=== PATIENT | male | born 1935 | race Caucasian/White ===

== ENCOUNTER 2022-06-01 00:11 | Day surgery (SDC) | payer MEDICARE, SELFPAY ==
[2022-05-23 13:48] VITALS: BMI 26.4
--- NOTE | 2022-05-23 14:14 | PC.NURSE ---
Report to the Outpatient Waiting Room, entrance under the green pavilion located off [facility], at time __8:00AM on date _06/01/22 . Planned Procedure Time: __9:00AM . Time changes happen often and if your time is changed the preop area will call you the afternoon before. - You and your visitor will be asked to self-screen and do not enter if you have any COVID symptoms. - Only one visitor is requested with a max of two and NO children visitors are allowed at this time. - The patient visitor may be requested to leave or wait in car when not with patient due to distancing restrictions. - A mask is optional within the hospital. Patients may have LIGHT BREAKFAST. - Infants may have breast milk until 4 hours before surgery, infant formula 6 hours prior to surgery. - Children will be allowed to drink immediately following surgery. If applicable, please bring a bottle or sippy cup to assist with drinking. Juice, water, soda, and popsicles are readily available. For infants on formula, please bring formula the day of surgery. Pacifiers are allowed. Take the following medications with a SIP of water the morning of surgery: __AMLODIPINE, ALBUTEROL INHALER NEEDED Medications to discontinue per physician ____NONE Date to take last dose Please no make-up, nail iraqi, hairspray, perfume, deodorant, or body powder the day of surgery. No jewelry (including any body piercings) or valuables the day of surgery, leave them at home. Please take a shower or bath the night before, or the morning of, surgery with an antibacterial soap. Wear comfortable, loose fitting clothing. Children are encouraged to wear pajamas. - Jewelry must be removed prior to entering the operating room. Rings and piercings that are not removed may be cut off. - The hospital will not accept responsibility for valuables. - Please leave all valuables, including medications, at home the day of surgery. If you are going home after surgery, MAY HAVE SILK SCREEN PRINTER HELPER OR DRIVE SELF. - NO public transportation without another adult if you receive anesthesia. - We recommend that an adult stay with you for 24 hours following discharge. - We also recommend that you do not drive, make important decision, drink alcoholic beverages, or take any drugs that were not prescribed by your health care provider for at least 24 hours after your discharge time. Follow any additional instructions given to you from your surgeon. If you or anyone in your household have experienced Covid symptoms in the past week, please notify your surgeon or the nurse liaison at the phone number below for possible testing. Telephone instructions given to ___PATIENT and asked if any additional questions and then verbalized understanding. Patient advised to call surgeon office or pre surgery nurse liaison [phone] if any additional questions.
[2022-06-01] VITALS (12 sets, daily range): BP systolic 140–194; BP diastolic 62–87; PULSE 70–94; RESP 16; TEMP 37.1; O2SAT 91–99; BMI 24.0
--- NOTE | 2022-06-01 07:27 | WPDHPUPDATE1 ---
History and Physical Update Update Date/Time: 06/01/22 07:27 History and Physical has been reviewed, including an updated exam of the patient. There are NO changes in the patient's condition. Risks, benefits, and alternatives have been discussed and questions answered. Patient agrees to proceed with procedure.
[2022-06-01] MEDS: LIDO 1%/EPINEPHRINE/PF 1:200,000 30 ML VIAL XX (08:16)
--- NOTE | 2022-06-01 08:33 | SUR.OPER ---
Frozen Section specimen given to OZIEL Portillo at 0830, received by Libertad in pathology lab at 0895
[2022-06-01] MEDS: BACITRACIN OINTMENT 15 GM TUBE 1 APPLIC TOPICAL (09:06)
--- NOTE | 2022-06-01 11:17 | P.OP_ITS ---
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 We also marked a placed on the left volar forearm for removal of the graft if needed. He was taken to the operating room and placed supine on the operating table. A time-out was held and confirmed. The extremity was prepped and draped in usual fashion. Markings were made for the incisions and all 3 sites were anesthetized with 1% lidocaine epinephrine. To allow time for hemostatic effect in lieu of a tourniquet we excised 1st the lesion from the radial thumb at the thenar mass. The full-thickness skin ellipse was taken and the specimen sent for permanent section. The wound was closed with intradermal 4-0 Vicryl suture and a running 5 0 nylon, closing the skin paralleling the local skin flexion lines. At that point I went ahead to incise the post full-thickness graft. That was elevated and defatted. The wound was closed with intradermal 4-0 Monocryl suture and a running 5 0 nylon. The previously biopsied squamous cell carcinoma in Situ at the base of the index finger was incised and removed with scissors from the underlying subcutaneous ti ssue. The neurovascular bundle was not clearly identified. The specimen was marked at its distal point on the index finger with a suture for 12 o'clock. The pathologist revealed diagnosis remained the same and that the margins were free. The defatted graft was inset with interrupted 6 0 nylon a couple of quilting sutures were placed across the middle of that. Small somewhat compressive bandage was applied to which was on ulnar base of the index finger proximal phalanx. The index and middle finger were then taped together without enough pressure to occlude the arteries. The same wrap was continued on to thenar wound. The donor site was dressed with gauze and Tegaderm. The patient was discharged from the operating stable condition. He is being discharged home with a suggestion for the use of Tylenol as needed for pain as well as elevation and icing if necessary. He is also prescribed cephalexin 500 mg t.i.d. 15. Estimated Blood Loss 2 Drains No Packing No Pathology Yes Complications No immediate complications Condition Stable Disposition Same day
== END 2022-06-01 10:00 | disposition home or self-care (01) ==
PROVIDERS: PCP Emergency Medicine; Visit Provider Plastic Surgery
PROC: (CPT 11622; principal; 2022-06-01 07:30)
DX: C44.629 Squamous cell carcinoma of skin of left upper limb, including shoulder (principal); L57.0 Actinic keratosis; I10 Essential (primary) hypertension; J45.909 Unspecified asthma, uncomplicated; Z87.891 Personal history of nicotine dependence
CPT/HCPCS: 11622; 15240; 11422; 12042; 88305; 88331; A9270

== ENCOUNTER 2023-04-11 10:45 | Emergency (ER) | payer MEDICARE, SELFPAY ==
[2023-04-11] VITALS (16 sets, daily range): BP systolic 117–143; BP diastolic 54–92; PULSE 69–93; RESP 13–21; TEMP 36.2–36.8; O2SAT 97–100
--- NOTE | ~2023-04-11 | CT_ITS ---
EXAMINATION: CT brain wo con DATE: 04/11/2023 18:10 INDICATION: Intracranial hemorrhage. TECHNIQUE: Computed tomography (CT) of the head was performed without intravenous contrast. The mA wa s adjusted according to patient size. Iterative reconstruction technique was employed. The dose-lengt h product was 983.67 mGy-cm. COMPARISON: Head CT at 11:47 AM FINDINGS: There is a mixed hypodense and hyperdense right frontoparietal subdural hematoma with maxim um thickness of 6 mm. There is a hypodense left frontoparietal subdural hematoma with maximum thickne ss of 5 mm. There is a small acute hyperdense subdural hematoma at the right cerebellar tentorium and inferior to right temporal lobe. There are scattered areas of low attenuation in the cerebral white matter, which is within normal limits for the patient's age. There is no acute ischemic infarct. The ventricles are normal in size. There are likely changes of ocular lens replacement surgeries. 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 There is mild mucosal thickening in the paranasal sinuses. The ma stoid air cells are normal. IMPRESSION: 1. 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 Stable small chronic left-sided subdu ral hematoma. Reviewed, dictated and finalized at location E. IMPRESSION: 1. 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 Stable small ch ronic left-sided subdural hematoma.
--- NOTE | ~2023-04-11 | CT_ITS ---
Noncontrast CT scan of the cervical spine Technique: Multiple contiguous axial [address] images of the cervical spine were obtained and rec onstructed in 2D sagittal and coronal planes on the acquisition scanner. Dose reduction technique was used on this scan by utilizing automated exposure control, adjustment of the mA and/or kV according to patient size. The dose-length product (DLP) was 255.25 mGy-cm. Clinical History: Pain Findings: No fracture identified. There is 3 mm retrolisthesis of C4 over C5. There is right neural f oraminal narrowing at C3-C4 related to prominent right facet arthropathy. There is right neural colby inal narrowing at C4-C5, with right facet arthropathy. There is bilateral neural foraminal narrowing, left worse than right, at C5-C6, with bilateral facet arthropathy, left worse than right. No prevert ebral soft tissue swelling. Impression: No fracture. 3 mm retrolisthesis of C4 over C5. Degenerative changes, as detailed above. Reviewed, dictated and finalized at [facility]. Impression: No fracture. 3 mm retrolisthesis of C4 over C5. Degenerative changes, as detailed above.
--- NOTE | ~2023-04-11 | XR_ITS ---
Clinical Indication: Weakness AP and lateral views of the chest: Comparison: 01/11/2010 Findings: The lungs are clear, without evidence of focal consolidation or pleural effusion. Cardiome diastinal silhouette is within normal limits. Bones and soft tissues are unremarkable. Impression: Normal chest. Reviewed, dictated and finalized at [facility]. Impression: Normal chest.
--- NOTE | ~2023-04-11 | CT_ITS ---
Non-contrast Head CT History: Altered mental status Technique: Axial non-contrast imaging of the brain was performed. Dose reduction technique was used on this scan by utilizing automated exposure control and iterative reconstruction technique. The dose -length product (DLP) was 605.33 mGy-cm. Findings: There is a small acute on chronic right cerebral convexity subdural hematoma. Area of acute hemorrhage measures up to 3 mm in thickness. There is also a very small chronic subdural hematoma/hy groma along the left frontal convexity.. The ventricles and subarachnoid spaces are normal in size. The calvarium appears normal. The visualized paranasal sinuses and mastoid air cells are clear. Impression: Small acute on chronic right frontal convexity subdural hematoma, as detailed above. 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 Case discussed with Dr. Florez at the time of this reading. Reviewed, dictated and finalized at [facility]. Impression: Small acute on chronic right frontal convexity subdural hematoma, as detailed a juanita. 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 Case discussed with Dr. Florez at the time of this reading.
--- NOTE | 2023-04-11 10:55 | ECG_ITS ---
Measurements Intervals [place] Rate: 77 P: [place]: 0 QRS: 92 QRSD: 110 T: 99 QT: 384 QTc: 437 Interpretive Statements ATRIAL FIBRILLATION BORDERLINE RIGHT AXIS DEVIATION [QRS AXIS > 90] ANTEROSEPTAL MYOCARDIAL INFARCTION , PROBABLY OLD [40+ ms Q WAVE IN V1-V4] NO PREVIOUS ECG AVAILABLE FOR COMPARISON Electronically Signed On 04-11-2023 15:05:16 CDT by Adonay Fernandez M.D.
--- NOTE | 2023-04-11 11:10 | PC.NURSE ---
spoke with DR. Florez regarding pt fall and s/s and CT head and neck ordered per V.O
[2023-04-11 11:40] LABS: Basophils Absolute Auto 0.1 K/mm3 (0.0-0.1); Basophils Percent Auto 0.6 % (0.2-1.2); Eosinophils Absolute Auto 0.2 K/mm3 (0-0.3); Eosinophils Percent Auto 2.2 % (0-4.4); Hematocrit 34.6 % (42.0-52.0); Hemoglobin 11.2 g/dL (14.0-18.0); Immature Granulocyte Absolute 0.03 K/mm3 (0.00-0.031); Immature Granulocyte Percent A 0.3 % (0-0.5); Lymphocytes Absolute Auto 1.02 K/mm3 (0.9-3.2); Lymphocytes Percent Auto 11.9 % (18.3-44.2); Mean Corpuscular HGB Conc 32.4 g/dl (32-36); Mean Corpuscular Hemoglobin 33.6 pg (26-34); Mean Corpuscular Volume 103.9 fl (80-100); Mean Platelet Volume 8.5 fl (7.4-10.4); Monocytes Absolute Auto 0.5 K/mm3 (0.1-0.6); Monocytes Percent Auto 6.1 % (2.6-8.5); Neutrophils Absolute Auto 6.8 K/mm3 (1.3-6.7); Neutrophils Percent Auto 78.9 % (45.5-73.1); Platelet Count Result 185 k/mm3 (150-375); Red Blood Count 3.33 M/mm3 (4.6-6.20); Red Cell Distribution Width 13.4 % (11.5-14.5); White Blood Count 8.6 K/mm3 (4.5-10.0)
[2023-04-11 11:51] LABS: Alanine Aminotransferase 22 U/L (6-50); Albumin Level 3.7 g/dL (3.5-5.1); Alkaline Phosphatase 58 U/L (38-126); Anion Gap 7 mmol/L (8-16); Aspartate Amino Transferase 25 U/L (17-59); Bilirubin,Total 1.1 mg/dL (0.2-1.3); Blood Urea Nitrogen 44 mg/dL (9-20); Calcium 8.9 mg/dL (8.4-10.2); Carbon Dioxide 24 mmol/L (22-30); Chloride 106 mmol/L (98-107); Estimated CRCL calculation 31 ml/min; Estimated Glomerular Filt Rate 34; Glucose 105 mg/dL (65-110); Potassium 3.8 mmol/L (3.4-5.0); Sodium 137 mmol/L (137-145)
--- NOTE | 2023-04-11 12:12 | ED.FALL ---
HPI - Fall General Chief Complaint: Fall Stated Complaint: fall 1 week ago, AMS Time Seen by Provider: 04/11/23 12:11 Source: patient and family Limitations: no limitations History of Present Illness HPI Narrative: 87 years old white male came from home with his family by ambulance complaining of worsening balance, unsteady gait over the last few days after falling 1 week ago. His is telling me that patient is having intermittent confusion and hallucination. She denied that the patient have any nausea or vomiting or fever or chills or or chest pain or shortness of breath. Patient currently on aspirin. Uses a walker, does not smoke or uses drugs, drinks daily Related Data Home Medications Medication Instructions Recorded Confirmed aspirin 81 mg tablet,delayed 81 mg PO HS 04/14/22 02/13/23 release (Adult Low Dose Aspirin) doxycycline hyclate 100 mg capsule mg PO BID 02/13/23 02/13/23 niacinamide 500 mg tablet 500 mg PO TID 02/13/23 02/13/23 Allergies Allergy/AdvReac Type Severity Reaction Status Date / Time No Known Allergies Allergy Verified 04/11/23 12:06 Review of Systems Review of Systems: All systems reviewed & are unremarkable except as noted in HPI and below PMFSH Past Medical History Medical History (Updated 04/11/23 @ 15:50 by Clarke Díaz MD) Polyp, nasal Family History Family History Mother Patient's mother is , Onset Age: 91 Father Family history of lung cancer, Onset Age: 52 Social History Social History (Updated 02/13/23 @ 11:31 by ROCÍO Sy) Smoking packs per day: 1.5 Smoking cigarettes per day: 30.0 Years smoked: 10 Smoking pack-years: 15.00 Smoking status: Former smoker Tobacco type: cigarettes Smoking end date: 12/24/1964 Alcohol intake: current Drinks per week: 14 Substance use: never Substance use type: does not use Lack of Transportation: No Lack of Food: Never True Current Housing: I Have Housing Concerned About Future Housing: No Difficulty Paying Gas/Electric Bills: No Difficulty Paying for Meds: No Currently Unemployed: No Education: High School Diploma/GED Difficulty w/ Childcare or Family Care: No Living arrangements: with family Additional living arrangements comments: Spiritual care concerns: No Exam Narrative: General appearance: Well-developed, well-nourished Skin: Normal color Head: Normocephalic, nontraumatic Eyes: Clear conjunctiva ENT: Oropharynx normal, ears normal, nose normal Neck: Supple, nontender Chest and respiratory: Airway patent, no respiratory distress, no accessory muscle use Heart: Regular rate/rhythm Abdomen: Soft, nontender, no organomegaly, quiet bowel sounds Vascular: Normal peripheral pulses, normal capillary refill. Musculoskeletal: Normal range of motion, nontender back, unsteady gait Neurologic: Alert and oriented ?3, MANAGER MEDIA RELATIONS is normal as tested, no gross motor deficit Course Consultations Consultation #1: DR WEST, neurosurgeon at [facility] who recommended to repeat CT scan of the head in 6 hours and if there is no new changes patient to go home to follow-up with his clinic in 1 week at [address] [facility], phone number is [phone] Date: 04/11/23 Time: 12:39 Vital Signs Vital signs: Vital Signs Temperature 36.2 C L 04/11/23 10:48 Pulse Rate 89 04/11/23 10:48 Respiratory Rate 16 04/11/23 10:48 Blood Pressure 122/71 04/11/23 10:48 Pulse Oximetry 99 04/11/23 10:48 Oxygen Delivery Room Air 04/11/23 10:48 Temperature 36.7 C 04/11/23 16:31 Pulse Rate
[2023-04-11 13:34] LABS: Prothrombin Time 13.6 Seconds (11.1-14.7)
[2023-04-11 13:35] LABS: Partial Thromboplastin Time 26.3 SECONDS (22.3-36.8)
[2023-04-11 13:39] LABS: Troponin I < 0.012 ng/mL (0.000-0.034)
--- NOTE | 2023-04-11 13:50 | ECG_ITS ---
Measurements Intervals [place] Rate: 75 P: MD: 0 QRS: 24 QRSD: 99 T: 39 QT: 286 QTc: 321 Interpretive Statements ATRIAL FIBRILLATION WITH ABERRANT CONDUCTION OR VENTRICULAR PREMATURE COMPLEXES ANTEROSEPTAL MYOCARDIAL INFARCTION , PROBABLY OLD [40+ ms Q WAVE IN V1-V4] COMPARED TO ECG 04/11/2023 12:29:00 NO SIGNFICANT CHANGES Electronically Signed On 04-11-2023 15:05:42 CDT by Adonay Fernandez M.D.
[2023-04-11 15:20] LABS: Appearance Urine Clear (Clear); Bacteria Urine None Seen /hpf; Bilirubin Urine Negative (Negative); Blood Urine Negative (Negative); Color Urine Yellow (Yellow); Glucose Urine UA Negative (Negative); Ketones Urine Negative (Negative); Leukocyte Esterase Ur Negative LEU/UL (Negative); Nitrate Urine Negative (Negative); Non Pathogenic Casts 0-2; Protein Urine 1+ mg/dL (Negative); RBC Urine 0-2 /hpf (0-2); Specific Grav Ur 1.019 (1.001-1.035); Squamous Epithelial Cell Urine None seen /hpf (Few); WBC Urine 0-5 /hpf; pH Urine 5.5 (5.0-9.0)
[2023-04-11 15:33] LABS: Add Urine Microscopic? YES
[2023-04-11] MEDS: SODIUM CHLORIDE 0.9% IV 1,000 ML 999 ML IV CONT (16:09)
== END 2023-04-11 20:26 | disposition home or self-care (01) ==
PROVIDERS: Emergency Medicine; Emergency Provider Emergency Medicine; PCP Emergency Medicine
DX: S06.5XAA Traumatic subdural hemorrhage with loss of consciousness status unknown, initial encounter (principal); I48.91 Unspecified atrial fibrillation; Z87.891 Personal history of nicotine dependence; Z79.82 Long term (current) use of aspirin; R94.31 Abnormal electrocardiogram [ECG] [EKG]; W19.XXXA Unspecified fall, initial encounter
CPT/HCPCS: 36415; 70450; 71046; 72125; 80053; 81001; 84484; 85025; 85610; 85730; 93005; 96360; 96361; 99284; J7030

== ENCOUNTER 2023-05-08 13:42 | Outpatient (CLI) | payer MEDICARE, SELFPAY ==
--- NOTE | ~2023-05-08 | CT_ITS ---
Non-contrast Head CT History: Subdural hemorrhage COMPARISON: 04/11/2023 Technique: Axial non-contrast imaging of the brain was performed. Dose reduction technique was used on this scan by utilizing automated exposure control and iterative reconstruction technique. The dose -length product (DLP) was 605.33 mGy-cm. Findings: There is no evidence of intracranial hemorrhage, mass lesion, or acute infarct. Brain par enchyma appears normal. The ventricles and subarachnoid spaces are normal in size. The calvarium ap pears normal. The visualized paranasal sinuses and mastoid air cells are clear. Impression: No significant abnormality seen. Previously noted small subdural hematomas are resolved. Reviewed, dictated and finalized at [facility]. ILES LAB TECHNICIAN Impression: No significant abnormality seen. Previously noted small subdural hematomas are resolved.
== END 2023-05-08 13:43 | disposition home or self-care (01) ==
PROVIDERS: PCP Emergency Medicine; Visit Provider Physician Assistant
DX: S06.5XAA Traumatic subdural hemorrhage with loss of consciousness status unknown, initial encounter (principal)
CPT/HCPCS: 70450

== ENCOUNTER 2023-06-07 14:44 | Outpatient (CLI) | payer MEDICARE, SELFPAY ==
[2023-06-07 15:42] LABS: Albumin Level 3.8 g/dL (3.5-5.1); Anion Gap 6 mmol/L (8-16); Blood Urea Nitrogen 34 mg/dL (9-20); Calcium 9.1 mg/dL (8.4-10.2); Carbon Dioxide 27 mmol/L (22-30); Chloride 106 mmol/L (98-107); Estimated Glomerular Filt Rate 41; Glucose 108 mg/dL (65-110); Phosphorus 3.7 mg/dL (2.5-4.5); Potassium 4.6 mmol/L (3.4-5.0); Sodium 139 mmol/L (137-145)
== END 2023-06-07 14:45 | disposition home or self-care (01) ==
LOC: ANHGOSHLAB 14:45
PROVIDERS: PCP Emergency Medicine; Visit Provider Emergency Medicine
DX: N18.9 Chronic kidney disease, unspecified (principal)
CPT/HCPCS: 36415; 80069

== ENCOUNTER 2023-08-24 07:59 | Outpatient (CLI) | payer MEDICARE, SELFPAY ==
--- NOTE | ~2023-08-24 | CT_ITS ---
EXAMINATION: CT abdomen pelvis w con DATE: 08/24/2023 08:41 INDICATION: Prostate cancer. TECHNIQUE: Computed tomography (CT) of the abdomen and pelvis was performed with 100 mL Omnipaque 350 intravenous contrast. Automated exposure control and iterative reconstruction technique were employe d. The dose-length product was 343.12 mGy-cm. COMPARISON: CT abdomen 05/20/2008 FINDINGS: The visualized portions of the lung bases demonstrate mild atelectasis. A calcified left mau ng nodule is consistent with old granulomatous disease. No pleural effusion. Cardiomegaly is noted. N o pericardial effusion. The liver is normal. The gallbladder is normal in size. Calcifications in the spleen are consistent with old granulomatous disease. There is an 18 mm cyst in the tail of the panc reas, new from 05/20/08, likely benign. The adrenal glands are normal. There is cortical thinning of the kidneys. There are cysts in the kidneys measuring up to 5.6 cm on the right. There is calcified a therosclerosis of the aorta and many of the other arteries. There is diverticulosis of the colon with out evidence of diverticulitis. There are no dilated loops of bowel. The appendix is not visualized. There are no pathologically enlarged lymph nodes. There is no free intraperitoneal fluid. 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 The prostate is severely enlarged. There is diffuse bladder wall thickening, likely secondary to chr onic obstruction. There is severe lumbar spondylosis. Lumbar dextroscoliosis is noted. There is mild thoracic spondylosis. IMPRESSION: 1. Severely enlarged prostate. No evidence of metastatic disease. Reviewed, dictated and finalized at location A. ATRIC RADIOLOGIST
--- NOTE | ~2023-08-24 | NM_ITS ---
EXAMINATION: NM bone scan whole body DATE: 08/24/2023 12:36 INDICATION: Prostate cancer TECHNIQUE: 25.7 mCi Tc-99m HDP was administered intravenously. Delayed whole-body scintigrams were o btained. COMPARISON: CT abdomen pelvis dated 08/24/2023 FINDINGS: Likely degenerative joint centered uptake at the medial compartments of both knees, at the bilateral acromioclavicular joints and at the radial aspect of the left carpus. Mild lumbar dextrocurvature wit h additional mild likely degenerative disc centered uptake at the left side of the mid lumbar spine p osterior spondylotic disc height loss with left-sided degenerative endplate changes at L2-L3. Additio nal likely degenerative uptake associated with severe bilateral facet osteoarthritis in the lower lum bar spine. No other suspicious foci of abnormal bone uptake to suggest metastatic disease. IMPRESSION: 1. Typical pattern of scattered degenerative joint and disc centered uptake. No lesion suspicious for metastatic disease. Reviewed, dictated and finalized at location L. WARE QUALITY ANALYST
[2023-08-24 08:34] LABS: Estimated Glomerular Filt Rate 44
== END 2023-08-24 08:00 | disposition home or self-care (01) ==
PROVIDERS: PCP Emergency Medicine; Visit Provider Urology
DX: N40.0 Benign prostatic hyperplasia without lower urinary tract symptoms (principal); C61 Malignant neoplasm of prostate
CPT/HCPCS: 74177; 78306; A9503; Q9967

== ENCOUNTER 2023-09-27 13:30 | Outpatient (RCR) | payer MEDICARE, SELFPAY ==
--- NOTE | 2023-08-31 17:06 | OPREHPOC ---
Outpatient Therapy Plan of Care This is a Multidisciplinary Plan of Care that may contain components documented by all disciplines (PT, OT, and ST.) PT Problem 1 PT Problem #1 Knowledge Deficit PT Goal 1 Goal Pt to be IND with issued HEP Target Visit 8 PT Problem 2 PT Problem #2 Impaired Strength PT Goal 1 Goal Pt to improve 5xSTS time from 27s to 20s without UE support. Target Visit 8 PT Problem 3 PT Problem #3 Impaired Balance PT Goal 1 Goal Pt to improve Tinetti score from 18/28 to 24/25. Target Visit 8 PT Goal 2 Goal Pt to demonstrate single leg balance of 10s on ea side. Target Visit 8 PT Problem 4 PT Problem #4 Impaired Safety Awareness PT Goal 1 Goal Pt to report no falls in the last month. Target Visit 8
--- NOTE | 2023-08-31 17:06 | PTOPEVAL1 ---
Assessment and note entered by Homero Garrison, PT, DPT Evaluation Information Assessment Status Evaluation Diagnosis unsteadiness on feet Subjective Information Pt states he is really unstable on his feet. He has a major fall in March with head contact leading to a small brain bleed. He has not had any other falls since March. He ambulates with a rollator, at home and when in the community. He has been using the rollator for over a year now. Pt reports a bad back that will sometime limit his walking distance. Reported Pain Level Pain Score 0: Self Report Assessment PT Clinical Summary Steve presents to therapy today for his initial evaluation with a diagnosis of unsteadiness on his feet and recurrent falls. Today he reports his last fall in Mar. He demonstrates a good walking speed for his age and gender, a slightly increased 5xSTS time; placing him at an increased fall risk, and a Tinetti score of 18/28; placing him at a high risk of falls. Overall he demonstrates good LE strength with static and dynamic balance being his greatest limitations. Skilled therapy services are indicated to address the deficits noted above, to improve safety awareness, and to minimize fall risk. Plan of Care Interventions Gait Training,Manual Therapy,Neuro Re-education, Patient/Caregiver Educati,Therapeutic Activities, Therapeutic Exercise PT Services Indicated Yes Treatment Frequency and 2x/wk for 8 visits Duration These treatments will address the objective and functional deficits as defined above. The patient will be advanced safely and appropriately in order for the patient to progress towards his/her prior level of function. Additional exercises will be introduced and as well as a comprehensive home exercise program upon discharge, if needed, ?to ensure carryover of functional gains achieved in the clinic. This treatment plan has been reviewed and agreement upon by the patient.
--- NOTE | 2023-09-27 15:43 | PTOPDC ---
Assessment and note entered by Homero Garrison, PT, DPT Evaluation Information Assessment Status Discharge Diagnosis unsteadiness on feet Subjective Information Pt states he does not notice any improvements in his balance since starting therapy, with a little bit of improvement in his strength. He declines any falls in the last month. He states he has been doing more walking since starting therapy but has an increase in R hip pain afterwards. Reported Pain Level Pain Score 2: Self Report Assessment PT Clinical Summary Steve presents to therapy today for his progress report following 8 visits of skilled therapy to treat his diagnosis of unsteadiness on his feet and recurrent falls. Today he reports no recent falls. His strength and gait speed has improved since starting therapy without a big improvement in his static or dynamic balance. Pts HEP progressed to be more balance focused, he plans to continue this upon discharge. Pt will be discharged at this time per his request. Plan of Care PT Services Indicated No
== END 2023-09-28 09:31 | disposition home or self-care (01) ==
LOC: ANHGOSHPT 13:30
PROVIDERS: PCP Emergency Medicine; Visit Provider Emergency Medicine
DX: R26.81 Unsteadiness on feet (principal); S06.5XAD Traumatic subdural hemorrhage with loss of consciousness status unknown, subsequent encounter; F07.81 Postconcussional syndrome
CPT/HCPCS: 97110; 97161; 97530

== ENCOUNTER 2024-02-19 10:38 | Outpatient (CLI) | payer MEDICARE, SELFPAY ==
[2024-02-19 14:10] LABS: Basophils Absolute Auto 0.1 K/mm3 (0.0-0.1); Eosinophils Absolute Auto 0.2 K/mm3 (0-0.3); Hematocrit 37.8 % (42.0-52.0); Hemoglobin 12.1 g/dL (14.0-18.0); Immature Granulocyte Absolute 0.02 K/mm3 (0.00-0.031); Immature Granulocyte Percent A 0.3 % (0-0.5); Lymphocytes Percent Auto 16.1 % (18.3-44.2); Mean Corpuscular Volume 106.2 fl (80-100); Mean Platelet Volume 9.7 fl (7.4-10.4); Monocytes Absolute Auto 0.4 K/mm3 (0.1-0.6); Monocytes Percent Auto 6.3 % (2.6-8.5); Neutrophils Absolute Auto 4.6 K/mm3 (1.3-6.7); Neutrophils Percent Auto 73.3 % (45.5-73.1); Platelet Count Result 189 k/mm3 (150-375); Red Blood Count 3.56 M/mm3 (4.6-6.20); Red Cell Distribution Width 11.5 % (11.5-14.5); White Blood Count 6.2 K/mm3 (4.5-10.0)
[2024-02-19 14:51] LABS: Alanine Aminotransferase 17 U/L (6-50); Albumin Level 3.7 g/dL (3.5-5.1); Alkaline Phosphatase 64 U/L (38-126); Anion Gap 6 mmol/L (4-12); Aspartate Amino Transferase 37 U/L (17-59); Bilirubin,Total 0.9 mg/dL (0.2-1.3); Blood Urea Nitrogen 28 mg/dL (9-20); Carbon Dioxide 31 mmol/L (22-30); Chloride 100 mmol/L (98-107); Estimated Glomerular Filt Rate 57; Glucose 119 mg/dL (65-110); Potassium 4.4 mmol/L (3.4-5.0); Sodium 137 mmol/L (137-145)
[2024-02-19 15:44] LABS: Macrocytosis 1+ (NORMAL); Ovalocytes 1+; Platelet Estimate Adequate (Adequate); Schistocytes None Seen
== END 2024-02-19 10:39 | disposition home or self-care (01) ==
LOC: ANHGOSHLAB 10:39
PROVIDERS: PCP Emergency Medicine; Visit Provider Emergency Medicine
DX: N18.9 Chronic kidney disease, unspecified (principal)
CPT/HCPCS: 36415; 80053; 85025

== ENCOUNTER 2024-02-19 10:45 | Outpatient (CLI) | payer MEDICARE, SELFPAY ==
--- NOTE | ~2024-02-19 | XR_ITS ---
AP and lateral views of the lateral hips Clinical history: Pain Findings: No acute fracture or dislocation is seen. Osseous alignment is anatomic. Bilateral hip and SI joint spaces are preserved. Soft tissues are unremarkable. Impression: No significant abnormality is seen. Reviewed, dictated and finalized at [facility]. Impression: No significant abnormality is seen.
== END 2024-02-19 10:46 ==
PROVIDERS: PCP Emergency Medicine; Visit Provider Emergency Medicine
DX: M16.0 Bilateral primary osteoarthritis of hip (principal)
CPT/HCPCS: 73521

== ENCOUNTER 2024-04-17 11:48 | Emergency (ER) | payer MEDICARE, SELFPAY ==
[2024-04-17 12:27] VITALS: BP 160/74; PULSE 75; RESP 16; TEMP 36.8; O2SAT 97
--- NOTE | 2024-04-17 12:45 | ED.BACK ---
HPI - Back Pain/Injury General Chief Complaint: Extremity Injury, Lower Stated Complaint: RT Leg Pain Time Seen by Provider: 04/17/24 12:42 Source: patient and RN notes reviewed Mode of arrival: ambulatory Limitations: no limitations History of Present Illness HPI Narrative: 88-year-old male presents with concern for pain that starts in his right hip and goes down to his right lateral lower leg. He denies any swelling, warmth. He reports walking, weight-bearing does not make the pain worse. He reports he has history of chronic back pain. He denies any new injury or trauma. Reports he had been having right hip pain he had x-rays for that was normal. Reports he is also having some numbness in the right foot in the right wing. He uses a walker at baseline. Denies weakness in any extremity. Denies abdominal pain, loss of bowel or bladder function, perianal anesthesia, fever. MD elicited complaint: back pain Related Data Home Medications Medication Instructions Recorded Confirmed tamsulosin 0.4 mg capsule mg PO 02/14/24 02/14/24 Allergies Allergy/AdvReac Type Severity Reaction Status Date / Time No Known Allergies Allergy Verified 02/14/24 10:27 Review of Systems Review of Systems: CONSTITUTIONAL: Denies malaise, chills, sweats, or fever. CARDIOVASCULAR: Denies chest pain, palpitations, or edema. RESPIRATORY: Denies cough or dyspnea. GASTROINTESTINAL: Denies abdominal pain, nausea, vomiting, diarrhea, loss of bowel function GENITOURINARY: Denies dysuria, hematuria, frequency, loss of bladder function. SKIN: Denies rash or itching. MUSCULOSKELETAL: Reports right low back pain, pain in the right hip and right lateral lower leg NEUROLOGIC: Denies numbness, weakness, or headache. All systems reviewed & are unremarkable except as noted in HPI and below PMFSH Past Medical History Medical History (Updated 04/17/24 @ 12:46 by Peace Joseph NP) Polyp, nasal Family History Family History Mother Patient's mother is , Onset Age: 91 Father Family history of lung cancer, Onset Age: 52 Social History Social History Smoking packs per day: 1.5 Smoking cigarettes per day: 30.0 Years smoked: 10 Smoking pack-years: 15.00 Smoking status: Former smoker Tobacco type: cigarettes Smoking end date: 12/24/1964 Alcohol intake: current Drinks per week: 14 Substance use: never Substance use type: does not use Lack of Transportation: No Lack of Food: Never True Current Housing: I Have Housing Concerned About Future Housing: No Difficulty Paying Gas/Electric Bills: No Difficulty Paying for Meds: No Currently Unemployed: No Education: Bachelor's Degree Difficulty w/ Childcare or Family Care: No Living arrangements: with family Additional living arrangements comments: Spiritual care concerns: No Comments At time of signature, agree with nursing past medical, surgical, social and family history. There is no relevant family history pertinent to the presenting complaint Exam Narrative: GENERAL: Well-appearing, well-nourished, and in no acute distress. HEAD: Normocephalic, atraumatic. EYES: PERRLA and EOMI. NECK: Supple. No lymphadenopathy. CHEST: Clear to auscultation. No respiratory distress. HEART: Regular rate and rhythm. Distal pulses palpable and equal, cap refill <3 seconds ABDOMEN: Soft, nontender, nondistended, normal active bowel sounds, no palpable or pulsatile masses. No CVA tenderness MUSCULOSKELETAL: Normal/baseline range of motion and strength in all extremities. Grossly Normal sensation in dermatomal distributions with sensitivity to touch. No midline back tenderness to palpation. Right paraspinal tenderness. Transfers from sitting to standing. SKIN: Warm, dry, no rash. No ecchymosis, erythema, open wounds to b
== END 2024-04-17 12:50 | disposition home or self-care (01) ==
PROVIDERS: Emergency Provider Nurse Practitioner; PCP Emergency Medicine
DX: M54.31 Sciatica, right side (principal); Z87.891 Personal history of nicotine dependence
CPT/HCPCS: 99213; G0463

== ENCOUNTER 2024-10-02 20:04 | Inpatient (IN) | payer MEDICARE, SELFPAY ==
--- NOTE | ~2024-10-02 | XR_ITS ---
EXAM/PROCEDURE: XR chest 1V portable - 10/05/2024 07:30 CDT HISTORY: 89 years old Male with eleavted wbc, r/o pneumonia TECHNIQUE: Two view(s) of the chest. COMPARISON: None available. FINDINGS: LUNGS/ PLEURA: Airspace opacity in the right inferior lung base. Edrx-li-cpmwfeqr pulmonary vascular congestion. HEART/ MEDIASTINUM: Mild cardiomegaly. Atherosclerotic calcifications are seen. BONES: Degenerative changes. OTHER: Visualized upper abdomen is unremarkable. IMPRESSION: Airspace opacity in the right lung base may represent pneumonia in appropriate clinical settings. Cli nical correlation is recommended. Short interval follow-up chest radiograph is recommended after appr opriate clinical therapy. Reviewed, dictated and finalized at location A. IMPRESSION: Airspace opacity in the right lung base may represent pneumonia in appropriate clinical settings. Clinical correlation is recommended. Short interval follow-u p chest radiograph is recommended after appropriate clinical therapy.
--- NOTE | ~2024-10-02 | CT_ITS ---
EXAM: CT brain wo con - 10/05/2024 11:36 CDT History: 89 years old Male with re eval of ams COMPARISON: 10/03/2024 PROCEDURE: CT of the head without contrast. Axial, sagittal and coronal reformatted planes were iliana luated. Automatic exposure control was used for this study. FINDINGS: 2.2 x 4.6 x 6.7 cm cm (craniocaudal x transverse x anteroposterior dimensions) acute intraparenchymal hemorrhage centered in the left frontoparietal region causing significant mass effect, diffuse sulca l effacement and compression on subjacent structures including left basal ganglia, left sylvian fissu re, third ventricle and left lateral ventricle. These findings appear slightly progressed since 2024. Rtxb-er-vpvjk midline shift of 3 mm. No downward herniation.Intraventricular extension of the acute i ntraparenchymal hemorrhage into the left lateral ventricle. No hydrocephalus. Mild cerebral atrophy and scattered areas of hypoattenuation in the cerebral white matter, likely chr onic small vessel ischemic changes at this age. Visualized paranasal sinuses and mastoid air cells ar e clear. Calvarium is intact. IMPRESSION: 6.7 cm acute intraparenchymal hemorrhage in the left frontoparietal region with intraventricular exte nsion, and causing significant mass effect and crlz-ig-axdaj midline shift of 3 mm, as detailed above . The findings appears slightly progressed since 10/03/2024. Reviewed, dictated and finalized at location A. IMPRESSION: 6.7 cm acute intraparenchymal hemorrhage in the left frontoparietal region with intraventricular extension, and causing significant mass effect and left-to-ri ght midline shift of 3 mm, as detailed above. The findings appears slightly pro gressed since 10/03/2024.
--- NOTE | ~2024-10-02 | CT_ITS ---
CTA brain carotid Ordering provider: Hayden Gonzales MD History: . altered mental status . Comparison: CT head done on the same day. Technique: CT angiogram head and neck was performed following timed intravenous injection of contrast . Thin slice axial images and reformatted coronal images were obtained. Three dimensional reformatted images of the brain were also obtained using a [employer] workstation. Radiation reduction technique ut ilized.The dose-length product was 1240.65 mGy-cm. FINDINGS: HEAD: The left transverse venous sinus is small in size which may be thrombosed or congenitally small. --ANTERIOR AND MIDDLE CEREBRAL ARTERIES AND BRANCHES: Normal caliber and contour. Absent right A1 seg ment. --INTERNAL CAROTID ARTERIES: Mild atheromatous disease but no significant stenosis. No occlusion. --BASILAR ARTERY AND BRANCHES: Normal caliber and contour. No atheromatous disease. --POSTERIOR CEREBRAL ARTERIES: Normal caliber and contour --POSTERIOR COMMUNICATING ARTERIES: The right continues as the posterior cerebral artery. The left is Not visualized which is probably related to congenital absence or small size. --ANEURYSM: None visualized. --BRAIN: Please refer to report of CT head performed the same day. --BONES AND SUPERFICIAL SOFT TISSUES: Please refer to report of CT head performed the same day. --PARANASAL SINUSES AND MASTOIDS: Please refer to report of CT head done the same day. NECK: --RIGHT CERVICAL CAROTID SYSTEM: Mild atheromatous disease of the carotid bulb and proximal internal carotid artery without significant stenosis. Percent stenosis per NASCET criteria is 60-70 % No medley tid dissection. Otherwise, no significant atheromatous disease or stenosis of the cervical carotid sy stem. Tortuous with right retropharyngeal position. --LEFT CERVICAL CAROTID SYSTEM: Mild atheromatous disease of the carotid bulb and proximal internal c arotid artery without significant stenosis. Percent stenosis per NASCET criteria is 30-40% No carotid dissection. Otherwise, no significant atheromatous disease or stenosis of the cervical carotid system. --VERTEBRAL ARTERIES: 50% Narrowing of the proximal left vertebral artery. Otherwise, Normal caliber and contour. --VISUALIZED AORTIC ARCH AND BRANCHING VESSELS: Mild atheromatous disease but no significant stenosis . Right pleural effusion with adjacent atelectasis seen. Similar --SOFT TISSUES: Normal. --CERVICAL SPINE: Age appropriate degenerative changes. IMPRESSION: 1. Normal CTA head. 2. CTA neck. Percent stenosis per NASCET criteria is 60-70% on the right side and 30-40% on the lef t side. 3. Absent right A1 segment. 4. The right posterior communicating artery continues as the posterior cerebral artery. 5. Tortuosity of the right carotid artery with retropharyngeal position. 6. Right pleural effusion with adjacent atelectasis. Reviewed, dictated and finalized at location A. IMPRESSION: 1. Normal CTA head. 2. CTA neck. Percent stenosis per NASCET criteria is 60-70% on the right side and 30-40% on the left side. 3. Absent right A1 segment. 4. The right posterior communicating artery continues as the posterior cerebra l artery. 5. Tortuosity of the right carotid artery with retropharyngeal position. 6. Right pleural effusion with adjacent atelectasis.
--- NOTE | ~2024-10-02 | MR_ITS ---
MRI of the brain Clinical History: Altered mental status Technique: Axial and sagittal T1-weighted images were acquired. These were followed by axial T2-weigh mercy, diffusion weighted, gradient, and FLAIR images. Findings: Exam degraded by motion artifact. There is large area of restricted diffusion involving the left temporal lobe, insular cortex and fron toparietal junction region, compatible with acute infarct. There extensive, somewhat amorphous and cu rvilinear areas of low signal within the infarct and gradient images, suggestive of petechial hemorrh age/hemorrhagic transformation. There is probable mild mass effect with relative mild compression of left lateral ventricle, but no significant midline shift. There is background mild to moderate chronic microvascular ischemic change in the periventricular whi te matter bilaterally. Orbits are unremarkable. Paranasal sinuses and mastoid air cells are clear. Sagittal midline structures are grossly intact. 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 There is mild mass effect with mild relative left l ateral ventricular compression, but no significant midline shift at this time. Case discussed with nurse nico Ortega at the time of this reading. Reviewed, dictated and finalized at location M. 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 There i s mild mass effect with mild relative left lateral ventricular compression, but no significant midline shift at this time. Case discussed with nurse nico Ortega at the time of this reading.
--- NOTE | ~2024-10-02 | CT_ITS ---
CT brain wo con Ordering provider: Hayden Gonzales MD History: 89 years Male with . altered mental status . Comparison: None. Technique: CT of the head without contrast. Radiation reduction technique utilized. The dose-length p roduct was 681 mGy-cm. FINDINGS: BRAIN PARENCHYMA AND CSF SPACES: Mild leukoaraiosis and diffuse cortical atrophy. Mild atheromatous d isease. No midline shift, mass effect or hemorrhage. The brain parenchyma and CSF spaces are otherwi se normal. VISUALIZED PARANASAL SINUSES: Left maxillary sinus disease. Otherwise, Well aerated. MASTOIDS: Well aerated. BONES: The bones appear intact. SOFT TISSUES: Visualized nasopharynx is normal. Superficial soft tissues are normal. IMPRESSION: No acute intracranial findings. Reviewed, dictated and finalized at location A.
--- NOTE | ~2024-10-02 | XR_ITS ---
XR chest 1V portable Ordering provider: Hayden Gonzales MD History: 89 years Male with . altered mental status . Comparison: April 11, 2023 FINDINGS: MEDIASTINUM: The cardiac silhouette is moderately enlarged. Congestive rosalnia. LUNGS: No effusions or pneumothorax. Minimal opacification the left lung base. Bilateral minimal inte rstitial thickening. OTHER: No free air under the diaphragm. IMPRESSION: Left basilar atelectasis versus pneumonia. Cardiomegaly with possible cardiac decompensation and pulmonary Reviewed, dictated and finalized at location A.
--- NOTE | ~2024-10-02 | MR_ITS ---
MRA HEAD History: Altered mental status Technique: 3D time of flight MRA of the head is performed. Findings: Exam is significantly degraded by motion artifact. The right and left distal vertebral zbigniew aayush and the basilar and posterior cerebral arteries apparent patent. Right and left distal internal carotid arteries and anterior and middle cerebral arteries appear patent. No definite large vessel oc clusion seen. Evaluation for aneurysm is limited due to motion artifact. Impression: No definite large vessel occlusion, though exam is significantly degraded by motion artifact. Reviewed, dictated and finalized at location M. Impression: No definite large vessel occlusion, though exam is significantly degraded by mo tion artifact.
--- NOTE | 2024-10-02 20:12 | ECG_ITS ---
Test Date: 2024-10-02 23:33:49 Measurements Intervals [place] Rate: 58 P: 0 DC: 0 QRS: 149 QRSD: 89 T: 52 QT: 406 QTc: 402 Interpretive Statements ATRIAL FIBRILLATION WITH SLOW VENTRICULAR RESPONSE RIGHT AXIS DEVIATION ANTEROSEPTAL INFARCT, AGE INDETERMINATE BASELINE ARTIFACT- I, III, AVL, AVF, V1, V6 ABNORMAL ECG No previous ECG available for comparison Electronically Signed On 10-03-2024 05:32:38 CDT by Lenin Douglass D.O.
[2024-10-02 20:13] LABS: Glucose Point of Care 164 mg/dl (65-105)
--- NOTE | 2024-10-02 20:20 | ED_ITS ---
HPI - General Adult General Chief complaint: Altered Mental Status Stated complaint: PINPOINT PUPILS, HTN, ASPIRATION, AMS Time Seen by Provider: 10/02/24 20:08 History of Present Illness HPI narrative: Patient 89-year-old gentleman presents emergency department with chief complaint altered mental status. Per EMS patient was eating a cookie and started choking the patient became minimally responsive and not following commands EMS reported that his pupils were small and reported that his blood pressure was elevated in the field Related Data Home Medications ?Medication ?Instructions ?Recorded ?Confirmed ?Last Taken ?Type tamsulosin 0.4 mg capsule mg PO 02/14/24 06/24/24 Unknown History Allergies Allergy/AdvReac Type Severity Reaction Status Date / Time No Known Allergies Allergy Verified 06/24/24 13:00 Review of Systems 2 Review of Systems: A 10 system review of systems was completed on the patient and is negative except for what is stated in the HPI. Nursing and ancillary documentation was reviewed. [facility] Past Medical History Medical History Peripheral arterial disease Polyp, nasal Family History Family History Mother Patient's mother is , Onset Age: 91 Father Family history of lung cancer, Onset Age: 52 Social History Social History Smoking packs per day: 1.5 Smoking cigarettes per day: 30.0 Years smoked: 10 Smoking pack-years: 15.00 Smoking status: Former smoker Tobacco type: cigarettes Smoking end date: 12/24/1964 Alcohol intake: current Drinks per week: 14 Substance use: never Substance use type: does not use Lack of Transportation: No Lack of Food: Never True Current Housing: I Have Housing Concerned About Future Housing: No Difficulty Paying Gas/Electric Bills: No Difficulty Paying for Meds: No Currently Unemployed: No Education: Bachelor's Degree Difficulty w/ Childcare or Family Care: No Living arrangements: with family Additional living arrangements comments: Spiritual care concerns: No Course Vital Signs Vital signs: Vital Signs Temperature 36.9 C 10/02/24 20:47 Pulse Rate 95 10/02/24 20:47 Respiratory Rate 20 10/02/24 20:47 Blood Pressure 209/105 H 10/02/24 20:47 Pulse Oximetry 94 10/02/24 20:47 Oxygen Delivery Room Air 10/02/24 20:47 Temperature 36.6 C 10/02/24 23:04 Pulse Rate 73 10/02/24 23:04 Respiratory Rate 25 H 10/02/24 23:04 Blood Pressure 183/52 H 10/02/24 23:04 Pulse Oximetry 93 10/02/24 23:04 Oxygen Delivery Room Air 10/02/24 20:57 Medical Decision Making [facility] Narrative Medical decision making narrative: Differential diagnosis includes seizure, hypertensive emergency, electrolyte abnormality, CVA, intracranial hemorrhage, CT head showed no evidence of hemorrhage CT angiography showed no evidence of large vessel occlusion ABG showed no evidence of acute hypoxia or metabolic acidosis electrolytes showed a BUN of 28 creatinine 1.45 lactate was 2.1 BNP was 5240 troponin 0.013 urinalysis showed no evidence of UTI toxicology screens were negative COVID flu and RSV were negative Concern for seizure with prolonged postictal phase verses CVA patient would not be a tPA candidate due to intracranial hemorrhage history Case was discussed with neurology who agreed that the patient is not a tPA candidate Plan will be to admit the patient to the hospitalist service with plans for MRI and EEG Vital Signs Vital Signs: Vital Signs Temperature 36.9 C 10/02/24 20:47 Pulse Rate 95 10/02/24 20:47 Respiratory Rate 20 10/02/24 20:47 Blood Pressure 209/105 H 10/02/24 20:47 Pulse Oximetry 94 10/02/24 20:47 Oxygen Delivery Room Air 10/02/24 20:47 Temperature 36.6 C 10/02/24 23:04 Pulse Rate 73 10/02/24 23:04 Respiratory Rate 25 H 10/02/24 23:04 Blood Pressure 183/52 H 10/02/24 23:04 Pulse Oximetry 93 10/02/24 23:04 Oxygen Delivery Room Air 10/02/24 20:57 Lab Data 10/02/24 20:15 10/02/24 21:05 Labs: Lab Results 10/02/24 10/02/24 10/02/24 Range/Units 20:11 20:15 20:22 WBC 6.6 (4.5-10.0) K/mm3 RBC 3.52 L (4.6-6.20) M/mm3 Hgb 11.7 L (14.0-18.0) g/dL Hct 36.1 L (42.0-52.0) % MCV 102.6 H (80-100) fl MCH 33.2 (26-34) pg MCHC 32.4 (32-36) g/dl RDW 12.5 (11.5-14.5) % Plt Count 191 (150-375) k/mm3 MPV 10.0 (7.4-10.4) fl Immature Gran % (Auto) 0.3 (0-0.5) % Neut % (Auto) 76.9 H (45.5-73.1) % Lymph % (Auto) 12.3 L (18.3-44.2) % Stevens % (Auto) 6.7 (2.6-8.5) % Eos % (Auto) 2.9 (0-4.4) % Baso % (Auto) 0.9 (0.2-1.2) % Lymph # (Auto) 0.81 L (0.9-3.2) K/mm3 Stevens # (Auto) 0.4 (0.1-0.6) K/mm3 Eos # (Auto) 0.2 (0-0.3) K/mm3 Baso # (Auto) 0.1 (0.0-0.1) K/mm3 Abs Immat Gran (auto) 0.02 (0.00-0.031) K/mm3 Absolute Neuts (auto) 5.1 (1.3-6.7) K/mm3 Absolute Nucleated RBC 0.000 (0.0-0.012) K/mm3 Nucleated RBC % 0.0 (0.0-0.2) % % Immature Plt Fraction 3.1 (0.9-11.2) % PT 13.6 (11.1-14.7) Seconds INR 1.0 APTT 23.0 (22.3-36.8) Seconds Sodium (137-145) mmol/L Potassium (3.4-5.0) mmol/L Chloride (98-107) mmol/L Carbon Dioxide (22-30) mmol/L Anion Gap (4-12) mmol/L BUN (9-20) mg/dL Creatinine (0.7-1.3) mg/dL Estim Creat Clear Calc Estimated GFR (59 - ) Glucose (65-110) mg/dL POC Capillary Glucose 164 H (65-105) mg/dl Lactic Acid 2.1 H (0.7-2.0) mmol/L Calcium (8.4-10.2) mg/dL Magnesium (1.6-2.3) mg/dL Total Bilirubin (0.2-1.3) mg/dL AST (17-59) U/L ALT (6-50) U/L Alkaline Phosphatase (38-126) U/L Ammonia (9-30) umol/L Troponin I (0.000-0.034) ng/mL NT-Pro-B Natriuret Pep (19.9-100) pg/mL Total Protein (6.3-8.2) g/dL Albumin (3.5-5.1) g/dL Urine Color Yellow (Yellow) Urine Appearance Clear (Clear) Urine pH 6.5 (5.0-9.0) Ur Specific [place] 1.015 (1.001-1.035) Urine Protein 3+ H (Negative) mg/dL Urine Glucose (UA) Negative (Negative) mg/dL Urine Ketones Negative (Negative) mg/dL Ur Blood (Man) 2+ H (Negative) Urine Nitrate Negative (Negative) Urine Bilirubin Negative (Negative) Urine Urobilinogen 1.0 (<2.0) mg/dL Add Ur Microanalysis Reviewed Leukocyte Esterase Rfl Negative (Negative) GURDEEP/UL Urine RBC 21-50 H (0-2) /hpf Urine WBC 6-10 H (0-3) /hpf Ur Squamous Epith Cells None seen (Few) /hpf Urine Bacteria None seen /hpf Urine Casts 0-2 Urine Opiates Screen Negative (Negative) Urine Methadone Screen Negative (Negative) Ur Barbiturates Screen Negative (Negative) Ur Phencyclidine Scrn Negative (Negative) Ur Amphetamine Screen Negative (Negative) U Benzodiazepines Scrn Negative (Negative) Urine Cocaine Screen Negative (Negative) U Cannabinoids Screen Negative (Negative) Ethyl Alcohol 18 (<10) mg/dL Influenza A (RT-PCR) (Negative) Influenza B (RT-PCR) (Negative) RSV (RT-PCR) (Negative) SARS-CoV-2 RNA (RT-PCR) (Negative) 10/02/24 10/02/24 10/02/24 Range/Units 20:52 21:05 22:08 WBC (4.5-10.0) K/mm3 RBC (4.6-6.20) M/mm3 Hgb (14.0-18.0) g/dL Hct (42.0-52.0) % MCV (80-100) fl MCH (26-34) pg MCHC (32-36) g/dl RDW (11.5-14.5) % Plt Count (150-375) k/mm3 MPV (7.4-10.4) fl Immature Gran % (Auto) (0-0.5) % Neut % (Auto) (45.5-73.1) % Lymph % (Auto) (18.3-44.2) % Stevens % (Auto) (2.6-8.5) % Eos % (Auto) (0-4.4) % Baso % (Auto) (0.2-1.2) % Lymph # (Auto) (0.9-3.2) K/mm3 Stevens # (Auto) (0.1-0.6) K/mm3 Eos # (Auto) (0-0.3) K/mm3 Baso # (Auto) (0.0-0.1) K/mm3 Abs Immat Gran (auto) (0.00-0.031) K/mm3 Absolute Neuts (auto) (1.3-6.7) K/mm3 Absolute Nucleated RBC (0.0-0.012) K/mm3 Nucleated RBC % (0.0-0.2) % % Immature Plt Fraction (0.9-11.2) % PT (11.1-14.7) Seconds INR APTT (22.3-36.8) Seconds Sodium 135 L (137-145) mmol/L Potassium 4.8 (3.4-5.0) mmol/L Chloride 101 (98-107) mmol/L Carbon Dioxide 26 (22-30) mmol/L Anion Gap 8 (4-12) mmol/L BUN 28 H (9-20) mg/dL Creatinine 1.45 H (0.7-1.3) mg/dL Estim Creat Clear Calc Not Reportable Estimated GFR 46 L (59 - ) Glucose 138 H (65-110) mg/dL POC Capillary Glucose (65-105) mg/dl Lactic Acid (0.7-2.0) mmol/L Calcium 8.4 (8.4-10.2) mg/dL Magnesium 1.7 (1.6-2.3) mg/dL Total Bilirubin 0.7 (0.2-1.3) mg/dL AST 34 (17-59) U/L ALT 23 (6-50) U/L Alkaline Phosphatase 73 (38-126) U/L Ammonia 11 (9-30) umol/L Troponin I 0.013 (0.000-0.034) ng/mL NT-Pro-B Natriuret Pep 5240 H (19.9-100) pg/mL Total Protein 7.0 (6.3-8.2) g/dL Albumin 3.7 (3.5-5.1) g/dL Urine Color (Yellow) Urine Appearance (Clear) Urine pH (5.0-9.0) Ur Specific [place] (1.001-1.035) Urine Protein (Negative) mg/dL Urine Glucose (UA) (Negative) mg/dL Urine Ketones (Negative) mg/dL Ur Blood (Man) (Negative) Urine Nitrate (Negative) Urine Bilirubin (Negative) Urine Urobilinogen (<2.0) mg/dL Add Ur Microanalysis Leukocyte Esterase Rfl (Negative) GURDEEP/UL Urine RBC (0-2) /hpf Urine WBC (0-3) /hpf Ur Squamous Epith Cells (Few) /hpf Urine Bacteria /hpf Urine Casts Urine Opiates Screen (Negative) Urine Methadone Screen (Negative) Ur Barbiturates Screen (Negative) Ur Phencyclidine Scrn (Negative) Ur Amphetamine Screen (Negative) U Benzodiazepines Scrn (Negative) Urine Cocaine Screen (Negative) U Cannabinoids Screen (Negative) Ethyl Alcohol (<10) mg/dL Influenza A (RT-PCR) Negative (Negative) Influenza B (RT-PCR) Negative (Negative) RSV (RT-PCR) Negative (Negative) SARS-CoV-2 RNA (RT-PCR) Negative (Negative) ABG Data ABG results: 10/02/24 20:45 Puncture Site Right brachial ABG pH 7.382 ABG pCO2 38.8 ABG pO2 64.5 L ABG PO2/FiO2 Ratio 3.07 ABG HCO3 22.5 ABG O2 Saturation 92.4 L ABG O2 Content 15.9 L ABG Base Excess -2.2 A-a Gradient 38.8 Oxyhemoglobin 92.0 Total Hemoglobin 12.3 O2 Delivery Device Room air O2 Liters/Min Not Reportable FiO2 21 Critical Care Time Critical Care Time Critical Care Time: Yes Total Critical Care Time: 35 Discharge Plan Discharge Clinical Impression: Altered mental status Patient Disposition: Still a Patient Condition: Stable Patient Language: Latvian Prescriptions: No Action tamsulosin 0.4 mg capsule PO aspirin 81 mg capsule 81 mg PO DAILY Qty: 30 0RF acetaminophen 500 mg capsule 1,000 mg PO Q6H PRN (Reason: pain) Qty: 30 0RF triamcinolone acetonide 0.1 % cream 1 applic topical BID PRN (Reason: Rash) Qty: 453.6 0RF Rx Instructions: apply to affected area as needed twice daily albuterol sulfate 90 mcg/actuation HFA aerosol inhaler See Rx Instructions .ROUTE .COMPLEX Qty: 8.5 2RF Dose Instruction: INHALE 1 PUFF BY MOUTH EVERY 4 HOURS NEEDED Rx Instructions: INHALE 1 PUFF BY MOUTH EVERY 4 HOURS NEEDED simvastatin 40 mg tablet 40 mg PO HS Qty: 90 1RF irbesartan-hydrochlorothiazide 300-12.5 mg tablet See Rx Instructions .ROUTE .COMPLEX Qty: 90 1RF Dose Instruction: TAKE 1 TABLET BY MOUTH DAILY AT BEDTIME Rx Instructions: TAKE 1 TABLET BY MOUTH DAILY AT BEDTIME Follow-up/Referrals: Deepak Navarro DO [Primary Care Provider] - Time of Disposition: 23:03
--- OUTSIDE RECORDS SUMMARY | 2024-10-02 20:21 | XMS_ITS | Clinical Summary ---
Author Organization [facility] Address Formerly [facility], [facility] [place] [address] Care Team Providers Care Rn Homecare Name Role Phone Carlotta Araujo NP Primary Care Provider [phone] Medications Irbesartan-hydr oCHLOROthiazide 300-12.5 MG Tab Take 1 tablet by mouth nightly at bedtime. 05/27/2023 Active simvastatin (ZOCOR) 40 MG tablet Take 1 tablet (40 mg total) by mouth nightly at bedtime. at bedtime. 05/02/2023 Active albuterol sulfate HFA 108 (90 Base) MCG/ACT inhaler Inhale 1 puff into the lungs every 4 (four) hours as needed. 07/23/2023 Active amLODIPine (NORVASC) 5 MG tablet Take 1 tablet (5 mg total) by mouth daily. 06/07/2023 Active Active Problems No known active problems Social History Tobacco Use Types Packs/Day Years Used Date Smoking Tobacco: Never Smokeless Tobacco: Never Tobacco Cessation:Counseling Given: No Sex and Gender Information Value Date Recorded Sex Assigned at Not on file Legal Sex Male 1:06 PM MALARIOLOGIST Gender Identity Not on file Sexual Orientation Not on file Last Filed Vital Signs Vital Sign Reading Time Taken Comments Blood Pressure 123/89 07/26/2023 10:18 AM MALARIOLOGIST Pulse 85 07/26/2023 10:18 AM MALARIOLOGIST Temperature - - Respiratory Rate - - Oxygen Saturation 100% 07/26/2023 10:18 AM MALARIOLOGIST Inhaled Oxygen Concentration - - Weight - - Height 177.8 cm (5' 10 ) 07/26/2023 10:18 AM MALARIOLOGIST Body Mass Index - - Plan of Treatment Health Maintenance Due Date Last Done Comments Zoster Vaccines (1 of 2) 1985 Annual Medicare Wellness Visit 2000 Pneumococcal Vaccine: 65+ Years (1 of 1 - PCV) 2000 RSV Immunization or 60+ Years (1 - 1-dose 75+ series) 2010 DTaP, Tdap and Td Vaccines (1 - Tdap) 06/10/2021 06/09/2021 COVID-19 Vaccine ( season) 2024 2023, 2022, 11/30/2021, Additional history exists PHQ-2 (Physician [place]) 06/26/2024 Meningococcal B Vaccine Aged Out No l onger eligible based on patient's age to complete this topic Meningococcal Vaccine Aged Out No austen jani eligible based on patient's age to complete this topic RSV Immunizations Under 20 Months Aged Out No longer eligible based on patient's age to complete this topic Insurance [facility] Care Teams Rn Homecare Relationship Specialty Start Date End Date Carlotta Arajuo NP [address] [place] [address] PCP - General Nurse Practitioner Family 06/21/23
--- OUTSIDE RECORDS SUMMARY | 2024-10-02 20:21 | XMS_ITS | Clinical Summary ---
Author Organization [facility] [address] Address [address] [place] [address] Care Team Providers Care Second Crusher Name Role Phone Spencer Fields MD Primary Care Provider [phone] Allergies No known active allergies Medications tamsulosin (FLOMAX) 0.4 mg extended release capsule Take 1 capsule (0.4 mg total) by mouth nightly 02/22/2024 Active simvastatin (ZOCOR) 40 mg tablet Take 1 tablet (40 mg total) by mouth daily 05/02/2023 Active irbesartan-hydr oCHLOROthiazide (AVALIDE) 300-12.5 mg per tablet Take 1 tablet by mouth nightly Active predniSONE (DELTASONE) 20 mg tablet Take by mouth Active aspirin 81 mg enteric coated tablet Take 1 tablet (81 mg total) by mouth daily Active acetaminophen 500 mg capsule Take by mouth Active albuterol-budes onide 90-80 mcg/actuation HFA aerosol inhaler Inhale Active Active Problems Problem Noted Date Diagnosed Date 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 Will obtain a baseline arterial duplex follow-up 1 week. PVD (peripheral vascular disease) 05/16/2024 Assessment & Plan (05/16/2024 1:51 PM FORESTRY FOREMAN): Impression: Patient has stable non disabling claudication to bilateral lower extremities. He denies any ischemic rest pain or ulcerations to his lower extremity. Patient has biphasic waveforms to bilateral lower extremities with ABIs of 0.82 to the right lower extremity and noncompressible vessels to left lower extremity. Plan: Continue ongoing risk factor modifications. -patient to follow-up in 6 months for re-evaluation with repeat lower extremity arterial Doppler. Primary hypertension 05/16/2024 Assessment & Plan (05/19/2024 2:39 PM FORESTRY FOREMAN): Hypertension chronic controlled. Continue current medical management. Assessment & Plan (05/16/2024 1:50 PM FORESTRY FOREMAN): Impression: Chronic and stable. Plan: Continue irbesartan-hydrochlorothiazide Mixed hyperlipidemia 05/16/2024 Assessment & Plan (05/19/2024 2:39 PM FORESTRY FOREMAN): Hyperlipidemia chronic controlled. Continue Zocor. Assessment & Plan (05/16/2024 1:50 PM FORESTRY FOREMAN): Impression: Chronic stable. Plan: Continue simvastatin. Social History Tobacco Use Types Packs/Day Years Used Date Smoking Tobacco: Former Cigarettes Tobacco Cessation:Counseling Given: Not Answered Sex and Gender Information Value Date Recorded Sex Assigned at Not on file Legal Sex Male 9:19 AM CDT Gender Identity Not on file Sexual Orientation Not on file Obstetrics History Last Filed Vital Signs Vital Sign Reading Time Taken Comments Blood Pressure 137/59 05/15/2024 9:27 AM FORESTRY FOREMAN Pulse 71 05/15/2024 9:27 AM FORESTRY FOREMAN Temperature - - Respiratory Rate - - Oxygen Saturation - - Inhaled Oxygen Concentration - - Weight 71.7 kg (158 lb) 05/15/2024 9:27 AM FORESTRY FOREMAN Height 177.8 cm (5' 10 ) 05/15/2024 9:27 AM FORESTRY FOREMAN Body Mass Index 22.67 05/15/2024 9:27 AM FORESTRY FOREMAN Plan of Treatment Health Maintenance Due Date Last Done Comments Depression Screening 1935 Fall Risk Assessment 1935 DTaP/Tdap/Td Vaccine (1 - Tdap) 1946 Hepatitis B Screening 1953 Pneumococcal vaccine 65+ (1 of 1 - PCV) 1985 Zoster Vaccine (1 of 2) 1985 Well Visit 65+ 2000 Influenza Vaccine (#1) 2024 Insurance [facility] Address: [address] [address] [place] [id number] [facility] Address: [address] [address] [place] [phone] Care Teams Second Crusher Relationship Specialty Start Date End Date Spencer Fields MD [address] [place] [address] PCP - General Family Medicine 11/26/18
--- OUTSIDE RECORDS SUMMARY | 2024-10-02 20:21 | XMS_ITS | Referral Summary ---
Author Organization [facility] [address] Address [address] [place] [address] Care Team Providers Care Butcher Or Smallgoods Maker Name Role Phone Spencer Fields MD Primary Care Provider [phone] Allergies No known active allergies Medications tamsulosin [...] Problem Noted Date Diagnosed Date Atherosclerosis of nome ar lonny of both lower extremities with intermittent claudication 05/19/2024 Assessment & Plan (05/19/2024 2:39 PM PANMAN): Has history of underlying arterial occlusive disease but does not appear to be the underlying etiology of his bilateral ankle pain. Will obtain a baseline arterial duplex follow-up 1 week. PVD (peripheral vascular disease) 05/16/2024 Assessment & Plan (05/16/2024 1:51 PM PANMAN): Impression: Patient has stable non disabling claudication [...] 05/16/2024 Assessment & Plan (05/19/2024 2:39 PM PANMAN): Hypertension chronic controlled. Continue current medical management. Assessment & Plan (05/16/2024 1:50 PM PANMAN): Impression: Chronic and stable. Plan: Continue irbesartan-hydrochlorothiazide Mixed hyperlipidemia 05/16/2024 Assessment & Plan (05/19/2024 2:39 PM PANMAN): Hyperlipidemia chronic controlled. Continue Zocor. Assessment & Plan (05/16/2024 1:50 PM PANMAN): Impression: Chronic stable. Plan: Continue simvastatin. Social [...] Comments Blood Pressure 137/59 05/15/2024 9:27 AM PANMAN Pulse 71 05/15/2024 9:27 AM PANMAN Temperature - - Respiratory Rate - - Oxygen Saturation - - Inhaled Oxygen Concentration - - Weight 71.7 kg (158 lb) 05/15/2024 9:27 AM PANMAN Height 177.8 cm (5' 10 ) 05/15/2024 9:27 AM PANMAN Body Mass Index 22.67 05/15/2024 9:27 AM PANMAN Plan of Treatment Not on file Insurance [facility] MDCR HMO REF [facility] Address: [address] [address] [place] [id number] [facility] MEDICARE [facility] [facility] Address: [address] [address] [place] [address] [employer] MEDICARE ADVANTAGE [facility] Address: [place] [id number] [place] [phone] Care Teams Butcher Or Smallgoods Maker Relationship Specialty Start Date End Date Spencer Fields MD [address] [place], [place] [address] PCP - General Family Medicine 11/26/18
[2024-10-02 20:26] LABS: Basophils Absolute Auto 0.1 K/mm3 (0.0-0.1); Basophils Percent Auto 0.9 % (0.2-1.2); Eosinophils Absolute Auto 0.2 K/mm3 (0-0.3); Eosinophils Percent Auto 2.9 % (0-4.4); Hematocrit 36.1 % (42.0-52.0); Hemoglobin 11.7 g/dL (14.0-18.0); Immature Granulocyte Absolute 0.02 K/mm3 (0.00-0.031); Immature Granulocyte Percent A 0.3 % (0-0.5); Immature Platelet Fraction Pct 3.1 % (0.9-11.2); Lymphocytes Absolute Auto 0.81 K/mm3 (0.9-3.2); Lymphocytes Percent Auto 12.3 % (18.3-44.2); Mean Corpuscular HGB Conc 32.4 g/dl (32-36); Mean Corpuscular Hemoglobin 33.2 pg (26-34); Mean Corpuscular Volume 102.6 fl (80-100); Monocytes Absolute Auto 0.4 K/mm3 (0.1-0.6); Monocytes Percent Auto 6.7 % (2.6-8.5); Neutrophils Absolute Auto 5.1 K/mm3 (1.3-6.7); Neutrophils Percent Auto 76.9 % (45.5-73.1); Platelet Count Result 191 k/mm3 (150-375); Red Blood Count 3.52 M/mm3 (4.6-6.20); Red Cell Distribution Width 12.5 % (11.5-14.5); White Blood Count 6.6 K/mm3 (4.5-10.0)
[2024-10-02 20:32] LABS: Ethanol 18 mg/dL (<10)
[2024-10-02 20:33] LABS: Lactic Acid Reflex 2.1 mmol/L (0.7-2.0)
[2024-10-02 20:36] LABS: Prothrombin Time 13.6 Seconds (11.1-14.7)
[2024-10-02 20:47] VITALS: BP 209/105; PULSE 95; RESP 20; TEMP 36.9; O2SAT 94
[2024-10-02 20:48] LABS: Alveolar/Arterial O2 Gradient 38.8 mmHg; Base Excess ABG -2.2 mEq/l (+/-2.0); Fractional Inspired Oxygen 21 %; HCO3 ABG 22.5 mEq/l (22.0-26.0); Oxygen Content ABG 15.9 %vol (16.0-22.0); Oxygen Saturation ABG 92.4 % (95.0-100.0); PCO2 ABG 38.8 mmHg (35.0-45.0); PO2 ABG 64.5 mmHg (80.0-100.0); PO2 FiO2 Ratio Arterial Blood 3.07 %; Total Hemoglobin 12.3 g/dL (12.0-18.0); pH ABG 7.382 (7.350-7.450)
[2024-10-02 20:49] VITALS: PULSE 92
[2024-10-02 20:49] LABS: Device ROOM AIR; Site Drawn RIGHT BRACHIAL
--- NOTE | 2024-10-02 20:50 | PCRCNOTE ---
ABG delayed due to patient was in CT.
[2024-10-02 20:54] LABS: Add Urine Microscopic? YES; Appearance Urine Clear (Clear); Bacteria Urine None Seen /hpf; Bilirubin Urine Negative (Negative); Blood Urine 2+ (Negative); Color Urine Yellow (Yellow); Glucose Urine UA Negative (Negative); Ketones Urine Negative (Negative); Leukocyte Esterase Ur Negative LEU/UL (Negative); Need Manual Microscopic Reviewed; Nitrate Urine Negative (Negative); Non Pathogenic Casts 0-2; Protein Urine 3+ mg/dL (Negative); RBC Urine 21-50 /hpf (0-2); Specific Grav Ur 1.015 (1.001-1.035); Squamous Epithelial Cell Urine None Seen /hpf (Few); pH Urine 6.5 (5.0-9.0)
[2024-10-02 20:57] VITALS: O2SAT 94
[2024-10-02 20:59] LABS: Amphetamine Screen Urine Negative (Negative); Barbiturate Screen Urine Negative (Negative); Benzodiazepines Screen Urine Negative (Negative); Cannabinoid Screen Urine Negative (Negative); Cocaine Screen Urine Negative (Negative); Methadone Screen Urine Negative (Negative); Opiate Screen Urine Negative (Negative); Phencyclidine Screen Urine Negative (Negative)
[2024-10-02 21:32] LABS: Alanine Aminotransferase 23 U/L (6-50); Albumin Level 3.7 g/dL (3.5-5.1); Alkaline Phosphatase 73 U/L (38-126); Anion Gap 8 mmol/L (4-12); Aspartate Amino Transferase 34 U/L (17-59); Bilirubin,Total 0.7 mg/dL (0.2-1.3); Blood Urea Nitrogen 28 mg/dL (9-20); Calcium 8.4 mg/dL (8.4-10.2); Carbon Dioxide 26 mmol/L (22-30); Chloride 101 mmol/L (98-107); Estimated Glomerular Filt Rate 46; Glucose 138 mg/dL (65-110); Magnesium 1.7 mg/dL (1.6-2.3); Potassium 4.8 mmol/L (3.4-5.0); Sodium 135 mmol/L (137-145)
[2024-10-02 21:38] LABS: Influenza A QL RT-PCR Negative (Negative); Influenza B QL RT-PCR Negative (Negative); RSV RNA, RT-PCR Negative (Negative); SARS-CoV-2 RNA PCR Negative (Negative)
[2024-10-02 21:42] LABS: NT Pro B Type Natriuretic Pept 5240 pg/mL (19.9-100); Troponin I 0.013 ng/mL (0.000-0.034)
[2024-10-02] MEDS: LORazepam INJ (*CRX) 2 MG/ML VIAL 0.5 MG IV PUSH ×2 (22:13→23:01)
[2024-10-02 22:20] LABS: Reflex Lactic Acid Yes or No Add Lactic
[2024-10-02 22:22] LABS: Ammonia 11 umol/L (9-30)
[2024-10-02] MEDS: LABETALOL HCL INJ 100 MG/20 ML VIAL 20 MG IV PUSH (23:01)
[2024-10-02 23:04] VITALS: BP 183/52; PULSE 73; RESP 25; TEMP 36.6; O2SAT 93
[2024-10-02 23:08] VITALS: O2SAT 95
--- NOTE | 2024-10-02 23:24 | ECG_ITS ---
Test Date: 2024-10-02 21:01:08 Measurements Intervals [place] Rate: 93 P: 0 [place]: 0 QRS: 154 QRSD: 92 T: -15 QT: 348 QTc: 434 Interpretive Statements PROBABLY ATRIAL FIBRILLATION (SIGNIFICANT BASELINE ARTIFACT) RIGHT AXIS DEVIATION INCOMPLETE RIGHT BUNDLE BRANCH BLOCK CONSIDER ANTERIOR INFARCT, AGE INDETERMINATE BORDERLINE ST-T WAVE ABNORMALITY- INFERIOR LEADS BASELINE ARTIFACT- I, II, III, AVR, AVL,A VF, V1-V6 ABNORMAL ECG No previous ECG available for comparison Electronically Signed On 10-03-2024 09:46:59 CDT by Lenin Douglass D.O.
[2024-10-02] MEDS: SODIUM CHLORIDE 0.9% IV 1,000 ML 125 ML IV CONT (23:30)
[2024-10-02 23:36] VITALS: PULSE 60
[2024-10-03] VITALS (26 sets, daily range): BP systolic 131–181; BP diastolic 49–101; PULSE 51–95; RESP 18–30; TEMP 36.4–39.2; O2SAT 86–100; BMI 25.4
--- NOTE | 2024-10-03 | ECHO_ITS ---
Patient Info Name: Ronnie Celeste Age: 89 years : 1935 Gender: Male Ht: 68 in Wt: 167 lbs BSA: 1.92 m2 HR: 85 bpm BP: 145 / 87 mmHg Technical Quality: Good Exam Date: 10/03/2024 3:24 PM Exam Location: Echo Lab Patient Status: Inpatient Admit Date: 10/03/2024 Staff Ordering Physician: Keturah Ortega APRN Records And Information Manager: Danae Wills RDCS Attending Provider: Tripp Dutton MD Referring Physician: Jordan GAINES; Exam Type: CA echo doppler color flow Study Info Indications - Cardiomegaly - Elevated BNP Complete two-dimensional, color flow and Doppler transthoracic echocardiogram is performed. Summary 1. Complete two-dimensional, color flow and Doppler transthoracic echocardiogram is performed. 2. Left ventricular chamber dimension is normal. 3. Left ventricular systolic function is normal, estimated at 60-65%. 4. There is mild concentric increased left ventricular wall thickness. 5. The left ventricular diastolic function is grade III diastolic dysfunction. 6. E/e' 17 is elevated. 7. Right ventricular chamber dimension is mildly enlarged. 8. Right ventricular systolic function is moderately reduced and with abnormal TAPSE 1.3 cm. 9. Left atrial chamber dimension is severely enlarged. 10. Right atrial chamber dimension is severely enlarged. 11. 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 12. There is moderate aortic valve stenosis with a peak velocity of 201 cm/s, mean gradient of 11 mmHg, and aortic valve area of 1.4 cm2. 13. There is mild mitral valve regurgitation. 14. There is mild to moderate tricuspid valve regurgitation. 15. Severe pulmonary hypertension, estimated pulmonary arterial systolic pressure is 90 mmHg. 16. There is trace pulmonic regurgitation. 17. Dilated inferior vena cava with >50% collapse upon inspiration consistent with elevated right atrial pressure, 10 mmHg. Left Ventricle E/e' 17 is elevated. Left ventricular chamber dimension is normal. Left ventricular systolic function is normal, estimated at 60-65%. There is mild concentric increased left ventricular wall thickness. The left ventricular diastolic function is grade III diastolic dysfunction. Right Ventricle Right ventricular systolic function is moderately reduced and with abnormal TAPSE 1.3 cm. Right ventricular chamber dimension is mildly enlarged. Left Atria Left atrial chamber dimension is severely enlarged. Right Atria Right atrial chamber dimension is severely enlarged. Aortic Valve The aortic valve is trileaflet. 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 There is moderate aortic valve stenosis with a peak velocity of 201 cm/s, mean gradient of 11 mmHg, and aortic valve area of 1.4 cm2. There is no aortic valve regurgitation. Pulmonic Valve There is trace pulmonic regurgitation. Mitral Valve There is no mitral valve stenosis. There is mild mitral valve regurgitation. Tricuspid Valve There is mild to moderate tricuspid valve regurgitation. Severe pulmonary hypertension, estimated pulmonary arterial systolic pressure is 90 mmHg. Pericardium/Pleural There is no pericardial effusion. Inferior Vena Cava Dilated inferior vena cava with >50% collapse upon inspiration consistent with elevated right atrial pressure, 10 mmHg. Aorta The aortic root size at the sinus of Valsalva is normal. Left Ventricular Outflow Tract Name Value Normal LVOT 2D LVOT Diameter 2.1 cm LVOT Doppler LVOT Peak Gradient 2 mmHg LVOT Mean Gradient 2 mmHg LVOT VTI 18 cm LVOT VTI/AV VTI Ratio 0.4 LVOT Stroke Volume 64 ml LVOT CO 12.7 l/min LVOT CI 6.6 l/min/m2 Pulmonic Valve Name Value Normal PV Doppler PV Peak Gradient 4 mmHg Mitral Valve Name Value Normal MV Doppler MV Decel Mccreary 1,145 cm/s2 MV PHT 38 ms MV Area (PHT) 5.8 cm2 4.0-5.0 MV Diastolic Function MV E Peak Velocity 150 cm/s MV A Peak Velocity 58 cm/s MV E/A 2.6 MV Decel Time 131 ms MV Annular TDI MV E/e' (Septal) 19.9 <=8.0 MV E/e' (Lateral) 15.7 <=8.0 MV E/e' (Average) 17.8 Tricuspid Valve Name Value Normal TV Regurgitation Doppler TR Peak Velocity 448 cm/s TR Peak Gradient 80 mmHg Estimated PAP/RSVP RA Pressure 10 mmHg <=5 PA Systolic Pressure 90 mmHg <36 RV Systolic Pressure 90 mmHg <36 Aorta Name Value Normal Ascending Aorta Ao Root Diameter (MM) 3.6 cm Ao Root Diam Index (MM) 1.9 cm/m2 Aortic Valve Name Value Normal AV Doppler AV Peak Velocity 201 cm/s AV Peak Gradient 16 mmHg AV Mean Gradient 11 mmHg AV VTI 45 cm AV Area (Cont Eq VTI) 1.4 cm2 >=3.0 AV Area (Cont Eq Sheng) 1.4 cm2 AV Regurgitation 2D LVOT Area 3.5 cm2 Ventricles Name Value Normal LV Dimensions 2D/MM IVS Diastolic Thickness (2D) 1.3 cm 0.6-1.0 LVID Diastole (2D) 4.4 cm 4.2-5.8 LVIW Diastolic Thickness (2D) 1.2 cm 0.6-1.0 LVID Systole (2D) 3.0 cm 2.5-4.0 LVOT Diameter 2.1 cm LV Mass (2D Cubed) 202.60 g 88.00-224.00 LV Mass Index (2D Cubed) 106 g/m2 49-115 Relative Wall Thickness (2D) 0.54 LV Fractional Shortening/Ejection Fraction 2D/MM LV Fractional Shortening (2D) 32 % 25-43 LV EF (2D Teicholz) 60 % 52-72 LV Diastolic Volume (4C MOD) 77 ml LV EF (4C MOD) 62 % LV Diastolic Volume (2C MOD) 90 ml LV EF (2C MOD) 61 % LV Diastolic Volume (BP MOD) 85 ml 62-150 LV Diastolic Volume Index (BP MOD) 44 ml/m2 34-74 LV Systolic Volume (BP MOD) 32 ml 21-61 LV Systolic Volume Index (BP MOD) 17 ml/m2 11-31 LV EF (BP MOD) 62 % 52-72 LV Diastolic Length (4C) 7.8 cm LV Systolic Length (4C) 6.4 cm LV Stroke Volume (4C MOD) 48 ml RV Dimensions 2D/MM RVID Diastole (2D) 4.6 cm 2.5-3.5 Atria Name Value Normal LA Dimensions LA Dimension (MM) 5.0 cm 3.0-4.1 LA Volume (4C A-L) 114 ml LA Volume (BP A-L) 106 ml RA Dimensions RA Area (4C) 33.5 cm2 <=18.0 Report Signatures
[2024-10-03 00:08] LABS: Lactic Acid 1.2 mmol/L (0.7-2.0)
[2024-10-03] MEDS: LORazepam INJ (*CRX) 2 MG/ML VIAL 0.5 MG IV PUSH ×2 (00:56→11:41)
--- NOTE | 2024-10-03 01:24 | PC.NURSE ---
This patient, Ronnie Celeste, was admitted to IMU Room 204-01. Patient/family oriented to hospital policies and general routines including ID bracelet, bed and alarms, visiting hours, pain management, procedures, bathroom and other care routines, personal items, smoking policy, room service/diet, and visiting hours. Information on how to activate the Rapid Response Team has been discussed. Patient/Family are encouraged to report perceived risks to care and to ask questions if they do not understand what they are told or what they should do.
--- NOTE | 2024-10-03 01:50 | PC.NURSE ---
Call placed to , Rhianna, in regards to patient's admission and history. Voicemail left for to return call to facility.
--- NOTE | 2024-10-03 02:32 | P.HP_ITS ---
H&P: HPI History of Present Illness Date/Time: 10/03/24 02:32 Chief Complaint: 1. Loss of consciousness 2. Altered mental status Narrative: Ronnie Celeste is an 89-year-old male with a medical history significant for SDH, dyslipidemia, BPH, hypertension, COPD At home he does have a restricted range of activity, with his with the bedside stating that he does take a daily naps; hours prior to admission with the ED he was said to have gone into a deep sleep after supper. During supper he did consume 2 shots of whiskey. He laid on the couch, without evidence of cookie crumbs around his lips; attempted waking up to watch a previously selected hockey much improved abortive as he was unarousable. There were no records of fevers, chills, rigors, tonic-clonic jerking movements, seizure-like activity, flank pain or change in his bowel habits. EMS was summoned and he was brought into ED for expedited evaluation; he did not wake up and route to the ED on arrival in the ED was said to be combative confu sed, difficult to redirect, with grunting sounds and no particular meaningful words spoken. He was administered Ativan to quell his agitation and by the time I arrived at bedside he was deeply somnolent with audible snoring. Since suffering a subdural hemorrhage in 2021, he subsequently developed insomnia for which he was placed on a nightly melatonin regimen to which he has adhered to religiously. He does not smoke/chew tobacco; consumes alcohol moderately; does not consume recreational drugs. Per at bedside Work-up findings: UDS: Unremarkable UA: 6-10 WBC, no bacteria, no nitrates, no leukocyte esterase CXR: Left basilar atelectasis versus pneumonia. Cardiomegaly with possible cardiac decompensation and pulmonary CTA head and neck: 1. Normal CTA head. 2. CTA neck. Percent stenosis per NASCET criteria is 60-70% on the right side and 30-40% on the left side. 3. Absent right A1 segment. 4. The right posterior communicating artery continues as the posterior cerebral artery. 5. Tortuosity of the right carotid artery with retropharyngeal position. 6. Right pleural effusion with adjacent atelectasis. Head CT: Unremarkable Ronnie Celeste will be admitted, evaluated, and managed for altered mental status Review of Systems Review of Systems: All systems reviewed & are unremarkable except as noted in HPI and below PMFSH Past Medical History Medical History (Updated 10/03/24 @ 02:52 by Tripp Dutton MD) Subdural hematoma Peripheral arterial disease Polyp, nasal Family History Family History Mother Patient's mother is , Onset Age: 91 Father Family history of lung cancer, Onset Age: 52 Social History Social History Smoking packs per day: 1.5 Smoking cigarettes per day: 30.0 Years smoked: 10 Smoking pack-years: 15.00 Smoking status: Former smoker Tobacco type: cigarettes Smoking end date: 12/24/1964 Alcohol intake: current Drinks per week: 14 Substance use: never Substance use type: does not use Lack of Transportation: No Lack of Food: Never True Current Housing: I Have Housing Concerned About Future Housing: No Difficulty Paying Gas/Electric Bills: No Difficulty Paying for Meds: No Currently Unemployed: No Education: Bachelor's Degree Difficulty w/ Childcare or Family Care: No Living arrangements: with family Additional living arrangements comments: Spiritual care concerns: No Meds Home Medications and Allergies Home Medications ?Medication ?Instructions ?Recorded ?Confirmed ?Type triamcinolone acetonide 0.1 % 1 applic topical BID PRN Rash 07/29/22 10/03/24 Rx topical cream #453.6 grams albuterol sulfate 90 mcg/actuation See Rx Instructions .Route 12/29/23 10/03/24 Rx aerosol inhaler .COMPLEX #8.5 grams tamsulosin 0.4 mg capsule 0.4 mg PO HS 02/14/24 10/03/24 History acetaminophen 500 mg capsule 1,000 mg (2 x 500 mg) PO Q6H PRN 04/29/24 10/03/24 Rx pain #30 caps aspirin 81 mg capsule 81 mg PO DAILY #30 caps 04/29/24 10/03/24 Rx simvastatin 40 mg tablet 40 mg PO HS #90 tabs 08/07/24 10/03/24 Rx irbesartan 300 See Rx Instructions .Route 02/24/25 04/10/25 Rx mg-hydrochlorothiazide 12.5 mg .COMPLEX #90 tabs tablet Allergies Allergy/AdvReac Type Severity Reaction Status Date / Time No Known Allergies Allergy Verified 10/03/24 01:49 Vital Signs Vital Signs - 24 hr 10/02/24 20:47 10/02/24 20:49 10/02/24 20:57 Temperature 98.4 F Pulse Rate 95 92 Respiratory Rate 20 Blood Pressure 209/105 H Pulse Oximetry 94 94 Oxygen Delivery Room Air Room Air Oxygen Flow Rate 10/02/24 23:04 10/02/24 23:08 10/02/24 23:36 Temperature 98 F Pulse Rate 73 60 Respiratory Rate 25 H Blood Pressure 183/52 H Pulse Oximetry 93 95 Oxygen Delivery Nasal Cannula Oxygen Flow Rate 2 10/03/24 01:01 10/03/24 01:01 10/03/24 01:24 Temperature 98.4 F 99.8 F H Pulse Rate 92 76 Respiratory Rate 20 18 Blood Pressure 170/101 H 160/77 H Pulse Oximetry 97 95 92 Oxygen Delivery Room Air Oxygen Flow Rate 10/03/24 01:24 Temperature Pulse Rate Respiratory Rate Blood Pressure Pulse Oximetry 97 Oxygen Delivery Room Air Oxygen Flow Rate Exam Const: General: no acute distress HENMT: Ears: TM's normal bilaterally Face/Nose/Sinus: Normal nares present Eyes: General: appearance normal, both eyes and all related structures Pupils: Equal, round and reactive pupils present ([place]) Neck: Neck: supple Thyroid: thyroid normal Carotids: bruit Resp: Effort & Inspection: normal respiratory effort Cardio: Rate: regular rate Rhythm: regular rhythm GI: GI Palp: Yes Soft to palpation Urinary Catheter: Urinary Catheter: patent and draining Skin: General skin exam: normal color Neuro: Other: Unable to perform due to deep somnolence; s/p Ativan Extrem: General: normal to inspection Psych: Other: Unable to perform due to deep somnolence; s/p Ativan H&P: Results Labs Labs: Short CBC 10/02/24 Range/Units 20:15 WBC 6.6 (4.5-10.0) K/mm3 Hgb 11.7 L (14.0-18.0) g/dL Hct 36.1 L (42.0-52.0) % Plt Count 191 (150-375) k/mm3 [facility] 10/02/24 21:05 Sodium 135 L Potassium 4.8 Chloride 101 Carbon Dioxide 26 BUN 28 H Creatinine 1.45 H Glucose 138 H Calcium 8.4 Cardiac Enzymes 10/02/24 10/02/24 Range/Units 21:05 23:33 Troponin I 0.013 0.020 D (0.000-0.034) ng/mL Liver Function 10/02/24 Range/Units 21:05 Total Bilirubin 0.7 (0.2-1.3) mg/dL AST 34 (17-59) U/L ALT 23 (6-50) U/L Alkaline Phosphatase 73 (38-126) U/L Albumin 3.7 (3.5-5.1) g/dL Urine 10/02/24 Range/Units 20:22 Urine Color Yellow (Yellow) Urine Appearance Clear (Clear) Urine pH 6.5 (5.0-9.0) Ur Specific [place] 1.015 (1.001-1.035) Urine Protein 3+ H (Negative) mg/dL Urine Glucose (UA) Negative (Negative) mg/dL Assessment and Plan Assessment and plan (1) Acute encephalopathy: Code(s): G93.40 - Encephalopathy, unspecified Status: Acute (2) Essential (primary) hypertension: Code(s): I10 - Essential (primary) hypertension Status: Acute (3) Mixed hyperlipidemia: Code(s): E78.2 - Mixed hyperlipidemia Status: Acute Plan Acute and principal conditions 1. Acute encephalopathy 2. Probable deep somnolence 3. Probable Pneumonia, LLL 4. Mild UTI Rx: A. Falls; Aspiration precautions B. Ceftriaxone C. MRI brain Chronic and stable conditions 1. Hx of SDH. 2. Hypertension. 3. BPH. Prostate Ca. Miscellaneous care 1. Code status. Full 2. Nutrition. advance as tolerated 3. VTE prophylaxis. SCDs; [facility] Quality VTE Prophylaxis VTE prophylaxis: mechanical ordered and pharmacologic ordered Hospitalist MIPS Advance Care Plan I have confirmed that the patient's Advanced Care Plan is present, code status is documented, or surrogate decision maker is listed in patient medical record.: Yes Medication Reconciliation I have utilized all available resources to obtain, update and review the patients current medications (includes all prescriptions, OTC, herbals, cannabis, and nutritional supplements).: Yes The patient is not eligible for med reconciliation; the patient is in a emergent medical situation where delaying treatment would jeopardize the patients health.: Yes
[2024-10-03] MEDS: SODIUM CHLORIDE 0.9% IV 1,000 ML 100 ML IV CONT ×2 (03:00→09:45)
[2024-10-03 04:37] LABS: Basophils Absolute Auto 0.1 K/mm3 (0.0-0.1); Basophils Percent Auto 0.6 % (0.2-1.2); Eosinophils Absolute Auto 0.1 K/mm3 (0-0.3); Hematocrit 32.9 % (42.0-52.0); Hemoglobin 10.7 g/dL (14.0-18.0); Immature Granulocyte Absolute 0.04 K/mm3 (0.00-0.031); Immature Granulocyte Percent A 0.5 % (0-0.5); Lymphocytes Absolute Auto 0.63 K/mm3 (0.9-3.2); Lymphocytes Percent Auto 7.2 % (18.3-44.2); Mean Corpuscular HGB Conc 32.5 g/dl (32-36); Mean Corpuscular Hemoglobin 33.3 pg (26-34); Mean Corpuscular Volume 102.5 fl (80-100); Mean Platelet Volume 9.2 fl (7.4-10.4); Monocytes Absolute Auto 0.6 K/mm3 (0.1-0.6); Monocytes Percent Auto 6.7 % (2.6-8.5); Neutrophils Absolute Auto 7.3 K/mm3 (1.3-6.7); Platelet Count Result 172 k/mm3 (150-375); Red Blood Count 3.21 M/mm3 (4.6-6.20); Red Cell Distribution Width 12.4 % (11.5-14.5); White Blood Count 8.7 K/mm3 (4.5-10.0)
--- NOTE | 2024-10-03 05:00 | PC.NURSE ---
Patient thrashing legs and hands over bed railing. Patient snatching off gown, secured entrance monitor and oxygen tubing. Patient orientation unable to be assessed, but responds to touch and withdraws to pain. Patient has not opened his eyes since admission to unit. Call placed to Dr. Dutton and new orders given.
[2024-10-03 05:01] LABS: Alanine Aminotransferase 20 U/L (6-50); Albumin Level 3.2 g/dL (3.5-5.1); Alkaline Phosphatase 73 U/L (38-126); Anion Gap 3 mmol/L (4-12); Aspartate Amino Transferase 24 U/L (17-59); Bilirubin,Total 0.9 mg/dL (0.2-1.3); Blood Urea Nitrogen 27 mg/dL (9-20); Calcium 8.1 mg/dL (8.4-10.2); Carbon Dioxide 30 mmol/L (22-30); Chloride 104 mmol/L (98-107); Estimated CRCL calculation 32 ml/min; Estimated Glomerular Filt Rate 49; Glucose 97 mg/dL (65-110); Potassium 4.3 mmol/L (3.4-5.0); Sodium 137 mmol/L (137-145)
[2024-10-03] MEDS: OLANZapine 10 MG, WATER, STERILE FOR INJECTION 2.1 ML IM (05:34)
[2024-10-03] MEDS: DEXTROSE 50% 25 GM/50 ML SYRINGE IV PUSH (05:35)
--- NOTE | 2024-10-03 08:14 | PC.NURSE ---
Left at listed number for Rhianna. Awaiting call back to complete admission questions and to consent for MRI.
[2024-10-03] MEDS: HEPARIN SODIUM 5,000 UNITS/ML VIAL 5000 UNITS SUB-Q ×2 (09:46→20:40)
--- NOTE | 2024-10-03 10:32 | PC.NURSE ---
Received order from Dr Bazan for 1500mg keppra now and the 750mg BID starting tomorrow morning. Orders read back and verified.
[2024-10-03] MEDS: levETIRAcetam 1500MG/NACL100ML 1,500 MG/100 ML BAG 400 MG IVPB (10:46)
--- NOTE | 2024-10-03 11:04 | P.CONNEU_ITS ---
Assessment and Plan Assessment and plan (1) Altered mental status: Code(s): R41.82 - Altered mental status, unspecified Status: Acute Assessment and Plan: Loss of consciousness followed by combativeness and sleepiness does raise possibility of a seizure disorder particularly due to the fact that he has had a subdural hematoma within the past 2 years which carries a 35% risk of having a seizure within 2 years. Of course the differential diagnosis will include possibility of cardiac arrhythmia or a cerebrovascular accident. Initial CT scan and the CT angiogram head and neck did not show significant additional findings. MRI of the brain and EEG may be helpful for further investigation. Currently the patient is very sleepy however he did receive some Zyprexa after he had Ativan last night he came to the emergency room. And hence his mental status require further follow-up. (2) Subdural hematoma: Code(s): S06.5XAA - Traumatic subdural hemorrhage with loss of consciousness status unknown, initial encounter Status: Acute Assessment and Plan: As noted above he had an accidental fall in March 2023 leading to a right subdural hematoma which did not require any surgical intervention. He did have some gait instability and change mental status. He has improved thereafter (3) Chronic kidney disease, unspecified: Qualifiers: Chronic kidney disease stage: stage 3 (moderate) Chronic kidney disease stage 3 subtype: stage 3a (GFR 45-59) Qualified Code(s): N18.31 - Chronic kidney disease, stage 3a Code(s): N18.9 - Chronic kidney disease, unspecified Status: Acute (4) Gait instability: Code(s): R26.81 - Unsteadiness on feet Status: Acute Plan As discussed above MRI of the brain and EEG and follow-up of the mental status is recommended. We should also check his serum B12 and folic acid level and vitamin-D level. Consult date: 10/03/24 HPI: Ronnie Celeste is a 89 year old maleWho presented to the hospital with the and episode of loss of consciousness. Apparently was at home and went into deep sleep after supper where during supper he did continue to parts of this case. Upon awakening he was combative and thereafter sleepy. CT scan head was performed which did not show any significant abnormalities. The patient lives his . She CT angiogram of the head and neck shows 60-70% narrowing of the right internal carotid artery and 30-40% left internal carotid artery. However this finding has been noted in the past also. There is no significant large vessel occlusion in the intracranial portion of the circulation. His creatinine was 1.45. There is no prior history of stroke or seizures. The patient has had a fall and followed by hallucinations in June 2023 he was taking care of in [facility] and was seen seen by neurologist. Patient nonsmoker been independent with activities living but he does enjoy 1 or 2 alcoholic a day. Patient is currently not able to give any history since he is more less very sleepy almost semi responsive asymmetry with his mouth open. Seem to move both upper lower limbs. He did receive some Ativan and Zyprexa after he arrived in the room hospital last night. Office visit note from his for a primary care provider indicate that he has history of peripheral vascular disease and he has had instability of gait. significant history of for a fall leading to subdural hematoma in March 2023 which did not require surgery. Did not have any seizures however he was noted to be confused and have imbalance and for which she was seen by the neurologist at [facility]. Review of Systems 2 Review of Systems: ROS unobtainable: Yes unobtainable due to mental status PMFSH Past Medical History Medical History (Updated 10/03/24 @ 11:12 by Brett Bazan MD) Subdural hematoma Peripheral arterial disease Polyp, nasal Family History Family History Mother Patient's mother is , Onset Age: 91 Father Family history of lung cancer, Onset Age: 52 Social History Social History Smoking packs per day: 1 Smoking cigarettes per day: 20.0 Years smoked: 15 Smoking pack-years: 15.00 Smoking status: Former smoker Tobacco type: cigarettes Smoking end date: 12/24/1964 Alcohol intake: current Drinks per week: 14 Substance use: never Substance use type: does not use Do You Feel Safe in your Home?: No Lack of Transportation: No Lack of Food: Never True Current Housing: I Have Housing Concerned About Future Housing: No Difficulty Paying Gas/Electric Bills: No Difficulty Paying for Meds: No Currently Unemployed: No Education: Associate Degree Difficulty w/ Childcare or Family Care: No Living arrangements: with family Additional living arrangements comments: Spiritual care concerns: No Meds Home Medications and Allergies Home Medications ?Medication ?Instructions ?Recorded ?Confirmed ?Type triamcinolone acetonide 0.1 % 1 applic topical BID PRN Rash 07/29/22 10/03/24 Rx topical cream #453.6 grams albuterol sulfate 90 mcg/actuation See Rx Instructions .Route 12/29/23 10/03/24 Rx aerosol inhaler .COMPLEX #8.5 grams tamsulosin 0.4 mg capsule 0.4 mg PO HS 02/14/24 10/03/24 History acetaminophen 500 mg capsule 1,000 mg (2 x 500 mg) PO Q6H PRN 04/29/24 10/03/24 Rx pain #30 caps aspirin 81 mg capsule 81 mg PO DAILY #30 caps 04/29/24 10/03/24 Rx simvastatin 40 mg tablet 40 mg PO HS #90 tabs 08/07/24 10/03/24 Rx irbesartan 300 See Rx Instructions .Route 08/19/24 10/03/24 Rx mg-hydrochlorothiazide 12.5 mg .COMPLEX #90 tabs tablet Allergies Allergy/AdvReac Type Severity Reaction Status Date / Time No Known Allergies Allergy Verified 10/03/24 01:49 Vital Signs Vital Signs - 24 hr 10/02/24 20:47 10/02/24 20:49 10/02/24 20:57 Temperature 98.4 F Pulse Rate 95 92 Respiratory Rate 20 Blood Pressure 209/105 H Pulse Oximetry 94 94 Oxygen Delivery Room Air Room Air Oxygen Flow Rate 10/02/24 23:04 10/02/24 23:08 10/02/24 23:36 Temperature 98 F Pulse Rate 73 60 Respiratory Rate 25 H Blood Pressure 183/52 H Pulse Oximetry 93 95 Oxygen Delivery Nasal Cannula Oxygen Flow Rate 2 10/03/24 01:01 10/03/24 01:01 10/03/24 01:24 Temperature 98.4 F 99.8 F H Pulse Rate 92 76 Respiratory Rate 20 18 Blood Pressure 170/101 H 160/77 H Pulse Oximetry 97 95 92 Oxygen Delivery Room Air Oxygen Flow Rate 10/03/24 01:24 10/03/24 02:00 10/03/24 04:00 Temperature 97.5 F L Pulse Rate 60 60 Respiratory Rate 18 Blood Pressure 136/75 Pulse Oximetry 97 94 Oxygen Delivery Room Air Oxygen Flow Rate 10/03/24 04:00 10/03/24 04:00 10/03/24 05:00 Temperature Pulse Rate 55 L Respiratory Rate Blood Pressure Pulse Oximetry 92 Oxygen Delivery Room Air Nasal Cannula Oxygen Flow Rate 2 10/03/24 05:45 10/03/24 06:00 10/03/24 06:00 Temperature 98.5 F 99.0 F Pulse Rate 81 61 61 Respiratory Rate 24 H 20 Blood Pressure 159/93 H 181/62 H Pulse Oximetry 92 97 Oxygen Delivery Oxygen Flow Rate 10/03/24 06:15 10/03/24 06:15 10/03/24 06:30 Temperature 99.2 F 99.2 F 99.3 F Pulse Rate 54 L 54 L 52 L Respiratory Rate 20 20 18 Blood Pressure 157/56 H 157/56 H 153/49 H Pulse Oximetry 97 97 95 Oxygen Delivery Oxygen Flow Rate 10/03/24 06:45 10/03/24 07:25 10/03/24 07:45 Temperature 99.3 F 99.0 F 99.0 F Pulse Rate 51 L 57 L 57 L Respiratory Rate 20 22 H 22 H Blood Pressure 162/70 H 150/53 H 150/53 H Pulse Oximetry 93 92 Oxygen Delivery Oxygen Flow Rate Exam 2 Narrative: Patient does not respond to verbal commands and is seems to be very much into deep sleep 15 with mouth open. He is moving both upper and lower limbs. No involuntary movements were seen. Planters were downgoing. There is no facial asymmetry. Tongue was also midline. No nuchal rigidity. Results Labs 10/03/24 04:18 10/03/24 04:18 Labs: Short CBC 10/02/24 10/03/24 Range/Units 20:15 04:18 WBC 6.6 8.7 (4.5-10.0) K/mm3 Hgb 11.7 L 10.7 L (14.0-18.0) g/dL Hct 36.1 L 32.9 L (42.0-52.0) % Plt Count 191 172 (150-375) k/mm3 BMP 10/02/24 10/03/24 21:05 04:18 Sodium 135 L 137 Potassium 4.8 4.3 Chloride 101 104 Carbon Dioxide 26 30 BUN 28 H 27 H Creatinine 1.45 H 1.38 H Glucose 138 H 97 Calcium 8.4 8.1 L Cardiac Enzymes 10/02/24 10/02/24 Range/Units 21:05 23:33 Troponin I 0.013 0.020 D (0.000-0.034) ng/mL Liver Function 10/02/24 10/03/24 Range/Units 21:05 04:18 Total Bilirubin 0.7 0.9 (0.2-1.3) mg/dL AST 34 24 (17-59) U/L ALT 23 20 (6-50) U/L Alkaline Phosphatase 73 73 (38-126) U/L Albumin 3.7 3.2 L (3.5-5.1) g/dL Urine 10/02/24 Range/Units 20:22 Urine Color Yellow (Yellow) Urine Appearance Clear (Clear) Urine pH 6.5 (5.0-9.0) Ur Specific [place] 1.015 (1.001-1.035) Urine Protein 3+ H (Negative) mg/dL Urine Glucose (UA) Negative (Negative) mg/dL CTA brain carotid IMPRESSION: 1. Normal CTA head. 2. CTA neck. Percent stenosis per NASCET criteria is 60-70% on the right side and 30-40% on the left side. 3. Absent right A1 segment. 4. The right posterior communicating artery continues as the posterior cerebral artery. 5. Tortuosity of the right carotid artery with retropharyngeal position. 6. Right pleural effusion with adjacent atelectasis. Reviewed, dictated and finalized at location A. CT of the head without contrast. Radiation reduction technique utilized. The dose-length product was 681 mGy-cm. IMPRESSION: No acute intracranial findings. Reviewed, dictated and finalized at location A.
--- NOTE | 2024-10-03 11:36 | WPDNEUROLOGY ---
Neurology EEG Report General Information Date of Study: 10/03/24 TEST electroencephalogram DIAGNOSIS loss of consciousness history of subdural hematoma CONDITION OF RECORDING bedside according EEG NUMBER [id number] CLINICAL HISTORY loss of consciousness followed by combativeness and drowsiness. History of subdural hematoma due to an accidental fall in March 2023. EEG DESCRIPTION At the beginning of the recording the patient noted to be asleep and confused and sometimes moving around. The background activity consists of low amplitude predominantly theta activity at 5-6 hertz with an amplitude of from 10-20 microvolts. There is no significant anteroposterior gradient. Stage I or 2 sleep were not recorded. Questionable sharp wave activity was noted over the left temporal area however this appears poorly defined. IMPRESSION This is an abnormal EEG due to presence of moderate diffuse background slowing suggestive of generalized encephalopathy. Some questionable sharp activity was noted over the left temporal area however this appears poorly defined. This may raise possibility of focal interictal abnormality. Further follow-up study may be helpful
--- NOTE | 2024-10-03 16:11 | P.PNIM_ITS ---
Progress Note: A&P Assessment and Plan (1) Acute encephalopathy: Code(s): G93.40 - Encephalopathy, unspecified Status: Acute (2) Essential (primary) hypertension: Code(s): I10 - Essential (primary) hypertension Status: Acute (3) Mixed hyperlipidemia: Code(s): E78.2 - Mixed hyperlipidemia Status: Acute Plan Acute and principal conditions 1. Acute encephalopathy 2. Probable deep somnolence 3. Probable Pneumonia, LLL 4. Mild UTI Rx: A. Falls; Aspiration precautions B. Ceftriaxone C. MRI brain Neurology was consulted and recommendation to start on keppra. MRI/MRA was done. DR Bazan contacted and he reviewed mri. 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 There is also some degree of mass effect and possibility of a small hemorrhagic conversion within the infarct which can occur with such large infarct. I spoke to the hospitalist Mrs. Ortega and made her aware of the management possibilities. Since there is no large vessel occlusion noted on the CT angiogram of the head and neck thrombectomy is not an option since the hemorrhagic conversion there is no not much else we can do except for supportive care of course if the mass effect increases and patient shows any sign of herniation he may require intubation and intensive care support which is readily available at our hospital. You may discuss this with the family members and make them aware of the findings. I discussed it withh family and shelby anthonyot want any heroic measures. We will monitoring condition and it worsens, can repeat CT head to eval for bleed. They understand pt condition and possible outcome. They chose to change his code status to meds only as he would not want to be intubated or had cpr. -Woill continue IMU status, monitor neurchecks, monitor mental status -change tylenol to rectal if needed as pt is not eating or drinking -keep 0.9 NS at 100 ml/h for now - ua was collected-pending - will order blood culture Chronic and stable conditions 1. Hx of SDH. 2. Hypertension. 3. BPH. Prostate Ca. Miscellaneous care 1. Code status. Full 2. Nutrition. advance as tolerated 3. VTE prophylaxis. SCDs; [facility] Time Spent With Patient Time with patient: Greater than 35 minutes Subjective Date/time seen: 10/03/24 0815 Interval history: Ronnie Celeste is an 89-year-old male with a medical history significant for SDH, dyslipidemia, BPH, hypertension, COPD admitted for ams. Pt is undergoing eval for ams. Upon my exam, he is sleeping, eyes closed, withdraw to painful stimuli. Family at the bedside, and daughter. Discussed at details MRI results and DR Bazan recommendations. Pt is to stay in IMU for now and neuro/resp status can be monitored. If any changes in neur status, we can repeat CT scan to eval for brain bleed. However, pt family wnat code status changed to meds only as he would not wnat to rely on machine to breath and/or had cpr if something happens and his condition deteriorates. Review of Systems Review of Systems: All systems reviewed & are unremarkable except as noted in HPI and below ROS unobtainable: Yes unobtainable due to mental status Exam Const: General: no acute distress HENMT: Ears: TM's normal bilaterally Face/Nose/Sinus: Normal nares present Eyes: General: appearance normal, both eyes and all related structures Pupils: Equal, round and reactive pupils present ([place]) Neck: Neck: supple Thyroid: thyroid normal Carotids: bruit Resp: Effort & Inspection: normal respiratory effort Cardio: Rate: regular rate Rhythm: regular rhythm Urinary Catheter: Urinary Catheter: patent and draining Skin: General skin exam: normal color Neuro: Other: Unable to perform due to deep somnolence; s/p Ativan Extrem: General: normal to inspection Psych: Other: Unable to perform due to deep somnolence; s/p Ativan Objective Data Vital Signs Vital Signs: Vital Signs - 24 hr 10/02/24 20:47 10/02/24 20:49 10/02/24 20:57 Temperature 98.4 F Pulse Rate 95 92 Respiratory Rate 20 Blood Pressure 209/105 H Pulse Oximetry 94 94 Oxygen Delivery Room Air Room Air Oxygen Flow Rate 10/02/24 23:04 10/02/24 23:08 10/02/24 23:36 Temperature 98 F Pulse Rate 73 60 Respiratory Rate 25 H Blood Pressure 183/52 H Pulse Oximetry 93 95 Oxygen Delivery Nasal Cannula Oxygen Flow Rate 2 10/03/24 01:01 10/03/24 01:01 10/03/24 01:24 Temperature 98.4 F 99.8 F H Pulse Rate 92 76 Respiratory Rate 20 18 Blood Pressure 170/101 H 160/77 H Pulse Oximetry 97 95 92 Oxygen Delivery Room Air Oxygen Flow Rate 10/03/24 01:24 10/03/24 02:00 10/03/24 04:00 Temperature 97.5 F L Pulse Rate 60 60 Respiratory Rate 18 Blood Pressure 136/75 Pulse Oximetry 97 94 Oxygen Delivery Room Air Oxygen Flow Rate 10/03/24 04:00 10/03/24 04:00 10/03/24 05:00 Temperature Pulse Rate 55 L Respiratory Rate Blood Pressure Pulse Oximetry 92 Oxygen Delivery Room Air Nasal Cannula Oxygen Flow Rate 2 10/03/24 05:45 10/03/24 06:00 10/03/24 06:00 Temperature 98.5 F 99.0 F Pulse Rate 81 61 61 Respiratory Rate 24 H 20 Blood Pressure 159/93 H 181/62 H Pulse Oximetry 92 97 Oxygen Delivery Oxygen Flow Rate 10/03/24 06:15 10/03/24 06:15 10/03/24 06:30 Temperature 99.2 F 99.2 F 99.3 F Pulse Rate 54 L 54 L 52 L Respiratory Rate 20 20 18 Blood Pressure 157/56 H 157/56 H 153/49 H Pulse Oximetry 97 97 95 Oxygen Delivery Oxygen Flow Rate 10/03/24 06:45 10/03/24 07:25 10/03/24 07:45 Temperature 99.3 F 99.0 F 99.0 F Pulse Rate 51 L 57 L 57 L Respiratory Rate 20 22 H 22 H Blood Pressure 162/70 H 150/53 H 150/53 H Pulse Oximetry 93 92 Oxygen Delivery Oxygen Flow Rate 10/03/24 08:00 10/03/24 08:00 10/03/24 11:45 Temperature 100.5 F H Pulse Rate 58 L 85 Respiratory Rate 26 H Blood Pressure 145/87 H Pulse Oximetry 92 Oxygen Delivery Room Air Oxygen Flow Rate 10/03/24 12:00 10/03/24 12:00 10/03/24 16:00 Temperature 101.1 F H Pulse Rate 74 89 Respiratory Rate 30 H Blood Pressure 131/94 H Pulse Oximetry 94 86 L Oxygen Delivery Room Air Oxygen Flow Rate Intake/Output Intake/Output: Intake & Output 09/30/24 10/01/24 10/02/24 10/03/24 23:59 23:59 23:59 23:59 Intake Total 1100.0 Output Total 1000 Balance 100.0 Meds/Results Medications: Active Medications Generic Name Dose Route Start Last Admin Trade Name Freq PRN Reason Stop Dose Admin Acetaminophen 650 mg 10/03/24 02:30 Acetaminophen 325 Mg Tablet PO Q4H PRN Mild Pain (1-3) or Fever Heparin Sodium (Porcine) 5,000 units 10/03/24 09:00 10/03/24 09:46 Heparin Sodium 5,000 Units/Ml Vial SUB-Q 5,000 units Q12HR BRODY Administration Hydralazine HCl 10 mg 10/02/24 23:03 Hydralazine Hcl 20 Mg/Ml Vial IV PUSH Q8H PRN Blood Pressure - High Sodium Chloride 1,000 mls @ 100 mls/hr 10/03/24 02:30 10/03/24 03:00 Normal Saline Iv IV CONT 100 mls/hr .Q10H BRODY Administration Ceftriaxone Sodium 1 gm in 50 mls @ 100 mls/hr 10/03/24 03:00 10/03/24 04:18 Rocephin 1 Gm/Ns 50 Ml IVPB Infused QHS BRODY Infusion Levetiracetam 750 mg/ Dextrose 107.5 mls @ 430 mls/hr 10/04/24 09:00 IVPB Q12HR BRODY Perflutren Lipid Microsphere 0 ml 10/03/24 11:10 Perflutren Lipid Microspheres 1.5 Ml Vial Diluted To 10 Ml Total Volume IV PUSH 10/06/24 11:10 ONCE PRN adequate visualization Protocol Prochlorperazine Edisylate 10 mg 10/03/24 02:30 Prochlorperazine Edisylate 10 Mg/2 Ml Vial IV PUSH Q6H PRN Nausea And Vomiting Radiology Results: ITS Impressions Head CT 10/02/24 20:55 IMPRESSION: No acute intracranial findings. Chest X-Ray 10/02/24 21:42 IMPRESSION: Left basilar atelectasis versus pneumonia. Cardiomegaly with possible cardiac decompensation and pulmonary Head/Neck CTA 10/02/24 22:02 IMPRESSION: 1. Normal CTA head. 2. CTA neck. Percent stenosis per NASCET criteria is 60-70% on the right side and 30-40% on the left side. 3. Absent right A1 segment. 4. The right posterior communicating artery continues as the posterior cerebral artery. 5. Tortuosity of the right carotid artery with retropharyngeal position. 6. Right pleural effusion with adjacent atelectasis. 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 There is mild mass effect with mild relative left lateral ventricular compression, but no significant midline shift at this time. Case discussed with nurse practitioner Jordan at the time of this reading. Brain MRA 10/03/24 13:26 Impression: No definite large vessel occlusion, though exam is significantly degraded by motion artifact. Labs Labs: Laboratory Results - last 24 hr 10/02/24 10/02/24 10/02/24 20:11 20:15 20:22 WBC 6.6 RBC 3.52 L Hgb 11.7 L Hct 36.1 L MCV 102.6 H MCH 33.2 MCHC 32.4 RDW 12.5 Plt Count 191 MPV 10.0 Immature Gran % (Auto) 0.3 Neut % (Auto) 76.9 H Lymph % (Auto) 12.3 L Woods % (Auto) 6.7 Eos % (Auto) 2.9 Baso % (Auto) 0.9 Lymph # (Auto) 0.81 L Woods # (Auto) 0.4 Eos # (Auto) 0.2 Baso # (Auto) 0.1 Abs Immat Gran (auto) 0.02 Absolute Neuts (auto) 5.1 Absolute Nucleated RBC 0.000 Nucleated RBC % 0.0 % Immature Plt Fraction 3.1 PT 13.6 INR 1.0 APTT 23.0 Puncture Site ABG pH ABG pCO2 ABG pO2 ABG PO2/FiO2 Ratio ABG HCO3 ABG O2 Saturation ABG O2 Content ABG Base Excess A-a Gradient Oxyhemoglobin Total Hemoglobin O2 Delivery Device O2 Liters/Min FiO2 Sodium Potassium Chloride Carbon Dioxide Anion Gap BUN Creatinine Estim Creat Clear Calc Estimated GFR Glucose POC Capillary Glucose 164 H Lactic Acid 2.1 H Calcium Magnesium Total Bilirubin AST ALT Alkaline Phosphatase Ammonia Troponin I NT-Pro-B Natriuret Pep Total Protein Albumin Urine Color Yellow Urine Appearance Clear Urine pH 6.5 Ur Specific Gile 1.015 Urine Protein 3+ H Urine Glucose (UA) Negative Urine Ketones Negative Ur Blood (Man) 2+ H Urine Nitrate Negative Urine Bilirubin Negative Urine Urobilinogen 1.0 Add Ur Microanalysis Reviewed Leukocyte Esterase Rfl Negative Urine RBC 21-50 H Urine WBC 6-10 H Ur Squamous Epith Cells None seen Urine Bacteria None seen Urine Casts 0-2 Urine Opiates Screen Negative Urine Methadone Screen Negative Ur Barbiturates Screen Negative Ur Phencyclidine Scrn Negative Ur Amphetamine Screen Negative U Benzodiazepines Scrn Negative Urine Cocaine Screen Negative U Cannabinoids Screen Negative Ethyl Alcohol 18 Influenza A (RT-PCR) Influenza B (RT-PCR) RSV (RT-PCR) SARS-CoV-2 RNA (RT-PCR) 10/02/24 10/02/24 10/02/24 20:45 20:52 21:05 WBC RBC Hgb Hct MCV MCH MCHC RDW Plt Count MPV Immature Gran % (Auto) Neut % (Auto) Lymph % (Auto) Woods % (Auto) Eos % (Auto) Baso % (Auto) Lymph # (Auto) Woods # (Auto) Eos # (Auto) Baso # (Auto) Abs Immat Gran (auto) Absolute Neuts (auto) Absolute Nucleated RBC Nucleated RBC % % Immature Plt Fraction PT INR APTT Puncture Site Right brachial ABG pH 7.382 ABG pCO2 38.8 ABG pO2 64.5 L ABG PO2/FiO2 Ratio 3.07 ABG HCO3 22.5 ABG O2 Saturation 92.4 L ABG O2 Content 15.9 L ABG Base Excess -2.2 A-a Gradient 38.8 Oxyhemoglobin 92.0 Total Hemoglobin 12.3 O2 Delivery Device Room air O2 Liters/Min Not Reportable FiO2 21 Sodium 135 L Potassium 4.8 Chloride 101 Carbon Dioxide 26 Anion Gap 8 BUN 28 H Creatinine 1.45 H Estim Creat Clear Calc Not Reportable Estimated GFR 46 L Glucose 138 H POC Capillary Glucose Lactic Acid Calcium 8.4 Magnesium 1.7 Total Bilirubin 0.7 AST 34 ALT 23 Alkaline Phosphatase 73 Ammonia Troponin I 0.013 NT-Pro-B Natriuret Pep 5240 H Total Protein 7.0 Albumin 3.7 Urine Color Urine Appearance Urine pH Ur Specific Gile Urine Protein Urine Glucose (UA) Urine Ketones Ur Blood (Man) Urine Nitrate Urine Bilirubin Urine Urobilinogen Add Ur Microanalysis Leukocyte Esterase Rfl Urine RBC Urine WBC Ur Squamous Epith Cells Urine Bacteria Urine Casts Urine Opiates Screen Urine Methadone Screen Ur Barbiturates Screen Ur Phencyclidine Scrn Ur Amphetamine Screen U Benzodiazepines Scrn Urine Cocaine Screen U Cannabinoids Screen Ethyl Alcohol Influenza A (RT-PCR) Negative Influenza B (RT-PCR) Negative RSV (RT-PCR) Negative SARS-CoV-2 RNA (RT-PCR) Negative 10/02/24 10/02/24 10/02/24 22:08 22:59 23:33 WBC RBC Hgb Hct MCV MCH MCHC RDW Plt Count MPV Immature Gran % (Auto) Neut % (Auto) Lymph % (Auto) Woods % (Auto) Eos % (Auto) Baso % (Auto) Lymph # (Auto) Woods # (Auto) Eos # (Auto) Baso # (Auto) Abs Immat Gran (auto) Absolute Neuts (auto) Absolute Nucleated RBC Nucleated RBC % % Immature Plt Fraction PT INR APTT Puncture Site ABG pH ABG pCO2 ABG pO2 ABG PO2/FiO2 Ratio ABG HCO3 ABG O2 Saturation ABG O2 Content ABG Base Excess A-a Gradient Oxyhemoglobin Total Hemoglobin O2 Delivery Device O2 Liters/Min FiO2 Sodium Potassium Chloride Carbon Dioxide Anion Gap BUN Creatinine Estim Creat Clear Calc Estimated GFR Glucose POC Capillary Glucose Lactic Acid 1.2 Calcium Magnesium Total Bilirubin AST ALT Alkaline Phosphatase Ammonia 11 Troponin I 0.020 D NT-Pro-B Natriuret Pep Total Protein Albumin Urine Color Urine Appearance Urine pH Ur Specific Gile Urine Protein Urine Glucose (UA) Urine Ketones Ur Blood (Man) Urine Nitrate Urine Bilirubin Urine Urobilinogen Add Ur Microanalysis Leukocyte Esterase Rfl Urine RBC Urine WBC Ur Squamous Epith Cells Urine Bacteria Urine Casts Urine Opiates Screen Urine Methadone Screen Ur Barbiturates Screen Ur Phencyclidine Scrn Ur Amphetamine Screen U Benzodiazepines Scrn Urine Cocaine Screen U Cannabinoids Screen Ethyl Alcohol Influenza A (RT-PCR) Influenza B (RT-PCR) RSV (RT-PCR) SARS-CoV-2 RNA (RT-PCR) 10/03/24 04:18 WBC 8.7 RBC 3.21 L Hgb 10.7 L Hct 32.9 L MCV 102.5 H MCH 33.3 MCHC 32.5 RDW 12.4 Plt Count 172 MPV 9.2 Immature Gran % (Auto) 0.5 Neut % (Auto) 84.0 H Lymph % (Auto) 7.2 L Woods % (Auto) 6.7 Eos % (Auto) 1.0 Baso % (Auto) 0.6 Lymph # (Auto) 0.63 L Woods # (Auto) 0.6 Eos # (Auto) 0.1 Baso # (Auto) 0.1 Abs Immat Gran (auto) 0.04 H Absolute Neuts (auto) 7.3 H Absolute Nucleated RBC 0.000 Nucleated RBC % 0.0 % Immature Plt Fraction PT INR APTT Puncture Site ABG pH ABG pCO2 ABG pO2 ABG PO2/FiO2 Ratio ABG HCO3 ABG O2 Saturation ABG O2 Content ABG Base Excess A-a Gradient Oxyhemoglobin Total Hemoglobin O2 Delivery Device O2 Liters/Min FiO2 Sodium 137 Potassium 4.3 Chloride 104 Carbon Dioxide 30 Anion Gap 3 L BUN 27 H Creatinine 1.38 H Estim Creat Clear Calc 32 Estimated GFR 49 L Glucose 97 POC Capillary Glucose Lactic Acid Calcium 8.1 L Magnesium Total Bilirubin 0.9 AST 24 ALT 20 Alkaline Phosphatase 73 Ammonia Troponin I NT-Pro-B Natriuret Pep Total Protein 6.0 L Albumin 3.2 L Urine Color Urine Appearance Urine pH Ur Specific Gile Urine Protein Urine Glucose (UA) Urine Ketones Ur Blood (Man) Urine Nitrate Urine Bilirubin Urine Urobilinogen Add Ur Microanalysis Leukocyte Esterase Rfl Urine RBC Urine WBC Ur Squamous Epith Cells Urine Bacteria Urine Casts Urine Opiates Screen Urine Methadone Screen Ur Barbiturates Screen Ur Phencyclidine Scrn Ur Amphetamine Screen U Benzodiazepines Scrn Urine Cocaine Screen U Cannabinoids Screen Ethyl Alcohol Influenza A (RT-PCR) Influenza B (RT-PCR) RSV (RT-PCR) SARS-CoV-2 RNA (RT-PCR) Quality VTE Prophylaxis VTE prophylaxis: mechanical ordered and pharmacologic ordered
[2024-10-03] MEDS: ACETAMINOPHEN 650 MG SUPPOSITORY RECTAL (16:37)
--- NOTE | 2024-10-03 18:39 | PC.NURSE ---
Left VM for Kamla to call back. PT temp is 102.5. Tylenol previously given, ice packs applied.
[2024-10-04] VITALS (21 sets, daily range): BP systolic 131–165; BP diastolic 40–101; PULSE 43–83; RESP 14–29; TEMP 37.1–39.4; O2SAT 96–100; BMI 26.5
[2024-10-04 05:20] LABS: Basophils Percent Auto 0.4 % (0.2-1.2); Eosinophils Percent Auto 0.3 % (0-4.4); Hematocrit 36.3 % (42.0-52.0); Hemoglobin 11.6 g/dL (14.0-18.0); Immature Granulocyte Absolute 0.03 K/mm3 (0.00-0.031); Immature Granulocyte Percent A 0.3 % (0-0.5); Lymphocytes Absolute Auto 0.76 K/mm3 (0.9-3.2); Lymphocytes Percent Auto 7.5 % (18.3-44.2); Mean Corpuscular Hemoglobin 33.1 pg (26-34); Mean Corpuscular Volume 103.7 fl (80-100); Mean Platelet Volume 9.5 fl (7.4-10.4); Monocytes Absolute Auto 0.8 K/mm3 (0.1-0.6); Monocytes Percent Auto 7.5 % (2.6-8.5); Neutrophils Absolute Auto 8.5 K/mm3 (1.3-6.7); Platelet Count Result 182 k/mm3 (150-375); Red Cell Distribution Width 12.4 % (11.5-14.5); White Blood Count 10.2 K/mm3 (4.5-10.0)
[2024-10-04 05:35] LABS: Alanine Aminotransferase 22 U/L (6-50); Albumin Level 3.5 g/dL (3.5-5.1); Alkaline Phosphatase 77 U/L (38-126); Anion Gap 4 mmol/L (4-12); Aspartate Amino Transferase 33 U/L (17-59); Bilirubin,Total 1.4 mg/dL (0.2-1.3); Blood Urea Nitrogen 29 mg/dL (9-20); Calcium 8.4 mg/dL (8.4-10.2); Carbon Dioxide 31 mmol/L (22-30); Chloride 103 mmol/L (98-107); Estimated CRCL calculation 31 ml/min; Estimated Glomerular Filt Rate 47; Glucose 88 mg/dL (65-110); Potassium 4.6 mmol/L (3.4-5.0); Sodium 138 mmol/L (137-145)
[2024-10-04] MEDS: SODIUM CHLORIDE 0.9% IV 1,000 ML 100 ML IV CONT ×2 (05:42→14:29)
[2024-10-04] MEDS: levETIRAcetam IV 750 MG in DEXTROSE 5% 100 ML 430 MG IVPB ×2 (08:51→22:30)
[2024-10-04] MEDS: HEPARIN SODIUM 5,000 UNITS/ML VIAL 5000 UNITS SUB-Q ×2 (08:51→22:30)
--- NOTE | 2024-10-04 13:05 | PC.NURSE ---
On 10/04/24, the student, [Arlette Ruano], provided care and completed [facility] documentation on this patient. I have reviewed the student's documentation and agree with the findings.
--- NOTE | 2024-10-04 15:31 | P.PNIM_ITS ---
Progress Note: A&P Assessment and Plan (1) Acute encephalopathy: Code(s): G93.40 - Encephalopathy, unspecified Status: Acute (2) Essential (primary) hypertension: Code(s): I10 - Essential (primary) hypertension Status: Acute (3) Mixed hyperlipidemia: Code(s): E78.2 - Mixed hyperlipidemia Status: Acute Plan Acute and principal conditions 1. Acute encephalopathy 2. Probable deep somnolence 3. Probable Pneumonia, LLL 4. Mild UTI Rx: A. Falls; Aspiration precautions B. Ceftriaxone C. MRI brain Neurology was consulted and recommendation to start on keppra. MRI/MRA was done. DR Bazan contacted and he reviewed mri. 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 There is also some degree of mass effect and possibility of a small hemorrhagic conversion within the infarct which can occur with such large infarct. I spoke to the hospitalist Mrs. Ortega and made her aware of the management possibilities. Since there is no large vessel occlusion noted on the CT angiogram of the head and neck thrombectomy is not an option since the hemorrhagic conversion there is no not much else we can do except for supportive care of course if the mass effect increases and patient shows any sign of herniation he may require intubation and intensive care support which is readily available at our hospital. You may discuss this with the family members and make them aware of the findings. I discussed it with family and they donot want any heroic measures. We will monitoring condition and it worsens, can repeat CT head to eval for bleed. They understand pt condition and possible outcome. They chose to change his code status to meds only as he would not want to be intubated or had cpr. -Woll continue IMU status, monitor neurchecks, monitor mental status -change tylenol to rectal if needed as pt is not eating or drinking -keep 0.9 NS at 100 ml/h for now - ua was collected-pending - will order blood culture 10/[address] head for am 412 for re eval. continue mittens for now for safely. avoid sedative meds. Chronic and stable conditions 1. Hx of SDH. 2. Hypertension. 3. BPH. Prostate Ca. Miscellaneous care 1. Code status. Full 2. Nutrition. advance as tolerated 3. VTE prophylaxis. SCDs; BRODY Time Spent With Patient Time with patient: Greater than 35 minutes Subjective Date/time seen: 10/04/24 15:31 Interval history: Ronnie Celeste is an 89-year-old male with a medical history significant for SDH, dyslipidemia, BPH, hypertension, COPD admitted for ams. Pt is undergoing eval for ams. Upon my exam, he is sleeping, eyes closed, withdraw to painful stimuli. Family at the bedside, and daughter. Discussed at details MRI results and DR Bazan recommendations. Pt is to stay in IMU for now and neuro/resp status can be monitored. If any changes in neuro status, we can repeat CT scan to eval for brain bleed. However, pt family wnat code status changed to meds only as he would not wnat to rely on machine to breath and/or had cpr if something happens and his condition deteriorates. 10/04- pt is seen and examined. pt is calm and neurologically stable. Son at the bedside, updated. Review of Systems Review of Systems: All systems reviewed & are unremarkable except as noted in HPI and below ROS unobtainable: Yes unobtainable due to mental status Exam Const: General: no acute distress HENMT: Ears: TM's normal bilaterally Face/Nose/Sinus: Normal nares present Eyes: General: appearance normal, both eyes and all related structures Pupils: Equal, round and reactive pupils present (Pinpoint) Neck: Neck: supple Thyroid: thyroid normal Carotids: bruit Resp: Effort & Inspection: normal respiratory effort Cardio: Rate: regular rate Rhythm: regular rhythm GI: GI Palp: Yes Soft to palpation Urinary Catheter: Urinary Catheter: patent and draining Skin: General skin exam: normal color Neuro: Cranial nerves: Yes Equal, round and reactive pupils present (Pinpoint) Other: Unable to perform due to deep somnolence; s/p Ativan Extrem: General: normal to inspection Psych: Other: Unable to perform due to deep somnolence; s/p Ativan Objective Data Vital Signs Vital Signs: Vital Signs - 24 hr 10/03/24 16:00 10/03/24 16:00 10/03/24 16:00 Temperature 101.1 F H Pulse Rate 89 95 Respiratory Rate 30 H Blood Pressure 131/94 H Pulse Oximetry 86 L 97 Oxygen Delivery Nasal Cannula Oxygen Flow Rate 2 10/03/24 16:37 10/03/24 18:00 10/03/24 18:26 Temperature 101.0 F H 102.5 F H Pulse Rate 73 Respiratory Rate Blood Pressure Pulse Oximetry Oxygen Delivery Oxygen Flow Rate 10/03/24 19:02 10/03/24 20:00 10/03/24 20:25 Temperature 101.9 F H Pulse Rate 60 52 L 60 Respiratory Rate 20 20 Blood Pressure 136/49 L Pulse Oximetry 97 97 Oxygen Delivery Nasal Cannula Oxygen Flow Rate 2 10/03/24 20:25 10/03/24 22:00 10/03/24 23:35 Temperature 100.9 F H Pulse Rate 54 L 55 L Respiratory Rate 19 Blood Pressure 171/66 H Pulse Oximetry 97 100 Oxygen Delivery Nasal Cannula Oxygen Flow Rate 2 10/04/24 00:00 10/04/24 00:30 10/04/24 02:00 Temperature Pulse Rate 43 L 55 L 43 L Respiratory Rate 19 Blood Pressure Pulse Oximetry 100 Oxygen Delivery Nasal Cannula Oxygen Flow Rate 2 10/04/24 03:30 10/04/24 04:00 10/04/24 04:00 Temperature 99.8 F H Pulse Rate 46 L 57 L 49 L Respiratory Rate 14 17 Blood Pressure 165/40 H Pulse Oximetry 100 100 Oxygen Delivery Nasal Cannula Oxygen Flow Rate 2 10/04/24 06:00 10/04/24 08:00 10/04/24 08:00 Temperature 100.5 F H Pulse Rate 81 74 69 Respiratory Rate 29 H Blood Pressure 131/101 H Pulse Oximetry 96 Oxygen Delivery Oxygen Flow Rate 10/04/24 08:45 10/04/24 09:00 10/04/24 10:00 Temperature Pulse Rate 61 Respiratory Rate Blood Pressure Pulse Oximetry 99 96 Oxygen Delivery Nasal Cannula Nasal Cannula Oxygen Flow Rate 2 2 10/04/24 11:53 10/04/24 12:05 10/04/24 12:05 Temperature 98.7 F Pulse Rate 71 71 55 L Respiratory Rate 25 H Blood Pressure 158/78 H Pulse Oximetry 99 99 Oxygen Delivery Nasal Cannula Oxygen Flow Rate 2 10/04/24 14:00 Temperature Pulse Rate 50 L Respiratory Rate Blood Pressure Pulse Oximetry Oxygen Delivery Oxygen Flow Rate Intake/Output Intake/Output: Intake & Output 10/01/24 10/02/24 10/03/24 10/04/24 23:59 23:59 23:59 23:59 Intake Total 1100.0 1985.8 Output Total 1700 400 Balance -600.0 1585.8 Meds/Results Medications: Active Medications Generic Name Dose Route Start Last Admin Trade Name Freq PRN Reason Stop Dose Admin Acetaminophen 650 mg 10/03/24 02:30 Acetaminophen 325 Mg Tablet PO Q4H PRN Mild Pain (1-3) or Fever Acetaminophen 650 mg 10/03/24 16:11 10/03/24 16:37 Acetaminophen 650 Mg Suppository RECTAL 650 mg Q6H PRN Administration Mild Pain (1-3) or Fever Heparin Sodium (Porcine) 5,000 units 10/03/24 09:00 10/04/24 08:51 Heparin Sodium 5,000 Units/Ml Vial SUB-Q 5,000 units Q12HR BRODY Administration Hydralazine HCl 10 mg 10/02/24 23:03 Hydralazine Hcl 20 Mg/Ml Vial IV PUSH Q8H PRN Blood Pressure - High Sodium Chloride 1,000 mls @ 100 mls/hr 10/03/24 02:30 10/04/24 14:29 Normal Saline Iv IV CONT 100 mls/hr .Q10H BRODY Administration Ceftriaxone Sodium 1 gm in 50 mls @ 100 mls/hr 10/03/24 03:00 10/03/24 20:40 Rocephin 1 Gm/Ns 50 Ml IVPB 100 mls/hr QHS BRODY Administration Levetiracetam 750 mg/ Dextrose 107.5 mls @ 430 mls/hr 10/04/24 09:00 10/04/24 09:30 IVPB Infused Q12HR BRODY Infusion Perflutren Lipid Microsphere 0 ml 10/03/24 11:10 Perflutren Lipid Microspheres 1.5 Ml Vial Diluted To 10 Ml Total Volume IV PUSH 10/06/24 11:10 ONCE PRN adequate visualization Protocol Prochlorperazine Edisylate 10 mg 10/03/24 02:30 Prochlorperazine Edisylate 10 Mg/2 Ml Vial IV PUSH Q6H PRN Nausea And Vomiting Radiology Results: ITS Impressions Head CT 10/02/24 20:55 IMPRESSION: No acute intracranial findings. Chest X-Ray 10/02/24 21:42 IMPRESSION: Left basilar atelectasis versus pneumonia. Cardiomegaly with possible cardiac decompensation and pulmonary Head/Neck CTA 10/02/24 22:02 IMPRESSION: 1. Normal CTA head. 2. CTA neck. Percent stenosis per NASCET criteria is 60-70% on the right side and 30-40% on the left side. 3. Absent right A1 segment. 4. The right posterior communicating artery continues as the posterior cerebral artery. 5. Tortuosity of the right carotid artery with retropharyngeal position. 6. Right pleural effusion with adjacent atelectasis. 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 There is mild mass effect with mild relative left lateral ventricular compression, but no significant midline shift at this time. Case discussed with nurse practitioner Jordan at the time of this reading. Brain MRA 10/03/24 13:26 Impression: No definite large vessel occlusion, though exam is significantly degraded by motion artifact. Labs Labs: Laboratory Results - last 24 hr 10/04/24 04:49 WBC 10.2 H RBC 3.50 L Hgb 11.6 L Hct 36.3 L MCV 103.7 H MCH 33.1 MCHC 32.0 RDW 12.4 Plt Count 182 MPV 9.5 Immature Gran % (Auto) 0.3 Neut % (Auto) 84.0 H Lymph % (Auto) 7.5 L [place] % (Auto) 7.5 Eos % (Auto) 0.3 Baso % (Auto) 0.4 Lymph # (Auto) 0.76 L [place] # (Auto) 0.8 H Eos # (Auto) 0.0 Baso # (Auto) 0.0 Abs Immat Gran (auto) 0.03 Absolute Neuts (auto) 8.5 H Absolute Nucleated RBC 0.000 Nucleated RBC % 0.0 Sodium 138 Potassium 4.6 Chloride 103 Carbon Dioxide 31 H Anion Gap 4 BUN 29 H Creatinine 1.41 H Estim Creat Clear Calc 31 Estimated GFR 47 L Glucose 88 Calcium 8.4 Total Bilirubin 1.4 H AST 33 ALT 22 Alkaline Phosphatase 77 Total Protein 6.0 L Albumin 3.5 Quality VTE Prophylaxis VTE prophylaxis: mechanical ordered and pharmacologic ordered
[2024-10-04] MEDS: ACETAMINOPHEN 650 MG SUPPOSITORY RECTAL (22:56)
[2024-10-05] VITALS (22 sets, daily range): BP systolic 129–225; BP diastolic 38–118; PULSE 35–94; RESP 18–32; TEMP 36.7–37.1; O2SAT 93–100
[2024-10-05] MEDS: SODIUM CHLORIDE 0.9% IV 1,000 ML 100 ML IV CONT (02:32)
[2024-10-05 05:01] LABS: Basophils Percent Auto 0.3 % (0.2-1.2); Hematocrit 36.7 % (42.0-52.0); Hemoglobin 11.9 g/dL (14.0-18.0); Immature Granulocyte Absolute 0.08 K/mm3 (0.00-0.031); Immature Granulocyte Percent A 0.6 % (0-0.5); Lymphocytes Absolute Auto 0.62 K/mm3 (0.9-3.2); Lymphocytes Percent Auto 4.8 % (18.3-44.2); Mean Corpuscular HGB Conc 32.4 g/dl (32-36); Mean Corpuscular Hemoglobin 33.3 pg (26-34); Mean Corpuscular Volume 102.8 fl (80-100); Mean Platelet Volume 9.2 fl (7.4-10.4); Monocytes Absolute Auto 0.9 K/mm3 (0.1-0.6); Monocytes Percent Auto 7.3 % (2.6-8.5); Neutrophils Absolute Auto 11.2 K/mm3 (1.3-6.7); Platelet Count Result 161 k/mm3 (150-375); Red Blood Count 3.57 M/mm3 (4.6-6.20); Red Cell Distribution Width 12.1 % (11.5-14.5); White Blood Count 12.9 K/mm3 (4.5-10.0)
[2024-10-05 05:15] LABS: Alanine Aminotransferase 21 U/L (6-50); Albumin Level 3.3 g/dL (3.5-5.1); Alkaline Phosphatase 62 U/L (38-126); Anion Gap 8 mmol/L (4-12); Aspartate Amino Transferase 36 U/L (17-59); Bilirubin,Total 1.3 mg/dL (0.2-1.3); Blood Urea Nitrogen 36 mg/dL (9-20); Carbon Dioxide 23 mmol/L (22-30); Chloride 105 mmol/L (98-107); Estimated CRCL calculation 35 ml/min; Estimated Glomerular Filt Rate 55; Glucose 97 mg/dL (65-110); Potassium 4.1 mmol/L (3.4-5.0); Sodium 136 mmol/L (137-145)
[2024-10-05 09:36] LABS: MRSA (PCR) NOT DETECTED (NOT DETECTE)
[2024-10-05] MEDS: levETIRAcetam IV 750 MG in DEXTROSE 5% 100 ML 430 MG IVPB ×2 (09:54→20:34)
--- NOTE | 2024-10-05 10:05 | PM.IMPN ---
Progress Note: A&P Assessment and Plan (1) Acute encephalopathy: Code(s): G93.40 - Encephalopathy, unspecified Status: Acute (2) Essential (primary) hypertension: Code(s): I10 - Essential (primary) hypertension Status: Acute (3) Mixed hyperlipidemia: Code(s): E78.2 - Mixed hyperlipidemia Status: Acute Plan Acute and principal conditions 1. Acute encephalopathy 2. Probable deep somnolence 3. Probable Pneumonia, LLL 4. Mild UTI Rx: A. Falls; Aspiration precautions B. Ceftriaxone C. MRI brain Neurology was consulted and recommendation to start on keppra. MRI/MRA was done. DR Bzaan contacted and he reviewed mri. 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 There is also some degree of mass effect and possibility of a small hemorrhagic conversion within the infarct which can occur with such large infarct. I spoke to the hospitalist Mrs. Ortega and made her aware of the management possibilities. Since there is no large vessel occlusion noted on the CT angiogram of the head and neck thrombectomy is not an option since the hemorrhagic conversion there is no not much else we can do except for supportive care of course if the mass effect increases and patient shows any sign of herniation he may require intubation and intensive care support which is readily available at our hospital. You may discuss this with the family members and make them aware of the findings. I discussed it with family and they donot want any heroic measures. We will monitoring condition and it worsens, can repeat CT head to eval for bleed. They understand pt condition and possible outcome. They chose to change his code status to meds only as he would not want to be intubated or had cpr. -Woll continue IMU status, monitor neurochecks, monitor mental status -change tylenol to rectal if needed as pt is not eating or drinking -keep 0.9 NS at 100 ml/h for now - ua was collected-pending - will order blood culture 10/[address] head for am 412 for re eval. continue mittens for now for safely. avoid sedative meds. 10/05- ct head ordered. pt is calm, not restless but still not alert. wbc is trending up. Chest xray repeated, will escalate antibiotics to cefepime MPRESSION: 6.7 cm acute intraparenchymal hemorrhage in the left frontoparietal region with intraventricular extension, and causing significant mass effect and [id number] midline shift of 3 mm, as detailed above. The findings appears slightly progressed since 10/03/2024. discussed with Dr Gutierrez, Dr evans. Family is still on board with no acute interventions-so will continue to monitor. will stop iV for now per DR Evans recommendations Chronic and stable conditions 1. Hx of SDH. 2. Hypertension. 3. BPH. Prostate Ca. Miscellaneous care 1. Code status. Full 2. Nutrition. advance as tolerated 3. VTE prophylaxis. SCDs; BRODY Time Spent With Patient Time with patient: 25 - 35 minutes Subjective Date/time seen: 10/05/24 10:05 Interval history: Ronnie Celeste is an 89-year-old male with a medical history significant for SDH, dyslipidemia, BPH, hypertension, COPD admitted for ams. Pt is undergoing eval for ams. Upon my exam, he is sleeping, eyes closed, withdraw to painful stimuli. Family at the bedside, and daughter. Discussed at details MRI results and DR Bazan recommendations. Pt is to stay in IMU for now and neuro/resp status can be monitored. If any changes in neuro status, we can repeat CT scan to eval for brain bleed. However, pt family wnat code status changed to meds only as he would not wnat to rely on machine to breath and/or had cpr if something happens and his condition deteriorates. 10/04- pt is seen and examined. pt is calm and neurologically stable. Son at the bedside, updated. 10/05- pt is a stable- no worsening of neurological symptoms. Coarse, requires suctioning. Still intermittent fevers. Review of Systems Review of Systems: All systems reviewed & are unremarkable except as noted in HPI and below ROS unobtainable: Yes unobtainable due to mental status Exam Const: General: no acute distress HENMT: Ears: TM's normal bilaterally Face/Nose/Sinus: Normal nares present Eyes: General: appearance normal, both eyes and all related structures Pupils: Equal, round and reactive pupils present (Pinpoint) Neck: Neck: supple Thyroid: thyroid normal Carotids: bruit Resp: Effort & Inspection: normal respiratory effort Cardio: Rate: regular rate Rhythm: regular rhythm Urinary Catheter: Urinary Catheter: patent and draining Skin: General skin exam: normal color Neuro: Cranial nerves: Yes Equal, round and reactive pupils present (Pinpoint) Other: Unable to perform due to deep somnolence; s/p Ativan Extrem: General: normal to inspection Psych: Other: Unable to perform due to deep somnolence; s/p Ativan Objective Data Vital Signs Vital Signs: Vital Signs - 24 hr 10/04/24 11:53 10/04/24 12:05 10/04/24 12:05 Temperature 98.7 F Pulse Rate 71 71 55 L Respiratory Rate 25 H Blood Pressure 158/78 H Pulse Oximetry 99 99 Oxygen Delivery Nasal Cannula Oxygen Flow Rate 2 10/04/24 14:00 10/04/24 16:00 10/04/24 16:00 Temperature 100.8 F H Pulse Rate 50 L 69 69 Respiratory Rate 27 H 24 H Blood Pressure 143/76 H Pulse Oximetry 100 100 Oxygen Delivery Nasal Cannula Oxygen Flow Rate 2 10/04/24 16:00 10/04/24 18:00 10/04/24 19:17 Temperature 101.5 F H Pulse Rate 65 70 73 Respiratory Rate 18 Blood Pressure 136/91 H Pulse Oximetry 100 Oxygen Delivery Oxygen Flow Rate 10/04/24 20:00 10/04/24 20:00 10/04/24 22:00 Temperature Pulse Rate 73 63 61 Respiratory Rate 18 Blood Pressure Pulse Oximetry 100 Oxygen Delivery Nasal Cannula Oxygen Flow Rate 2 10/04/24 22:56 10/04/24 23:05 10/04/24 23:56 Temperature 103 F H 103.0 F H 101.1 F H Pulse Rate 83 Respiratory Rate 20 Blood Pressure 153/89 H Pulse Oximetry 97 Oxygen Delivery Oxygen Flow Rate 10/05/24 00:00 10/05/24 00:15 10/05/24 02:00 Temperature Pulse Rate 93 83 63 Respiratory Rate 20 Blood Pressure Pulse Oximetry 97 Oxygen Delivery Nasal Cannula Oxygen Flow Rate 2 10/05/24 03:24 10/05/24 03:30 10/05/24 04:00 Temperature 98.8 F Pulse Rate 81 81 66 Respiratory Rate 18 18 Blood Pressure 129/63 Pulse Oximetry 100 100 Oxygen Delivery Nasal Cannula Oxygen Flow Rate 2 10/05/24 06:00 10/05/24 08:00 10/05/24 08:01 Temperature 98.0 F Pulse Rate 88 35 L Respiratory Rate 24 H Blood Pressure 143/38 H 187/88 H Pulse Oximetry 100 Oxygen Delivery Oxygen Flow Rate 10/05/24 08:21 Temperature Pulse Rate Respiratory Rate Blood Pressure Pulse Oximetry 100 Oxygen Delivery Nasal Cannula Oxygen Flow Rate 1 Intake/Output Intake/Output: Intake & Output 10/02/24 10/03/24 10/04/24 10/05/24 23:59 23:59 23:59 23:59 Intake Total 1150.0 2143.3 1000 Output Total 1700 900 500 Balance -550.0 1243.3 500 Meds/Results Medications: Active Medications Generic Name Dose Route Start Last Admin Trade Name Freq PRN Reason Stop Dose Admin Acetaminophen 650 mg 10/03/24 02:30 Acetaminophen 325 Mg Tablet PO Q4H PRN Mild Pain (1-3) or Fever Acetaminophen 650 mg 10/03/24 16:11 10/04/24 22:56 Acetaminophen 650 Mg Suppository RECTAL 650 mg Q6H PRN Administration Mild Pain (1-3) or Fever Heparin Sodium (Porcine) 5,000 units 10/03/24 09:00 10/04/24 22:30 Heparin Sodium 5,000 Units/Ml Vial SUB-Q 5,000 units Q12HR BRODY Administration Hydralazine HCl 10 mg 10/02/24 23:03 Hydralazine Hcl 20 Mg/Ml Vial IV PUSH Q8H PRN Blood Pressure - High Sodium Chloride 1,000 mls @ 100 mls/hr 10/03/24 02:30 10/05/24 02:32 Normal Saline Iv IV CONT 100 mls/hr .Q10H BRODY Administration Levetiracetam 750 mg/ Dextrose 107.5 mls @ 430 mls/hr 10/04/24 09:00 10/05/24 09:54 IVPB 430 mls/hr Q12HR BRODY Administration Cefepime HCl 2 gm in 50 mls @ 100 mls/hr 10/05/24 09:00 Maxipime 2 Gm/Ns 50 Ml IVPB Q12H BRODY Perflutren Lipid Microsphere 0 ml 10/03/24 11:10 Perflutren Lipid Microspheres 1.5 Ml Vial Diluted To 10 Ml Total Volume IV PUSH 10/06/24 11:10 ONCE PRN adequate visualization Protocol Prochlorperazine Edisylate 10 mg 10/03/24 02:30 Prochlorperazine Edisylate 10 Mg/2 Ml Vial IV PUSH Q6H PRN Nausea And Vomiting Radiology Results: ITS Impressions Head/Neck CTA 10/02/24 22:02 IMPRESSION: 1. Normal CTA head. 2. CTA neck. Percent stenosis per NASCET criteria is 60-70% on the right side and 30-40% on the left side. 3. Absent right A1 segment. 4. The right posterior communicating artery continues as the posterior cerebral artery. 5. Tortuosity of the right carotid artery with retropharyngeal position. 6. Right pleural effusion with adjacent atelectasis. 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 There is mild mass effect with mild relative left lateral ventricular compression, but no significant midline shift at this time. Case discussed with nurse practitioner Jordan at the time of this reading. Brain MRA 10/03/24 13:26 Impression: No definite large vessel occlusion, though exam is significantly degraded by motion artifact. Chest X-Ray 10/05/24 08:01 IMPRESSION: Airspace opacity in the right lung base may represent pneumonia in appropriate clinical settings. Clinical correlation is recommended. Short interval follow-up chest radiograph is recommended after appropriate clinical therapy. Labs Labs: Laboratory Results - last 24 hr 10/05/24 10/05/24 04:54 08:20 WBC 12.9 H RBC 3.57 L Hgb 11.9 L Hct 36.7 L MCV 102.8 H MCH 33.3 MCHC 32.4 RDW 12.1 Plt Count 161 MPV 9.2 Immature Gran % (Auto) 0.6 H Neut % (Auto) 87.0 H Lymph % (Auto) 4.8 L [place] % (Auto) 7.3 Eos % (Auto) 0.0 Baso % (Auto) 0.3 Lymph # (Auto) 0.62 L [place] # (Auto) 0.9 H Eos # (Auto) 0.0 Baso # (Auto) 0.0 Abs Immat Gran (auto) 0.08 H Absolute Neuts (auto) 11.2 H Absolute Nucleated RBC 0.000 Nucleated RBC % 0.0 Sodium 136 L Potassium 4.1 Chloride 105 Carbon Dioxide 23 Anion Gap 8 BUN 36 H Creatinine 1.23 Estim Creat Clear Calc 35 Estimated GFR 55 L Glucose 97 Calcium 8.0 L Total Bilirubin 1.3 AST 36 ALT 21 Alkaline Phosphatase 62 Total Protein 6.0 L Albumin 3.3 L Nasal MRSA (PCR) Not detected Quality VTE Prophylaxis VTE prophylaxis: mechanical ordered and pharmacologic ordered
[2024-10-05] MEDS: CEFEPIME 2 GM/NS 50 ML 2 GM/50 ML BAG IVPB ×2 (10:23→20:54)
[2024-10-05] MEDS: hydrALAZINE HCL 20 MG/ML VIAL 10 MG IV PUSH (16:00)
[2024-10-06] VITALS (17 sets, daily range): BP systolic 153–184; BP diastolic 55–105; PULSE 50–88; RESP 22–32; TEMP 36.5–37.1; O2SAT 94–100
[2024-10-06 05:08] LABS: Basophils Percent Auto 0.1 % (0.2-1.2); Hematocrit 37.5 % (42.0-52.0); Hemoglobin 12.1 g/dL (14.0-18.0); Immature Granulocyte Absolute 0.11 K/mm3 (0.00-0.031); Immature Granulocyte Percent A 0.7 % (0-0.5); Lymphocytes Absolute Auto 0.45 K/mm3 (0.9-3.2); Lymphocytes Percent Auto 2.9 % (18.3-44.2); Mean Corpuscular HGB Conc 32.3 g/dl (32-36); Mean Corpuscular Hemoglobin 33.2 pg (26-34); Mean Corpuscular Volume 102.7 fl (80-100); Mean Platelet Volume 9.4 fl (7.4-10.4); Monocytes Absolute Auto 1.2 K/mm3 (0.1-0.6); Monocytes Percent Auto 7.8 % (2.6-8.5); Neutrophils Absolute Auto 13.6 K/mm3 (1.3-6.7); Neutrophils Percent Auto 88.5 % (45.5-73.1); Platelet Count Result 163 k/mm3 (150-375); Red Blood Count 3.65 M/mm3 (4.6-6.20); Red Cell Distribution Width 12.1 % (11.5-14.5); White Blood Count 15.3 K/mm3 (4.5-10.0)
[2024-10-06 05:24] LABS: Alanine Aminotransferase 23 U/L (6-50); Albumin Level 3.2 g/dL (3.5-5.1); Alkaline Phosphatase 70 U/L (38-126); Anion Gap 7 mmol/L (4-12); Aspartate Amino Transferase 39 U/L (17-59); Bilirubin,Total 1.2 mg/dL (0.2-1.3); Blood Urea Nitrogen 41 mg/dL (9-20); Calcium 8.3 mg/dL (8.4-10.2); Carbon Dioxide 26 mmol/L (22-30); Chloride 104 mmol/L (98-107); Estimated CRCL calculation 35 ml/min; Estimated Glomerular Filt Rate 56; Glucose 119 mg/dL (65-110); Potassium 3.9 mmol/L (3.4-5.0); Sodium 137 mmol/L (137-145)
[2024-10-06] MEDS: levETIRAcetam IV 750 MG in DEXTROSE 5% 100 ML 430 MG IVPB ×2 (09:16→22:17)
[2024-10-06] MEDS: CEFEPIME 2 GM/NS 50 ML 2 GM/50 ML BAG IVPB ×2 (09:16→21:52)
[2024-10-06] MEDS: dexAMETHasone SOD PHOS INJ 4 MG/ML VIAL IV PUSH ×2 (11:43→17:34)
--- NOTE | 2024-10-06 14:11 | P.PNIM_ITS ---
Progress Note: A&P Assessment and Plan (1) Acute encephalopathy: Code(s): G93.40 - Encephalopathy, unspecified Status: Acute (2) Essential (primary) hypertension: Code(s): I10 - Essential (primary) hypertension Status: Acute (3) Mixed hyperlipidemia: Code(s): E78.2 - Mixed hyperlipidemia Status: Acute (4) Pneumonia: Code(s): J18.9 - Pneumonia, unspecified organism Status: Acute Plan Acute and principal conditions 1. Acute encephalopathy 2. Probable deep somnolence 3. Probable Pneumonia, LLL 4. Mild UTI Rx: A. Falls; Aspiration precautions B. Ceftriaxone C. MRI brain Neurology was consulted and recommendation to start on keppra. MRI/MRA was done. DR Bazan contacted and he reviewed mri. 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 There is also some degree of mass effect and possibility of a small hemorrhagic conversion within the infarct which can occur with such large infarct. I spoke to the hospitalist Mrs. Ortega and made her aware of the management possibilities. Since there is no large vessel occlusion noted on the CT angiogram of the head and neck thrombectomy is not an option since the hemorrhagic conversion there is no not much else we can do except for supportive care of course if the mass effect increases and patient shows any sign of herniation he may require intubation and intensive care support which is readily available at our hospital. You may discuss this with the family members and make them aware of the findings. I discussed it with family and they do not want any heroic measures. We will monitoring condition and it worsens, can repeat CT head to eval for bleed. They understand pt condition and possible outcome. They chose to change his code status to meds only as he would not want to be intubated or had cpr. -Will continue IMU status, monitor neurochecks, monitor mental status -change tylenol to rectal if needed as pt is not eating or drinking -keep 0.9 NS at 100 ml/h for now - ua was collected-pending - will order blood culture 10/[address] head for am 412 for re eval. continue mittens for now for safely. avoid sedative meds. 10/05- ct head ordered. pt is calm, not restless but still not alert. wbc is trending up. Chest xray repeated, will escalate antibiotics to cefepime IMPRESSION: 6.7 cm acute intraparenchymal hemorrhage in the left frontoparietal region with intraventricular extension, and causing significant mass effect and [id number] midline shift of 3 mm, as detailed above. The findings appears slightly progressed since 10/03/2024. discussed with Dr Gutierrez, Dr evans. Family is still on board with no acute interventions-so will continue to monitor. will stop IV for now per DR Evans recommendations 10/06 will add decadron IV. Neurosurgery consult for recommendation. Family at the bedside, wanting to proceed with comfort measures/hospice. Discussion with daughter and two sons-all in agreement. - will continue with current treatment for now Chronic and stable conditions 1. Hx of SDH. 2. Hypertension. 3. BPH. Prostate Ca. Miscellaneous care 1. Code status. Full 2. Nutrition. advance as tolerated 3. VTE prophylaxis. SCDs; BRODY Time Spent With Patient Time with patient: Greater than 35 minutes Subjective Date/time seen: 10/06/24 14:11 Interval history: Ronnie Celeste is an 89-year-old male with a medical history significant for SDH, dyslipidemia, BPH, hypertension, COPD admitted for ams. Pt is undergoing eval for ams. Upon my exam, he is sleeping, eyes closed, withdraw to painful stimuli. Family at the bedside, and daughter. Discussed at details MRI results and DR Bazan recommendations. Pt is to stay in IMU for now and neuro/resp status can be monitored. If any kyle nges in neuro status, we can repeat CT scan to eval for brain bleed. However, pt family wnat code status changed to meds only as he would not wnat to rely on machine to breath and/or had cpr if something happens and his condition deteriorates. 10/04- pt is seen and examined. pt is calm and neurologically stable. Son at the bedside, updated. 10/05- pt is a stable- no worsening of neurological symptoms. Coarse, requires suctioning. Still intermittent fevers. called and updated. 10/06 pt is more calm today, on o2. discussed plan of care with family. Family want to proceed with comfort measures/hospice. will contact care coordination. Review of Systems Review of Systems: All systems reviewed & are unremarkable except as noted in HPI and below ROS unobtainable: Yes unobtainable due to mental status Exam Const: General: no acute distress HENMT: Ears: TM's normal bilaterally Face/Nose/Sinus: Normal nares present Eyes: General: appearance normal, both eyes and all related structures Pupils: Equal, round and reactive pupils present (Pinpoint) Neck: Neck: supple Thyroid: thyroid normal Carotids: bruit Resp: Effort & Inspection: normal respiratory effort Cardio: Rate: regular rate Rhythm: regular rhythm Urinary Catheter: Urinary Catheter: patent and draining Skin: General skin exam: normal color Neuro: Cranial nerves: Yes Equal, round and reactive pupils present (Pinpoint) Other: Unable to perform due to deep somnolence; s/p Ativan Extrem: General: normal to inspection Psych: Other: Unable to perform due to deep somnolence; s/p Ativan Objective Data Vital Signs Vital Signs: Vital Signs - 24 hr 10/05/24 15:44 10/05/24 15:44 10/05/24 16:00 Temperature 98.4 F Pulse Rate 83 Respiratory Rate 32 H Blood Pressure 222/85 H 225/95 H Pulse Oximetry 93 96 Oxygen Delivery Room Air Oxygen Flow Rate 10/05/24 16:00 10/05/24 17:02 10/05/24 18:00 Temperature Pulse Rate 86 93 Respiratory Rate Blood Pressure 180/76 H Pulse Oximetry Oxygen Delivery Oxygen Flow Rate 10/05/24 19:40 10/05/24 20:00 10/05/24 20:25 Temperature 98.4 F Pulse Rate 94 92 94 Respiratory Rate 22 H 22 H Blood Pressure 176/75 H Pulse Oximetry 98 98 Oxygen Delivery Nasal Cannula Oxygen Flow Rate 2 10/05/24 22:00 10/06/24 00:00 10/06/24 00:00 Temperature 97.7 F Pulse Rate 87 88 87 Respiratory Rate 22 H Blood Pressure 167/101 H Pulse Oximetry 97 Oxygen Delivery Oxygen Flow Rate 10/06/24 00:05 10/06/24 01:40 10/06/24 03:30 Temperature Pulse Rate 88 71 79 Respiratory Rate 22 H 28 H Blood Pressure Pulse Oximetry 97 98 Oxygen Delivery Nasal Cannula Nasal Cannula Oxygen Flow Rate 2 2 10/06/24 03:32 10/06/24 04:00 10/06/24 05:59 Temperature 98.3 F Pulse Rate 79 77 78 Respiratory Rate 28 H Blood Pressure 153/88 H Pulse Oximetry 98 Oxygen Delivery Oxygen Flow Rate 10/06/24 07:48 10/06/24 08:00 10/06/24 09:03 Temperature 98.3 F Pulse Rate 84 69 Respiratory Rate 32 H Blood Pressure 170/105 H Pulse Oximetry 96 94 Oxygen Delivery Nasal Cannula Oxygen Flow Rate 2 10/06/24 10:00 10/06/24 11:35 10/06/24 12:00 Temperature 98.8 F Pulse Rate 52 L 66 50 L Respiratory Rate 24 H Blood Pressure 174/55 H Pulse Oximetry 100 Oxygen Delivery Oxygen Flow Rate Intake/Output Intake/Output: Intake & Output 10/03/24 10/04/24 10/05/24 10/06/24 23:59 23:59 23:59 23:59 Intake Total 1150.0 2143.3 2303.0 0 Output Total 3495 670 4596 375 Balance -550.0 1243.3 853.0 -375 Meds/Results Medications: Active Medications Generic Name Dose Route Start Last Admin Trade Name Freq PRN Reason Stop Dose Admin Acetaminophen 650 mg 10/03/24 02:30 Acetaminophen 325 Mg Tablet PO Q4H PRN Mild Pain (1-3) or Fever Acetaminophen 650 mg 10/03/24 16:11 10/04/24 22:56 Acetaminophen 650 Mg Suppository RECTAL 650 mg Q6H PRN Administration Mild Pain (1-3) or Fever Dexamethasone Sodium Phosphate 4 mg 10/06/24 12:00 10/06/24 11:43 Dexamethasone Sod Phos Inj 4 Mg/Ml Vial IV PUSH 4 mg Q6HR BRODY Administration Heparin Sodium (Porcine) 5,000 units 10/03/24 09:00 10/05/24 10:09 Heparin Sodium 5,000 Units/Ml Vial SUB-Q Not Given Q12HR BRODY Hydralazine HCl 10 mg 10/02/24 23:03 10/05/24 16:00 Hydralazine Hcl 20 Mg/Ml Vial IV PUSH 10 mg Q8H PRN Administration Blood Pressure - High Levetiracetam 750 mg/ Dextrose 107.5 mls @ 430 mls/hr 10/04/24 09:00 10/06/24 09:16 IVPB 430 mls/hr Q12HR BRODY Administration Cefepime HCl 2 gm in 50 mls @ 100 mls/hr 10/05/24 09:00 10/06/24 09:16 Maxipime 2 Gm/Ns 50 Ml IVPB 100 mls/hr Q12H BRODY Administration Prochlorperazine Edisylate 10 mg 10/03/24 02:30 Prochlorperazine Edisylate 10 Mg/2 Ml Vial IV PUSH Q6H PRN Nausea And Vomiting Radiology Results: ITS Impressions Head/Neck CTA 10/02/24 22:02 IMPRESSION: 1. Normal CTA head. 2. CTA neck. Percent stenosis per NASCET criteria is 60-70% on the right side and 30-40% on the left side. 3. Absent right A1 segment. 4. The right posterior communicating artery continues as the posterior cerebral artery. 5. Tortuosity of the right carotid artery with retropharyngeal position. 6. Right pleural effusion with adjacent atelectasis. 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 There is mild mass effect with mild relative left lateral ventricular compression, but no significant midline shift at this time. Case discussed with nurse practitioner Jordan at the time of this reading. Brain MRA 10/03/24 13:26 Impression: No definite large vessel occlusion, though exam is significantly degraded by motion artifact. Chest X-Ray 10/05/24 08:01 IMPRESSION: Airspace opacity in the right lung base may represent pneumonia in appropriate clinical settings. Clinical correlation is recommended. Short interval follow-up chest radiograph is recommended after appropriate clinical therapy. Head CT 10/05/24 11:47 IMPRESSION: 6.7 cm acute intraparenchymal hemorrhage in the left frontoparietal region with intraventricular extension, and causing significant mass effect and [id number] midline shift of 3 mm, as detailed above. The findings appears slightly progressed since 10/03/2024. Labs Labs: Laboratory Results - last 24 hr 10/06/24 05:01 WBC 15.3 H RBC 3.65 L Hgb 12.1 L Hct 37.5 L MCV 102.7 H MCH 33.2 MCHC 32.3 RDW 12.1 Plt Count 163 MPV 9.4 Immature Gran % (Auto) 0.7 H Neut % (Auto) 88.5 H Lymph % (Auto) 2.9 L [place] % (Auto) 7.8 Eos % (Auto) 0.0 Baso % (Auto) 0.1 L Lymph # (Auto) 0.45 L [place] # (Auto) 1.2 H Eos # (Auto) 0.0 Baso # (Auto) 0.0 Abs Immat Gran (auto) 0.11 H Absolute Neuts (auto) 13.6 H Absolute Nucleated RBC 0.000 Nucleated RBC % 0.0 Sodium 137 Potassium 3.9 Chloride 104 Carbon Dioxide 26 Anion Gap 7 BUN 41 H Creatinine 1.22 Estim Creat Clear Calc 35 Estimated GFR 56 L Glucose 119 H Calcium 8.3 L Total Bilirubin 1.2 AST 39 ALT 23 Alkaline Phosphatase 70 Total Protein 6.0 L Albumin 3.2 L Quality VTE Prophylaxis VTE prophylaxis: mechanical ordered and pharmacologic ordered
--- NOTE | 2024-10-06 16:46 | PC.NURSE ---
Report called to Madie.
--- NOTE | 2024-10-06 17:00 | PC.NURSE ---
This patient, Ronnie Celeste, was received from [facility] on 10/06/24 at 1700. Patient/family oriented to unit policies and routines.
--- NOTE | 2024-10-06 19:16 | P.HP_ITS ---
H&P: HPI History of Present Illness Date/Time: 10/06/24 19:16 Chief Complaint: Uncontrolled dyspnea Narrative: This 89-year-old gentleman presented to the emergency department on October 02 due to choking and altered mental status while eating a cookie. He was brought the emergency department where initial evaluation with CT scan was unremarkable CT of the head neck were unremarkable. 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 Follow-up chest x-ray showed right lower lobe infiltrate. October 04 follow-up CT brain showed progression of intraparenchymal hemorrhage with mass effect. On October 06 because of his advanced age comorbidities and poor prognosis family opted for comfort care only with inpatient hospice service. Review of Systems Review of Systems: ROS unobtainable: Yes unobtainable due to medical condition PMFSH Past Medical History Medical History Subdural hematoma Peripheral arterial disease Polyp, nasal Family History Family History Mother Patient's mother is , Onset Age: 91 Father Family history of lung cancer, Onset Age: 52 Social History Social History Smoking packs per day: 1 Smoking cigarettes per day: 20.0 Years smoked: 15 Smoking pack-years: 15.00 Smoking status: Former smoker Tobacco type: cigarettes Smoking end date: 12/24/1964 Alcohol intake: current Drinks per week: 14 Substance use: never Substance use type: does not use Do You Feel Safe in your Home?: Yes Lack of Transportation: No Lack of Food: Never True Current Housing: I Have Housing Concerned About Future Housing: No Difficulty Paying Gas/Electric Bills: No Difficulty Paying for Meds: No Currently Unemployed: No Education: Associate Degree Difficulty w/ Childcare or Family Care: No Living arrangements: with family Additional living arrangements comments: Spiritual care concerns: No Meds Home Medications and Allergies Home Medications ?Medication ?Instructions ?Recorded ?Confirmed ?Type triamcinolone acetonide 0.1 % 1 applic topical BID PRN Rash 07/29/22 10/03/24 Rx topical cream #453.6 grams albuterol sulfate 90 mcg/actuation See Rx Instructions .Route 12/29/23 10/03/24 Rx aerosol inhaler .COMPLEX #8.5 grams tamsulosin 0.4 mg capsule 0.4 mg PO HS 02/14/24 10/03/24 History acetaminophen 500 mg capsule 1,000 mg (2 x 500 mg) PO Q6H PRN 04/29/24 10/03/24 Rx pain #30 caps aspirin 81 mg capsule 81 mg PO DAILY #30 caps 04/29/24 10/03/24 Rx simvastatin 40 mg tablet 40 mg PO HS #90 tabs 08/07/24 10/03/24 Rx irbesartan 300 See Rx Instructions .Route 08/19/24 10/03/24 Rx mg-hydrochlorothiazide 12.5 mg .COMPLEX #90 tabs tablet Allergies Allergy/AdvReac Type Severity Reaction Status Date / Time No Known Allergies Allergy Verified 10/03/24 01:49 Vital Signs Vital Signs - 24 hr 10/05/24 19:40 10/05/24 20:00 10/05/24 20:25 Temperature 98.4 F Pulse Rate 94 92 94 Respiratory Rate 22 H 22 H Blood Pressure 176/75 H Pulse Oximetry 98 98 Oxygen Delivery Nasal Cannula Oxygen Flow Rate 2 10/05/24 22:00 10/06/24 00:00 10/06/24 00:00 Temperature 97.7 F Pulse Rate 87 88 87 Respiratory Rate 22 H Blood Pressure 167/101 H Pulse Oximetry 97 Oxygen Delivery Oxygen Flow Rate 10/06/24 00:05 10/06/24 01:40 10/06/24 03:30 Temperature Pulse Rate 88 71 79 Respiratory Rate 22 H 28 H Blood Pressure Pulse Oximetry 97 98 Oxygen Delivery Nasal Cannula Nasal Cannula Oxygen Flow Rate 2 2 10/06/24 03:32 10/06/24 04:00 10/06/24 05:59 Temperature 98.3 F Pulse Rate 79 77 78 Respiratory Rate 28 H Blood Pressure 153/88 H Pulse Oximetry 98 Oxygen Delivery Oxygen Flow Rate 10/06/24 07:48 10/06/24 08:00 10/06/24 09:03 Temperature 98.3 F Pulse Rate 84 69 Respiratory Rate 32 H Blood Pressure 170/105 H Pulse Oximetry 96 94 Oxygen Delivery Nasal Cannula Oxygen Flow Rate 2 10/06/24 10:00 10/06/24 11:35 10/06/24 12:00 Temperature 98.8 F Pulse Rate 52 L 66 50 L Respiratory Rate 24 H Blood Pressure 174/55 H Pulse Oximetry 100 Oxygen Delivery Oxygen Flow Rate 10/06/24 14:00 10/06/24 15:47 Temperature 98.5 F Pulse Rate 64 64 Respiratory Rate 28 H Blood Pressure 160/72 H Pulse Oximetry 96 Oxygen Delivery Oxygen Flow Rate Exam Narrative: HEENT: Pharyngeal mucosa pink and intact NECK: No JVD CHEST: Coarse breath sounds.. Normal effort HEART: NL S1/S2, regular, soft systolic ejection murmur right upper sternal border ABDOMEN: BS hypoactive, soft, nontender, no mass, no bruits EXTREMITIES: No edema NEUROLOGIC: CN with mild right facial droop MUSCULOSKELETAL: No gross deformities the visual inspection PSYCH: Unresponsive to verbal or tactile stimuli H&P: Results Labs Labs: Short CBC 10/06/24 Range/Units 05:01 WBC 15.3 H (4.5-10.0) K/mm3 Hgb 12.1 L (14.0-18.0) g/dL Hct 37.5 L (42.0-52.0) % Plt Count 163 (150-375) k/mm3 BMP 10/06/24 05:01 Sodium 137 Potassium 3.9 Chloride 104 Carbon Dioxide 26 BUN 41 H Creatinine 1.22 Glucose 119 H Calcium 8.3 L Liver Function 10/06/24 Range/Units 05:01 Total Bilirubin 1.2 (0.2-1.3) mg/dL AST 39 (17-59) U/L ALT 23 (6-50) U/L Alkaline Phosphatase 70 (38-126) U/L Albumin 3.2 L (3.5-5.1) g/dL Assessment and Plan Assessment and plan (1) Hospice care: Code(s): Z51.5 - Encounter for palliative care Status: Acute Assessment and Plan: * Meet inpatient hospice criteria due to requiring continuous IV morphine for control of dyspnea * P.r.n. palliative regimen ordered (2) Acute respiratory failure with hypoxia: Code(s): J96.01 - Acute respiratory failure with hypoxia Status: Acute (3) Pneumonia: Code(s): J18.9 - Pneumonia, unspecified organism Status: Acute (4) Subdural hematoma: Code(s): S06.5XAA - Traumatic subdural hemorrhage with loss of consciousness status unknown, initial encounter Status: Acute (5) Post concussive encephalopathy: Code(s): F07.81 - Postconcussional syndrome Status: Acute (6) Chronic kidney disease, unspecified: Qualifiers: Chronic kidney disease stage: stage 3 (moderate) Chronic kidney disease stage 3 subtype: stage 3a (GFR 45-59) Qualified Code(s): N18.31 - Chronic kidney disease, stage 3a Code(s): N18.9 - Chronic kidney disease, unspecified Status: Acute (7) Peripheral arterial disease: Code(s): I73.9 - Peripheral vascular disease, unspecified Status: Acute (8) Essential (primary) hypertension: Code(s): I10 - Essential (primary) hypertension Status: Acute
[2024-10-07] MEDS: dexAMETHasone SOD PHOS INJ 4 MG/ML VIAL IV PUSH ×2 (00:14→05:33)
[2024-10-07 05:50] LABS: Basophils Percent Auto 0.1 % (0.2-1.2); Hematocrit 38.6 % (42.0-52.0); Hemoglobin 12.5 g/dL (14.0-18.0); Immature Granulocyte Absolute 0.05 K/mm3 (0.00-0.031); Immature Granulocyte Percent A 0.4 % (0-0.5); Lymphocytes Absolute Auto 0.15 K/mm3 (0.9-3.2); Lymphocytes Percent Auto 1.3 % (18.3-44.2); Mean Corpuscular HGB Conc 32.4 g/dl (32-36); Mean Corpuscular Volume 101.8 fl (80-100); Mean Platelet Volume 9.8 fl (7.4-10.4); Monocytes Absolute Auto 0.2 K/mm3 (0.1-0.6); Monocytes Percent Auto 1.8 % (2.6-8.5); Neutrophils Absolute Auto 10.8 K/mm3 (1.3-6.7); Neutrophils Percent Auto 96.4 % (45.5-73.1); Platelet Count Result 175 k/mm3 (150-375); Red Blood Count 3.79 M/mm3 (4.6-6.20); White Blood Count 11.2 K/mm3 (4.5-10.0)
[2024-10-07 06:09] LABS: Alanine Aminotransferase 24 U/L (6-50); Albumin Level 3.2 g/dL (3.5-5.1); Alkaline Phosphatase 56 U/L (38-126); Anion Gap 7 mmol/L (4-12); Aspartate Amino Transferase 36 U/L (17-59); Blood Urea Nitrogen 53 mg/dL (9-20); Calcium 8.4 mg/dL (8.4-10.2); Carbon Dioxide 27 mmol/L (22-30); Chloride 105 mmol/L (98-107); Estimated CRCL calculation 35 ml/min; Estimated Glomerular Filt Rate 55; Glucose 131 mg/dL (65-110); Potassium 4.5 mmol/L (3.4-5.0); Sodium 139 mmol/L (137-145)
--- NOTE | 2024-10-07 09:31 | PM.DS ---
DS: Admitting Diagnosis Discharge Date 10/07/24 Admitting Diagnosis ams DS: Discharge Diagnosis Discharge Diagnosis (1) Acute respiratory failure with hypoxia: Code(s): J96.01 - Acute respiratory failure with hypoxia Status: Acute (2) Pneumonia: Code(s): J18.9 - Pneumonia, unspecified organism Status: Acute (3) Subdural hematoma: Code(s): S06.5XAA - Traumatic subdural hemorrhage with loss of consciousness status unknown, initial encounter Status: Acute (4) Post concussive encephalopathy: Code(s): F07.81 - Postconcussional syndrome Status: Acute (5) Chronic kidney disease, unspecified: Qualifiers: Chronic kidney disease stage: stage 3 (moderate) Chronic kidney disease stage 3 subtype: stage 3a (GFR 45-59) Qualified Code(s): N18.31 - Chronic kidney disease, stage 3a Code(s): N18.9 - Chronic kidney disease, unspecified Status: Acute (6) Peripheral arterial disease: Code(s): I73.9 - Peripheral vascular disease, unspecified Status: Acute (7) Essential (primary) hypertension: Code(s): I10 - Essential (primary) hypertension Status: Acute DS: Summary Hospital Course Hospital Course: Ronnie Celeste is an 89-year-old male with a medical history significant for SDH, dyslipidemia, BPH, hypertension, COPD admitted for ams. Pt was undergoing eval for ams. He was at home watching hockey game, possobly had choking episode after eating a cookie. Later that evening, family called ems as pt was not arousable. CT head, CTA was initially unremakabke. MRI brain showed large left MCA infarct with early hemorrhage, MRA didnot show any large vessel occlusions. Chest xray showed infiltrate and his antibiotics were escalated. Neurology was following. October 04, repeated ct head had worsening of hemorrhage with 3 mm midline shift. Steroids were started. Family decided to proceed with comfort care because of his advanced age, multiple comorbidities and poor prognosis. Hospice was consulted. Status at Discharge Functional status at discharge: bed bound Overall status at discharge: patient is not back to baseline Time Spent with Patient Time attestation: Total time spent providing and/or coordinating discharge services: Time spent: Greater than 30 minutes Exam Narrative: HEENT: Pharyngeal mucosa pink and intact NECK: No JVD CHEST: Coarse breath sounds.. rapid breathing HEART: NL S1/S2, regular, soft systolic ejection murmur right upper sternal border ABDOMEN: BS hypoactive, soft, nontender, no mass, no bruits EXTREMITIES: No edema NEUROLOGIC: CN with mild right facial droop MUSCULOSKELETAL: No gross deformities the visual inspection PSYCH: Unresponsive to verbal or tactile stimuli Const: General: in distress mild HENMT: Ears: TM's normal bilaterally Face/Nose/Sinus: Normal nares present Eyes: General: appearance normal, both eyes and all related structures Pupils: Equal, round and reactive pupils present (Pinpoint) Neck: Neck: supple Thyroid: thyroid normal Carotids: bruit Resp: Auscultation: diminished lung sounds Other: coarse Cardio: Rate: regular rate and bradycardic Rhythm: regular rhythm GI: Auscultation: normal bowel sounds Urinary Catheter: Urinary Catheter: patent and draining Skin: General skin exam: normal color Neuro: Cranial nerves: Yes Equal, round and reactive pupils present (Pinpoint) Other: Unable to perform due to deep somnolence; s/p Ativan Extrem: General: normal to inspection Psych: Other: Unable to perform due to deep somnolence; s/p Ativan DS: Data Data Completed and Pending Labs on day of discharge: Labs from last 24 hours 10/07/24 05:19 WBC 11.2 H RBC 3.79 L Hgb 12.5 L Hct 38.6 L MCV 101.8 H MCH 33.0 MCHC 32.4 RDW 12.0 Plt Count 175 MPV 9.8 Immature Gran % (Auto) 0.4 Neut % (Auto) 96.4 H Lymph % (Auto) 1.3 L [place] % (Auto) 1.8 L Eos % (Auto) 0.0 Baso % (Auto) 0.1 L Lymph # (Auto) 0.15 L [place] # (Auto) 0.2 Eos # (Auto) 0.0 Baso # (Auto) 0.0 Abs Immat Gran (auto) 0.05 H Absolute Neuts (auto) 10.8 H Absolute Nucleated RBC 0.000 Nucleated RBC % 0.0 Sodium 139 Potassium 4.5 Chloride 105 Carbon Dioxide 27 Anion Gap 7 BUN 53 H D Creatinine 1.24 Estim Creat Clear Calc 35 Estimated GFR 55 L Glucose 131 H Calcium 8.4 Total Bilirubin 1.0 AST 36 ALT 24 Alkaline Phosphatase 56 Total Protein 6.0 L Albumin 3.2 L Preliminary micro results at discharge 10/03/24 17:29 Blood Culture - Preliminary Blood 10/03/24 17:30 Blood Culture - Preliminary Blood Discharge Plan Discharge Attending physician on discharge: Luis Faulkner Consulting providers: Phan Lau; Robert Melvin Discharging Clinician: Keturah Ortega Patient Disposition: Hospice - Medical Facility Diet: NPO Patient Language: Swedish Stand Alone Forms: General Discharge Information Follow-up/Referrals: Deepak Navarro, [Primary Care Provider] - 1 Week ( hospice care) Discharge Medications: Discontinued tamsulosin 0.4 mg capsule 0.4 mg PO HS aspirin 81 mg capsule 81 mg PO DAILY Qty: 30 0RF acetaminophen 500 mg capsule 1,000 mg PO Q6H PRN (Reason: pain) Qty: 30 0RF triamcinolone acetonide 0.1 % cream 1 applic topical BID PRN (Reason: Rash) Qty: 453.6 0RF Rx Instructions: apply to affected area as needed twice daily albuterol sulfate 90 mcg/actuation HFA aerosol inhaler See Rx Instructions .ROUTE .COMPLEX Qty: 8.5 2RF Dose Instruction: INHALE 1 PUFF BY MOUTH EVERY 4 HOURS NEEDED Rx Instructions: INHALE 1 PUFF BY MOUTH EVERY 4 HOURS NEEDED simvastatin 40 mg tablet 40 mg PO HS Qty: 90 1RF irbesartan-hydrochlorothiazide 300-12.5 mg tablet See Rx Instructions .ROUTE .COMPLEX Qty: 90 1RF Dose Instruction: TAKE 1 TABLET BY MOUTH DAILY AT BEDTIME Rx Instructions: TAKE 1 TABLET BY MOUTH DAILY AT BEDTIME Date of admission: 10/03/24 10:44 Primary Care Provider: Deepak Navarro Admitting Provider: Tripp Dutton Attending physician on admission: Tripp Dutton Condition: Stable Quality VTE Prophylaxis VTE prophylaxis: mechanical ordered and pharmacologic ordered Hospitalist MIPS Heart Failure (Exclusion) Patient has history of Heart Transplant or Left Ventricular Assistive Device?: No IF YES, STOP HERE Heart Failure (Qualifier) Patient has current or prior documentation of LVEF less than or equal to 40%, or mod/servere depressed LVSF?: No IF NO, STOP HERE
== END 2024-10-07 09:16 | disposition hospice, inpatient (51) | DRG 64 ==
LOC: ANHED 23:03 → ANHIMU 10-03 00:16 → ANH3MED 10-09 13:32
PROVIDERS: Admitting Provider Internal Medicine; Emergency Provider Emergency Medicine; PCP Internal Medicine; Visit Provider Nurse Practitioner
DX: I63.512 Cerebral infarction due to unspecified occlusion or stenosis of left middle cerebral artery (principal); I61.5 Nontraumatic intracerebral hemorrhage, intraventricular; J18.9 Pneumonia, unspecified organism; J96.01 Acute respiratory failure with hypoxia; N39.0 Urinary tract infection, site not specified; I73.9 Peripheral vascular disease, unspecified; I10 Essential (primary) hypertension; J44.9 Chronic obstructive pulmonary disease, unspecified; E78.2 Mixed hyperlipidemia; N40.0 Benign prostatic hyperplasia without lower urinary tract symptoms; Z20.822 Contact with and (suspected) exposure to COVID-19; Z87.891 Personal history of nicotine dependence; Z51.5 Encounter for palliative care
CPT/HCPCS: 36415; 36600; 70450; 70496; 70498; 70544; 70553; 71045; 80053; 80307; 81001; 82077; 82140; 82805; 82948; 83605; 83735; 83880; 84484; 85018; 85025; 85055; 85610; 85730; 87040; 87086; 87637; 87641; 93005; 93306; 95816; 96365; 96375; 96376; 99285; A9270; A9579; G0378; J0360; J0692; J0696; J1100; J1644; J1953; J2060; J2359; J2543; J7030; Q9967

== ENCOUNTER 2024-10-07 09:17 | HOS | payer OTHER, MEDICARE, SELFPAY ==
--- NOTE | 2024-10-06 19:19 | HP_ITS ---
This report was moved to the correct visit on 10/09/2024. The original report was signed by Antwon Gramajo MD on 10/06/24 1930. H&P: HPI History of Present Illness Date/Time: 10/06/24 19:16 Chief Complaint: Uncontrolled dyspnea Narrative: This 89-year-old gentleman presented to the emergency department on October 02 due to choking and altered mental status while eating a cookie. He was brought the emergency department where initial evaluation with CT scan was unremarkable CT of the head neck were unremarkable. 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 Follow-up chest x-ray showed right lower lobe infiltrate. October 04 follow-up CT brain showed progression of intraparenchymal hemorrhage with mass effect. On October 06 because of his advanced age comorbidities and poor prognosis family opted for comfort care only with inpatient hospice service. Review of Systems Review of Systems: ROS unobtainable: Yes unobtainable due to medical condition PMFSH Past Medical History Medical History Subdural hematoma Peripheral arterial disease Polyp, nasal Family History Family History Mother Patient's mother is , Onset Age: 91Father Family history of lung cancer, Onset Age: 52 Social History Social History Smoking packs per day: 1 Smoking cigarettes per day: 20.0 Years smoked: 15 Smoking pack-years: 15.00 Smoking status: Former smoker Tobacco type: cigarettes Smoking end date: 12/24/1964 Alcohol intake: current Drinks per week: 14 Substance use: never Substance use type: does not use Do You Feel Safe in your Home?: Yes Lack of Transportation: No Lack of Food: Never True Current Housing: I Have Housing Concerned About Future Housing: No Difficulty Paying Gas/Electric Bills: No Difficulty Paying for Meds: No Currently Unemployed: No Education: Associate Degree Difficulty w/ Childcare or Family Care: No Living arrangements: with family Additional living arrangements comments: Spiritual care concerns: No Meds Home Medications and Allergies Home Medications ?Medication ?Instructions ?Recorded ?Confirmed ?Type triamcinolone acetonide 0.1 % 1 applic topical BID PRN Rash 07/29/22 10/03/24 Rx topical cream #453.6 grams albuterol sulfate 90 mcg/actuation See Rx Instructions .Route 12/29/23 10/03/24 Rx aerosol inhaler .COMPLEX #8.5 grams tamsulosin 0.4 mg capsule 0.4 mg PO HS 02/14/24 10/03/24 History acetaminophen 500 mg capsule 1,000 mg (2 x 500 mg) PO Q6H PRN 04/29/24 10/03/24 Rx pain #30 caps aspirin 81 mg capsule 81 mg PO DAILY #30 caps 04/29/24 10/03/24 Rx simvastatin 40 mg tablet 40 mg PO HS #90 tabs 08/07/24 10/03/24 Rx irbesartan 300 See Rx Instructions .Route 08/19/24 10/03/24 Rx mg-hydrochlorothiazide 12.5 mg .COMPLEX #90 tabs tablet Allergies Allergy/AdvReac Type Severity Reaction Status Date / Time No Known Allergies Allergy Verified 10/03/24 01:49 Vital Signs Vital Signs - 24 hr 10/05/2518:40 10/06/2519:00 10/06/2519:25 Temperature 98.4 F Pulse Rate 94 92 94 Respiratory Rate 22 H 22 H Blood Pressure 176/75 H Pulse Oximetry 98 98 Oxygen Delivery Nasal Cannula Oxygen Flow Rate 2 10/05/2521:00 10/06/2499:00 10/06/2499:00 Temperature 97.7 F Pulse Rate 87 88 87 Respiratory Rate 22 H Blood Pressure 167/101 H Pulse Oximetry 97 Oxygen Delivery Oxygen Flow Rate 10/06/2499:05 10/06/2500:40 10/06/2502:30 Temperature Pulse Rate 88 71 79 Respiratory Rate 22 H 28 H Blood Pressure Pulse Oximetry 97 98 Oxygen Delivery Nasal Cannula Nasal Cannula Oxygen Flow Rate 2 2 10/06/2502:32 10/07/2503:00 10/06/2504:59 Temperature 98.3 F Pulse Rate 79 77 78 Respiratory Rate 28 H Blood Pressure 153/88 H Pulse Oximetry 98 Oxygen Delivery Oxygen Flow Rate 10/06/2506:48 10/07/2507:00 10/06/2508:03 Temperature 98.3 F Pulse Rate 84 69 Respiratory Rate 32 H Blood Pressure 170/105 H Pulse Oximetry 96 94 Oxygen Delivery Nasal Cannula Oxygen Flow Rate 2 10/06/2509:00 10/06/2510:35 10/07/2511:00 Temperature 98.8 F Pulse Rate 52 L 66 50 L Respiratory Rate 24 H Blood Pressure 174/55 H Pulse Oximetry 100 Oxygen Delivery Oxygen Flow Rate 10/06/2513:00 10/06/2514:47 Temperature 98.5 F Pulse Rate 64 64 Respiratory Rate 28 H Blood Pressure 160/72 H Pulse Oximetry 96 Oxygen Delivery Oxygen Flow Rate Exam Narrative: HEENT: Pharyngeal mucosa pink and intact NECK: No JVD CHEST: Coarse breath sounds.. Normal effort HEART: NL S1/S2, regular, soft systolic ejection murmur right upper sternal border ABDOMEN: BS hypoactive, soft, nontender, no mass, no bruits EXTREMITIES: No edema NEUROLOGIC: CN with mild right facial droop MUSCULOSKELETAL: No gross deformities the visual inspection PSYCH: Unresponsive to verbal or tactile stimuli H&P: Results Labs Labs: Short CBC 10/06/24 Range/Units 05:01 WBC 15.3 H (4.5-10.0) K/mm3 Hgb 12.1 L (14.0-18.0) g/dL Hct 37.5 L (42.0-52.0) % Plt Count 163 (150-375) k/mm3 BMP 10/06/24 05:01 Sodium 137 Potassium 3.9 Chloride 104 Carbon Dioxide 26 BUN 41 H Creatinine 1.22 Glucose 119 H Calcium 8.3 L Liver Function 10/06/24 Range/Units 05:01 Total Bilirubin 1.2 (0.2-1.3) mg/dL AST 39 (17-59) U/L ALT 23 (6-50) U/L Alkaline Phosphatase 70 (38-126) U/L Albumin 3.2 L (3.5-5.1) g/dL Assessment and Plan Assessment and plan (1) Hospice care: Code(s): Z51.5 - Encounter for palliative care Status: Acute Assessment and Plan: * Meet inpatient hospice criteria due to requiring continuous IV morphine for control of dyspnea * P.r.n. palliative regimen ordered (2) Acute respiratory failure with hypoxia: Code(s): J96.01 - Acute respiratory failure with hypoxia Status: Acute (3) Pneumonia: Code(s): J18.9 - Pneumonia, unspecified organism Status: Acute (4) Subdural hematoma: Code(s): S06.5XAA - Traumatic subdural hemorrhage with loss of consciousness status unknown, initial encounter Status: Acute (5) Post concussive encephalopathy: Code(s): F07.81 - Postconcussional syndrome Status: Acute (6) Chronic kidney disease, unspecified: Qualifiers: Chronic kidney disease stage: stage 3 (moderate) Chronic kidney disease stage 3 subtype: stage 3a (GFR 45-59) Qualified Code(s): N18.31 - Chronic kidney disease, stage 3a Code(s): N18.9 - Chronic kidney disease, unspecified Status: Acute (7) Peripheral arterial disease: Code(s): I73.9 - Peripheral vascular disease, unspecified Status: Acute (8) Essential (primary) hypertension: Code(s): I10 - Essential (primary) hypertension Status: Acute Please be advised this is a medical document. It is intended for [id number] communication. It is written in medical language and may contain unfamiliar abbreviations or verbiage. Medical documents are intended to carry relevant information, facts as evident, and the clinical opinion of the practitioner at the time of the encounter. This report may have been done utilizing a voice recognition system. Attempts have been made to correct errors. However, there may be uncorrected grammatical, spelling, and recognition errors present. The file time of this note does not necessarily represent the time the patient was seen. Report Initialized date/time: Antwon Gramajo MD 10/06/241918 Electronically signed by: Antwon Gramajo MD 10/06/241929 [facility]
--- NOTE | 2024-10-07 09:50 | PCDIET ---
Pt is going on hospice care, comfort measures. No further nutrition recommendations.
[2024-10-07 10:12] VITALS: PULSE 70
[2024-10-07] MEDS: MORPHINE 50 MG/NS 100ML (*CRX) 50 MG/100 ML BAG IV CONT (10:12)
--- OUTSIDE RECORDS SUMMARY | 2024-10-07 10:13 | XMS_ITS | Clinical Summary ---
Author Organization [facility] Address [facility] [place] [address] Care Team Providers Care Senior Maintenance Mechanic Name Role Phone Carlotta Araujo NP Primary Care Provider [phone] Medications Irbesartan-hydr oCHLOROthiazide 300-12.5 MG Tab Take [...] on file Legal Sex Male 1:06 PM HANDKERCHIEF PRESSER Gender Identity Not on file Sexual Orientation Not on file Last Filed Vital Signs Vital Sign Reading Time Taken Comments Blood Pressure 123/89 07/26/2023 10:18 AM HANDKERCHIEF PRESSER Pulse 85 07/26/2023 10:18 AM HANDKERCHIEF PRESSER Temperature - - Respiratory Rate - - Oxygen Saturation 100% 07/26/2023 10:18 AM HANDKERCHIEF PRESSER Inhaled Oxygen Concentration - - Weight - - Height 177.8 cm (5' 10 ) 07/26/2023 10:18 AM HANDKERCHIEF PRESSER Body Mass Index - - Plan of Treatment Health Maintenance Due Date Last Done Comments Zoster Vaccines (1 of 2) 1985 Annual Medicare Wellness Visit 2000 Pneumococcal Vaccine: 50+ Years (1 of 1 - PCV) 2000 RSV Immunization or 60+ Years (1 - 1-dose 75+ series) 2010 DTaP, Tdap and Td Vaccines (1 - Tdap) 06/10/2021 06/09/2021 COVID-19 Vaccine ( season) 2024 2023, 2022, 11/30/2021, Additional history exists PHQ-2 (Physician [place]) 06/26/2024 Meningococcal B Vaccine Aged Out No l onger eligible based on patient's age to complete this topic Meningococcal Vaccine Aged Out No austen jani eligible based on patient's age to complete this topic RSV Immunizations Under 20 Months Aged Out No longer eligible based on patient's age to complete this topic Insurance [facility] Care Teams Senior Maintenance Mechanic Relationship Specialty Start Date End Date Carlotta Araujo NP [address] [place] [address] PCP - General Nurse Practitioner Family 06/21/23
--- OUTSIDE RECORDS SUMMARY | 2024-10-07 10:13 | XMS_ITS | Clinical Summary ---
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 Will obtain a baseline arterial duplex follow-up 1 week. PVD (peripheral vascular disease) 05/16/2024 Assessment & Plan (05/16/2024 1:51 PM COIL WINDER REPAIR): Impression: Patient has stable non disabling claudication [...] 05/16/2024 Assessment & Plan (05/19/2024 2:39 PM COIL WINDER REPAIR): Hypertension chronic controlled. Continue current medical management. Assessment & Plan (05/16/2024 1:50 PM COIL WINDER REPAIR): Impression: Chronic and stable. Plan: Continue irbesartan-hydrochlorothiazide Mixed hyperlipidemia 05/16/2024 Assessment & Plan (05/19/2024 2:39 PM COIL WINDER REPAIR): Hyperlipidemia chronic controlled. Continue Zocor. Assessment & Plan (05/16/2024 1:50 PM COIL WINDER REPAIR): Impression: Chronic stable. Plan: Continue simvastatin. Social [...] Comments Blood Pressure 137/59 05/15/2024 9:27 AM COIL WINDER REPAIR Pulse 71 05/15/2024 9:27 AM COIL WINDER REPAIR Temperature - - Respiratory Rate - - Oxygen Saturation - - Inhaled Oxygen Concentration - - Weight 71.7 kg (158 lb) 05/15/2024 9:27 AM COIL WINDER REPAIR Height 177.8 cm (5' 10 ) 05/15/2024 9:27 AM COIL WINDER REPAIR Body Mass Index 22.67 05/15/2024 9:27 AM COIL WINDER REPAIR Plan of Treatment Health Maintenance Due Date Last Done Comments Depression Screening 1935 Fall Risk Assessment 1935 DTaP/Tdap/Td Vaccine (1 - Tdap) 1946 Hepatitis B Screening 1953 Pneumococcal vaccine 65+ (1 of 1 - PCV) 1985 Zoster Vaccine (1 of 2) 1985 Well Visit 65+ 2000 Influenza Vaccine (#1) 2024 Insurance [place] [id number] [place] [id number] Care Teams Manpower Development Manager Relationship Specialty Start Date End Date Spencer Fields MD [address] [place] [address] PCP - General Family Medicine 11/26/18
--- OUTSIDE RECORDS SUMMARY | 2024-10-07 10:13 | XMS_ITS | Referral Summary ---
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 Will obtain a baseline arterial duplex follow-up 1 week. PVD (peripheral vascular disease) 05/16/2024 Assessment & Plan (05/16/2024 1:51 PM BROACHING MACHINE SET UP OPERATOR): Impression: Patient has stable non disabling claudication [...] 05/16/2024 Assessment & Plan (05/19/2024 2:39 PM BROACHING MACHINE SET UP OPERATOR): Hypertension chronic controlled. Continue current medical management. Assessment & Plan (05/16/2024 1:50 PM BROACHING MACHINE SET UP OPERATOR): Impression: Chronic and stable. Plan: Continue irbesartan-hydrochlorothiazide Mixed hyperlipidemia 05/16/2024 Assessment & Plan (05/19/2024 2:39 PM BROACHING MACHINE SET UP OPERATOR): Hyperlipidemia chronic controlled. Continue Zocor. Assessment & Plan (05/16/2024 1:50 PM BROACHING MACHINE SET UP OPERATOR): Impression: Chronic stable. Plan: Continue simvastatin. Social [...] Comments Blood Pressure 137/59 05/15/2024 9:27 AM BROACHING MACHINE SET UP OPERATOR Pulse 71 05/15/2024 9:27 AM BROACHING MACHINE SET UP OPERATOR Temperature - - Respiratory Rate - - Oxygen Saturation - - Inhaled Oxygen Concentration - - Weight 71.7 kg (158 lb) 05/15/2024 9:27 AM BROACHING MACHINE SET UP OPERATOR Height 177.8 cm (5' 10 ) 05/15/2024 9:27 AM BROACHING MACHINE SET UP OPERATOR Body Mass Index 22.67 05/15/2024 9:27 AM BROACHING MACHINE SET UP OPERATOR Plan of Treatment Not on file Insurance [facility] MDCR HMO [facility] MEDICARE Address: [address] [address] [place] [id number] [facility] MEDICARE [facility] MEDIC[facility] Address: [address] [address] [place] [address] [employer] MEDICARE ADVANTAGE [facility] MEDICARE Address: [place] [id number] [place] [id number] Care Teams Pinmaker Relationship Specialty Start Date End Date Spencer Fields MD [address] [place], [place] [address] PCP - General Family Medicine 11/26/18
[2024-10-07] MEDS: ARTIFICIAL TEARS OPHTH SOLN 15 ML BOTTLE 1 DROP EACH EYE ×2 (12:50→18:35)
[2024-10-07] MEDS: GLYCOPYRROLATE INJ (*SP) 0.2 MG/ML VIAL 0.1 MG IV PUSH (12:51)
--- NOTE | 2024-10-07 16:44 | P.PNIM_ITS ---
Progress Note: A&P Assessment and Plan (1) Hospice care: Code(s): Z51.5 - Encounter for palliative care Status: Acute Assessment and Plan: * Meet inpatient hospice criteria due to requiring continuous IV morphine for control of dyspnea * P.r.n. palliative regimen ordered * 10/07/2024 abdominal respirations c/w progressive respiratory failure (2) Acute respiratory failure with hypoxia: Code(s): J96.01 - Acute respiratory failure with hypoxia Status: Acute (3) Pneumonia: Code(s): J18.9 - Pneumonia, unspecified organism Status: Acute (4) Post concussive encephalopathy: Code(s): F07.81 - Postconcussional syndrome Status: Acute (5) Subdural hematoma: Code(s): S06.5XAA - Traumatic subdural hemorrhage with loss of consciousness status unknown, initial encounter Status: Acute Subjective Date/time seen: 10/07/24 16:44 Interval history: Family at bedside. More abdominal respirations with mild tachypnea. Exam Const: Other: HEENT: Pharyngeal mucosa pink and intact NECK: No JVD CHEST: Coarse breath sounds, mild tachypnea, abdominal breathing HEART: NL S1/S2, regular, soft systolic ejection murmur right upper sternal border ABDOMEN: BS hypoactive, soft, nontender, no mass, no bruits EXTREMITIES: No edema NEUROLOGIC: CN with mild right facial droop MUSCULOSKELETAL: No gross deformities the visual inspection PSYCH: Unresponsive to verbal or tactile stimuli Objective Data Vital Signs Vital Signs: Vital Signs - 24 hr 10/07/24 10:12 Pulse Rate 70 Meds/Results Medications: Active Medications Generic Name Dose Route Start Last Admin Trade Name Freq PRN Reason Stop Dose Admin Acetaminophen 650 mg 10/07/24 10:19 Acetaminophen 650 Mg Suppository RECTAL Q4H PRN Pain or Fever Artificial Tears 1 drop 10/07/24 13:00 10/07/24 12:50 Artificial Tears Ophth Soln 15 Ml Bottle EACH EYE 1 drop TID BRODY Administration Artificial Tears 1 drop 10/07/24 10:29 Artificial Tears Ophth Soln 15 Ml Bottle EACH EYE TID PRN Dry Eye(s) Bisacodyl 10 mg 10/07/24 10:20 Bisacodyl 10 Mg Suppository RECTAL DAILY PRN Constipation Glycopyrrolate 0.1 mg 10/07/24 10:27 10/07/24 12:51 Glycopyrrolate Inj (*Sp) 0.2 Mg/Ml Vial IV PUSH 0.1 mg Q4H PRN Administration EXCESS SECRETIONS Morphine Sulfate 50 mg in 100 mls @ 1 mls/hr 10/07/24 10:00 10/07/24 10:12 IV CONT 0.5 mg/hr .Q24H BRODY 1 mls/hr Administration 0.5 MG/HR Lorazepam 1 mg 10/07/24 10:00 Lorazepam Inj (*Crx) 2 Mg/Ml Vial IV PUSH Q2H PRN SOB/RESTLESSNESS Morphine Sulfate 1 mg 10/07/24 09:59 Morphine Sulfate (*Crx) 2 Mg/Ml Inj IV PUSH Q2H PRN PAIN/SOB Prochlorperazine Edisylate 10 mg 10/07/24 10:29 Prochlorperazine Edisylate 10 Mg/2 Ml Vial IV PUSH Q4H PRN Nausea And Vomiting
[2024-10-07 16:46] VITALS: BP 191/74; PULSE 83; RESP 24; TEMP 36.7; O2SAT 93
[2024-10-07 19:47] VITALS: O2SAT 93
[2024-10-07 23:53] VITALS: BP 121/60; PULSE 102; RESP 22; TEMP 36.3; O2SAT 90
--- NOTE | 2024-10-08 16:49 | PM.DDS ---
Discharge Summary Date and Time Date of : 10/08/24 Time of : 03:05 Provider Pronounced By: 2 RNs Name of First RN That Pronounced: RICARDA URBINA RN Name of Second RN That Pronounced: MELIDA UNDERWOOD RN Probable Cause of Probable Cause of : acute respiratory failure with hypoxia due to pneumonia Summary Hospital Course: Admitted to inpatient hospice service for symptom management. Medications were titrated to comfort. Mr. Celeste peacefully. Additional Data Confirmation of as documented by pronouncing clinician: Pupillary Reflex, Palpable Pulses, Response to Stimuli, Heart Tones and Breath Sounds Name of Provider Notified: CORBY MARMOLEJO Time Provider Notified: 03:35 Provider Requests Autopsy: No Family Requests Autopsy: No Mobile Service Rv Technician Notified: Yes Date [facility] Notified of : 10/08/24 Time [facility] Notified of : 03:40
== END 2024-10-08 06:30 | disposition expired | DRG 951 ==
PROVIDERS: Admitting Provider Internal Medicine; PCP Internal Medicine; Visit Provider Internal Medicine
DX: Z51.5 Encounter for palliative care (principal); J96.01 Acute respiratory failure with hypoxia; S06.5XAA Traumatic subdural hemorrhage with loss of consciousness status unknown, initial encounter; J18.9 Pneumonia, unspecified organism; F07.81 Postconcussional syndrome; I12.9 Hypertensive chronic kidney disease with stage 1 through stage 4 chronic kidney disease, or unspecified chronic kidney disease; N18.31 Chronic kidney disease, stage 3a; I73.9 Peripheral vascular disease, unspecified; E78.5 Hyperlipidemia, unspecified; N40.0 Benign prostatic hyperplasia without lower urinary tract symptoms; J44.9 Chronic obstructive pulmonary disease, unspecified; Z87.891 Personal history of nicotine dependence
CPT/HCPCS: A9270; J1596; J2270